=== PATIENT | female | born 1955 | race Caucasian/White ===

== ENCOUNTER → 2017-11-26 | Outpatient (CLI) | payer OTHER, BC ==
[~2017-11-26] MED LIST: AMAN100C18 PO; ASPEC325 PO; BUPR100T8 PO; CALCTAB5 PO; DILT-113 PO; FLUO20CA20 PO; FRRG PO; GLUCTAB7 PO; IBUP-1277 PO; LORA1TAB13 PO; MELO7.5T6 PO; MULT-506 PO; MYS50 PO; PROP20TA66 PO
--- NOTE | 2017-11-26 12:11 | EXERCISE STRESS ECHO ---
*NOTICE TO RECEIVING REPUBLICAN AGENCY This information is strictly Confidential and protected under [place] law. [place] law prohibits you from making any further disclosure of this information unless further disclosure is expressly permitted by the written consent of the person to whom it pertains or is authorized by law. A general authorization for the release of medical or other information is not sufficient for this purpose. Hospital accepts no responsibility if the information is made available to any other person, INCLUDING THE PATIENT. Interpretation Summary * Name: BAR AKINS Study Date: 11/26/2017 09:42 AM BP: 118/77 mmHg * Patient Location: [facility] HR: 77 * : 1955 (M/d/yyyy) Gender: Female Height: 67 in * Age: 62 yrs Ethnicity: [place] Weight: 160 lb * Ordering Physician: Garcia Bardales * Referring Physician: Garcia Bardales * Performed By: Libia Dacosta RDCS * * Reason For Study: Pre Op, Atypical Chest Pain, Dyspnea on Exertion, Abnormal EKG * BSA: 1.8 m2 * -- Conclusions -- * Nonischemic exercise stress echocardiogram. * No arrhythmias. * Normal HR and BP response to exercise. * Markedly reduced exercise tolerance for age. * At rest, normal LV chamber size with mild concentric LVH. * Normal LV systolic function, EF 55-60%. * No segmental left ventricular wall motion abnormalities are noted. * Grade I diastolic dysfunction. * Aortic valve sclerosis mild, without significant aortic valvular stenosis. Procedure Details * ECHOEX, CPT #[id number] * ECHO DOPPLER, CPT #[id number] * ECHO COLOR FLOW, CPT #[id number] Left Ventricle * The left ventricle is normal in size. * There is mild concentric left ventricular hypertrophy. * Ejection Fraction = 55-60%. * Left ventricular systolic function is normal. * No segmental left ventricular wall motion abnormalities are noted. * Resting wall motion: Normal. Stress wall motion: Appropriate increase in Left ventricular systolic function and decrease in cavity size. No stress induced segmental wall motion abnormalities. Right Ventricle * The right ventricular cavity size is normal (basal dimension <4.2 cm in right ventricular apical 4-chamber view). * The right ventricular systolic function is normal as assessed by tricuspid annular plane systolic excursion (TAPSE) (normal >1.5 cm). Atria * The left atrium is mildly dilated. * Right atrial size is normal. * No ASD detected; PFO is not assessed. Mitral Valve * There is mild mitral valve prolapse. * There is no mitral valve stenosis. * There is mild to moderate mitral regurgitation. Tricuspid Valve * The tricuspid valve is normal in structure and function. Aortic Valve * The aortic valve is trileaflet. * Aortic valve sclerosis mild, without significant aortic valvular stenosis. * There is no significant aortic regurgitation. Pulmonic Valve * The pulmonary valve is not well seen, but the Doppler examination is normal without significant regurgitation or stenosis. Great Vessels * The aortic root is normal size. Pericardium * There is no pericardial effusion. Stress Parameters * The baseline ECG displays normal sinus rhythm. * Baseline ECG displays Q waves in the anterior leads. * Stress ECG: No ST changes. No arrhythmias. * There was no new ST segment depression. * No arrhythmia were noted with stress. * The stress portion of this study was personally supervised by the undersigned interpreting physician. * Rest heart rate was '77' BPM. * Rest blood pressure was '118/77' * Maximum heart rate achieved was 141 bpm. * Maximum heart rate was 89 % of maximum age-predicted heart rate. * Maximum blood pressure was '165/70' * Total exercise time was '04:21' * Maximum exercise MET level achieved was '6.20' METS * Maximum treadmill speed was '2.50' miles per hour. * Maximum treadmill elevation was '12.00'% grade. Left Ventricular Diastolic Function * Grade I diastolic dysfunction, (abnormal relaxation pattern). MMode 2D Measurements and Calculations IVSd 1.2 cm IVSs 1.6 cm LVIDd 3.7 cm LVIDs 2.6 cm LVPWd 1.1 cm LVPWs 1.8 cm IVS/LVPW 1.2 FS 29.0 % EDV(Teich) 56.7 ml ESV(Teich) 24.6 ml EF(Teich) 56.6 % EDV(cubed) 49.1 ml ESV(cubed) 17.6 ml EF(cubed) 64.2 % % IVS thick 27.2 % % LVPW thick 71.9 % LV mass(C)d 136.8 grams LV mass(C)dI 74.4 grams/m\S\2 LV mass(C)s 166.6 grams LV mass(C)sI 90.6 grams/m\S\2 SV(Teich) 32.1 ml SI(Teich) 17.4 ml/m\S\2 SV(cubed) 31.5 ml SI(cubed) 17.1 ml/m\S\2 Ao root diam 3.3 cm Ao root area 8.7 cm\S\2 ACS 2.2 cm LA dimension 4.2 cm LA/Ao 1.3 LVAd ap4 28.3 cm\S\2 LVLd ap4 8.2 cm EDV(MOD-sp4) 84.7 ml EDV(sp4-el) 83.0 ml LVAs ap4 15.7 cm\S\2 LVLs ap4 6.3 cm ESV(MOD-sp4) 33.8 ml ESV(sp4-el) 33.4 ml EF(MOD-sp4) 60.1 % EF(sp4-el) 59.8 % LVAd ap2 26.2 cm\S\2 LVLd ap2 8.4 cm EDV(MOD-sp2) 72.7 ml EDV(sp2-el) 69.4 ml LVAs ap2 15.7 cm\S\2 LVLs ap2 7.1 cm ESV(MOD-sp2) 32.4 ml ESV(sp2-el) 29.3 ml EF(MOD-sp2) 55.5 % EF(sp2-el) 57.8 % LVLd %diff 2.2 % EDV(MOD-bp) 77.7 ml LVLs %diff 11.4 % ESV(MOD-bp) 33.6 ml EF(MOD-bp) 56.8 % SV(MOD-sp4) 50.9 ml SI(MOD-sp4) 27.7 ml/m\S\2 SV(MOD-sp2) 40.3 ml SI(MOD-sp2) 21.9 ml/m\S\2 SV(MOD-bp) 44.2 ml SI(MOD-bp) 24.0 ml/m\S\2 SV(sp4-el) 49.6 ml SI(sp4-el) 27.0 ml/m\S\2 SV(sp2-el) 40.1 ml SI(sp2-el) 21.8 ml/m\S\2 Doppler Measurements and Calculations MV E max fabricio 61.9 cm/sec MV A max fabricio 89.1 cm/sec MV E/A 0.69 MV dec time 0.26 sec Ao V2 max 112.6 cm/sec Ao max PG 5.1 mmHg Ao max PG (full) 2.6 mmHg LV V1 max PG 2.5 mmHg LV V1 max 79.3 cm/sec MR max fabricio 616.9 cm/sec MR max PG 152.6 mmHg MR mean fabricio 429.9 cm/sec MR mean PG 84.4 mmHg MR VTI 175.8 cm MR PISA 1.2 cm\S\2 MR PISA radius 0.43 cm PA V2 max 65.7 cm/sec PA max PG 1.7 mmHg TR max fabricio 211.9 cm/sec
== END | disposition home or self-care (01) ==
LOC: C.CPL 09:51
PROVIDERS: ATTEND Internal Medicine Cardiovascular Disease
DX: Z01.810 Encounter for preprocedural cardiovascular examination (principal); R07.89 Other chest pain; R06.09 Other forms of dyspnea; R94.31 Abnormal electrocardiogram [ECG] [EKG]

== ENCOUNTER 2019-06-07 09:04 | Inpatient (IN) ==
--- NOTE | 2019-04-30 22:02 | PAT Medication Instructions ---
Medication Instructions Date of Service April 30, 2019 Home Medications bupropion HCl 450 mg PO QAM calcium carbonate [Calcium 600] 600 mg PO QAM diltiazem HCl [Cardizem CD] 180 mg PO QAM fluoxetine 40 mg PO QAM ibuprofen 400 mg PO UD PRN lorazepam 1 mg PO Q6H PRN meloxicam 15 mg PO QAM multivitamin 1 tab PO QAM primidone 100 mg PO QID propranolol 20 mg PO TID ASK your surgeon for instructions ibuprofen 400 mg PO UD PRN meloxicam 15 mg PO QAM DO NOT take the morning of surgery calcium carbonate [Calcium 600] 600 mg PO QAM Take morning of surgery With a small sip of water, OTHERWISE NOTHING TO EAT OR DRINK AFTER MIDNIGHT: bupropion HCl 450 mg PO QAM diltiazem HCl [Cardizem CD] 180 mg PO QAM fluoxetine 40 mg PO QAM lorazepam 1 mg PO Q6H PRN (if needed) primidone 100 mg PO QID propranolol 20 mg PO TID Take evening before surgery lorazepam 1 mg PO Q6H PRN primidone 100 mg PO QID propranolol 20 mg PO TID Other Notes If you have any questions please call us at [phone] or [phone] or [phone] or [phone]
--- NOTE | 2019-05-21 21:05 | PAT Medication Instructions ---
Medication Instructions Date of Service May 21, 2019 Home Medications bupropion HCl 150 mg PO QAM calcium carbonate [Calcium 600] 600 mg PO QAM diltiazem HCl [Cardizem CD] 180 mg PO QAM fluoxetine 40 mg PO QAM ibuprofen 400 mg PO UD PRN lorazepam 1 mg PO Q6H PRN meloxicam 15 mg PO QAM multivitamin 1 tab PO QAM primidone 75 mg PO TID propranolol 20 mg PO TID bupropion HCl 300 mg PO QAM ASK your surgeon for instructions ibuprofen 400 mg PO UD PRN meloxicam 15 mg PO QAM DO NOT take the morning of surgery calcium carbonate [Calcium 600] 600 mg PO QAM multivitamin 1 tab PO QAM Take morning of surgery With a small sip of water, OTHERWISE NOTHING TO EAT OR DRINK AFTER MIDNIGHT: bupropion HCl 150 mg PO QAM diltiazem HCl [Cardizem CD] 180 mg PO QAM fluoxetine 40 mg PO QAM lorazepam 1 mg PO Q6H PRN (if needed) primidone 75 mg PO TID propranolol 20 mg PO TID bupropion HCl 300 mg PO QAM Other Notes If you have any questions please call us at [phone] or [phone] or [phone] or [phone]
--- NOTE | 2019-05-22 14:35 | Anesthesiology Consultation ---
Date of Service May 22, 2019 Assessment & Plan (1) Encounter for pre-operative examination: Chart Review Chart Review: Acceptable Risk for Surgery (pending pre op testing) and Patient seen in Pre Admission Testing Teaching & Discussion Instructed NPO after midnight before surgery, except medications with 15 cc of water. Medication instructions provided according to the PAT guidelines. History Surgery Operation Date: 06/07/19 13:15 Proposed Procedures p Right Total Knee Replacement - Phill Colmenares MD Height/Weight Height: 5 ft 7.5 in Weight: 77.2 kg Allergies Allergy/AdvReac Type Severity Reaction Status Date / Time Sulfa (Sulfonamide Allergy Unknown HIVES Verified 05/17/19 11:00 Antibiotics) oxycodone [From Percocet] AdvReac Unknown SEVERE Verified 05/17/19 11:00 HAEADACHE Medications Home Medications Medication Instructions Recorded Confirmed Last Taken bupropion HCl 150 mg PO QAM 10/31/18 05/17/19 11/21/18 calcium carbonate [Calcium 600] 600 mg PO QAM 10/31/18 05/17/19 11/21/18 diltiazem HCl [Cardizem CD] 180 mg PO QAM 10/31/18 05/17/19 11/21/18 fluoxetine 40 mg PO QAM 10/31/18 05/17/19 11/21/18 ibuprofen 400 mg PO UD PRN 10/31/18 05/17/19 Unknown lorazepam 1 mg PO Q6H PRN 10/31/18 05/17/19 Unknown meloxicam 15 mg PO QAM 10/31/18 05/17/19 11/21/18 multivitamin 1 tab PO QAM 10/31/18 05/17/19 11/21/18 primidone 75 mg PO TID 10/31/18 05/17/19 11/21/18 propranolol 20 mg PO TID 10/31/18 05/17/19 11/21/18 bupropion HCl 300 mg PO QAM 05/17/19 05/17/19 Unknown Past Medical History Medical History Anxiety Depression Hx of left bundle branch block Hypertension Osteoarthritis Parkinsonism HEAD AND HANDS Right knee DJD Exercise / Class Metabolic Activity II 4-5 Yardwork/Stairs/Walk up hill (Denies CP or SOB with 1 FOS, maybe SOB with 2 FOS) Past Family History Family History Father FHx: myocardial infarction, Onset Age: 73 Other No family history of adverse response to anesthesia Past Surgical History Surgical History History of cataract surgery bilateral History of cholecystectomy History of colonoscopy History of dilatation and curettage History of total knee replacement LEFT Past Anesthesia History No Hx of Anesthesia Complications and No Family Hx of Anesthesia Complications History of PONV No Hx of PONV and Hx of Motion Sickness Social History Smoking Status: Never smoker Do You Dip or Chew Tobacco: No Hx Alcohol Use: No Hx Substance Use: No substance use type: does not use Review of Systems Pt denies any recent chest pain, shortness of breath, palpitations, cough, fever or URI. Physical Exam Vital Signs BP: 111/73 P: 68bpm SPO2: 95% RA T: 98.2 F R: 16 ENMT Mouth: + dental restorations (maybe some crowns, pt unsure); no chipped teeth and no loose teeth Thyromental Distance: > or= 3.5 Finger Breadths (3.5) Mallampati Class: I Neck normal visual inspection; neck extension not limited Respiratory normal respiratory effort Auscultation: lungs clear to auscultation bilaterally Cardiovascular Rate/Rhythm: regular rate and regular rhythm Heart Sounds: no murmur Extremities: no edema
--- NOTE | 2019-05-22 15:20 | XRay Report ---
XR chest Pre-admission PA/Lat CLINICAL HISTORY: Preoperative chest COMPARISON STUDY: 09/14/2014 FINDINGS: The cardiac and mediastinal contours are normal. There is no evidence of focal pulmonary co nsolidation. There is no evidence of failure. No pleural effusions are visualized.[ IMPRESSION: No active disease in the chest. ACT 112: Negative or not required by law. Electronically signed by: Pepe Santiago M.D. 05/22/2019 3:19 PM
[2019-05-22 15:56] LABS: Basophils # (auto) 0.06 K/uL (0-0.2); Basophils % (auto) 0.6 %; Eosinophils # (auto) 0.61 K/uL (0-0.5); Eosinophils % (auto) 6.1 %; Hematocrit (blood only) 44.1 % (37-47); Hemoglobin 14.4 g/dL (12.0-16.0); Immature Granulocytes # (auto) 0.03 K/uL (0.00-0.02); Immature Granulocytes % (auto) 0.3 %; Lymphocytes % (auto) 27.1 %; Mean Corpuscular Hemoglobin 32.4 pg (25-34); Mean Corpuscular Hgb Conc 32.7 g/dL (32-36); Mean Corpuscular Volume 99.1 fL (80-100); Mean Platelet Volume 10.5 fL (7.4-10.4); Monocytes # (auto) 0.72 K/uL (0.11-0.59); Monocytes % (auto) 7.2 %; Neutrophils # (auto) 5.86 K/uL (1.4-6.5); Neutrophils % (auto) 58.7 %; Platelet Count 287 K/uL (130-400); RDW Coefficient of Variation 12.6 % (11.5-14.5); RDW Standard Deviation 45.6 fL (36.4-46.3); Red Blood Count 4.45 M/uL (4.2-5.4); White Blood Count 9.98 K/uL (4.8-10.8)
[2019-05-22 16:08] LABS: BUN Creatinine Ratio 11.7 (10-20); Blood Urea Nitrogen 11 mg/dl (7-18); C Reactive Protein < 0.29 mg/dl (0-0.29); Calcium 9.1 mg/dl (8.5-10.1); Carbon Dioxide 26 mmol/L (21-32); Chloride 109 mmol/L (98-107); Creatinine Clr Calc Pharmacy 61.9 ml/min; Est GFR (African American) 70.2; Est GFR (Non-African American) 60.5; Glucose 93 mg/dl (70-99); Potassium 4.2 mmol/L (3.5-5.1); Sodium 139 mmol/L (136-145)
[2019-05-22 16:17] LABS: Partial Thromboplastin Ratio 0.9; Prothrombin Time 10.3 Seconds (9.0-12.0)
--- NOTE | 2019-05-22 16:25 | Electrocardiogram Report ---
Test Reason : Blood Pressure : / mmHG Vent. Rate : 070 BPM Atrial Rate : 070 BPM P-R Int : 198 ms QRS Dur : 098 ms QT Int : 430 ms P-R-T Axes : 003 -13 103 degrees QTc Int : 464 ms Normal sinus rhythm Poor R wave progression, consider anterior AL vs. lead placement vs. LVH Abnormal ECG When compared with ECG of 14-SEP-2014 11:50, Confirmed by Leonardo Ward ([id number]) on 05/22/2019 4:25:38 PM Referred By: Phill Colmenares Confirmed By:Leonardo Ward
[~2019-06-07 09:04] MED LIST changes: +ACETAMINOPHEN 500 MG TAB PO SCH; -AMAN100C18 PO; -ASPEC325 PO; +ATROPINE SULFATE 0.1 MG/ML 10ML SYR IV PRN; +BUPIVACAINE 0.5 % 5 MG/1 ML PF 10ML VIAL ONE; +BUPIVACAINE LIPOSOME/PF 266 MG, BUPIVACAINE/EPINEPHRINE 50 ML, SODIUM CHLORIDE 0.9% 30 ... INFIL SCH; -BUPR100T8 PO; -CALCTAB5 PO; +CEFAZOLIN 2000MG 2,000 MG/15 ML SYR IV SCH; -DILT-113 PO; +FAMOTIDINE 20 MG TAB PO SCH; -FLUO20CA20 PO; -FRRG PO; +GABAPENTIN 300 MG CAP PO SCH; -GLUCTAB7 PO; -IBUP-1277 PO; -LORA1TAB13 PO; +LR 500ML BOLUS, THEN 15ML/HR IV SCH; +LR 60ML/HR IV SCH; -MELO7.5T6 PO; +METOCLOPRAMIDE HCL 10 MG TABLET PO SCH; -MULT-506 PO; -MYS50 PO; +ONDANSETRON INJ 2 MG/ML 2 ML VIAL IV PRN; -PROP20TA66 PO; +SCOPOLAMINE 1.5 MG TDSY TD SCH; +SODIUM CHLORIDE 0.9% 1,000 ML IV SCH; +TRANEXAMIC ACID 1,000 MG **IV Intra-op IV SCH; +ePHEDrine sulfate 50 MG/ML AMP IV PRN; +fentaNYL citrate 100 MCG/2 ML VIAL IV PRN
[2019-06-07] MEDS ORDERED: LIDOCAINE HCL 2% 2 ML VIAL/AMP(20MG/ML) INFIL ONE (10:43)
[2019-06-07] MEDS ORDERED: PROPOFOL IV EMULSION 10 MG/ML 20 ML VIAL IV ONE ×2 (10:43→13:49)
[2019-06-07] MEDS ORDERED: fentaNYL citrate 100 MCG/2 ML VIAL ONE (10:47)
[2019-06-07] MEDS ORDERED: MIDAZOLAM HCL 1 MG/ML 2ML VIAL ONE ×2 (10:48→12:35)
[2019-06-07] MEDS ORDERED: fentaNYL citrate 100 MCG/2 ML VIAL IV PRN (11:01)
[2019-06-07] MEDS ORDERED: ePHEDrine sulfate 50 MG/ML AMP IV PRN (11:01)
[2019-06-07] MEDS ORDERED: ATROPINE SULFATE 0.1 MG/ML 10ML SYR IV PRN (11:01)
[2019-06-07] MEDS ORDERED: ONDANSETRON INJ 2 MG/ML 2 ML VIAL IV PRN ×2 (11:01→16:18)
[2019-06-07] MEDS ORDERED: BUPIVACAINE/EPINEPHRINE 0.25% 1:200,000 30 ML VIAL ONE (11:07)
[2019-06-07] MEDS ORDERED: BUPIVACAINE LIPOSOME 1.3% 266 MG/20 ML VIAL ONE (11:08)
[2019-06-07] MEDS ORDERED: BACITRACIN INJ 50,000 UNIT VIAL ONE (11:08)
[2019-06-07] MEDS ORDERED: SODIUM CHLORIDE 0.9% PF 50 ML VIAL ONE (11:08)
--- NOTE | 2019-06-07 11:48 | History & Physical Bridge Note ---
Date of Service June 07, 2019 History & Physical Bridge Note I have examined the patient, reviewed the History & Physical and in the interval since the performance of the History & Physical I have noted the following changes of clinical significance: no changes noted
[2019-06-07] MEDS ORDERED: ONDANSETRON INJ 2 MG/ML 2 ML VIAL ONE (13:49)
--- NOTE | 2019-06-07 14:08 | Operative Report ---
Post Operative Report Pre & Post Diagnosis Operation Date: 06/07/19 11:30 Pre-Op Diagnosis: Right Knee Advanced Degenerative Joint Disease Post-Op Diagnosis: Right Knee Advanced Degenerative Joint Disease I identified the patient and participated in the time-out.: Yes Procedure Operation Date: 06/07/19 11:30 Actual Procedures p Right Total Knee Arthroplasty(Right) - Phill Colmenares MD Surgeon Phill Colmenares MD Staff Development Coordinator [place], PAC Estimated Blood Loss 50 Findings Consistent with Post-Op Diagnosis Operative findings revealed advanced right knee DJD with extensive grade 4 [id number] disease and eburnation of the medial femoral condyle medial tibial plateau. She had spotty grade 4 changes laterally. Pretty extensive grade 4 changes of the patellofemoral joint. She had a varus deformity to her knee with a moderate sized knee joint effusion. She had osteophytes primarily in the medial compartment as well as the patellofemoral compartment. Fluids 1700 cc Specimens Right knee sent for pathology. Drains None. Anesthesia Type Spinal MAC Complications none Disposition Accompanied Patient To Recovery: No Disposition: Recovery Room Indications Patient is a 64-year-old female whose had a long history of knee problems. She does have some underlying Parkinson disease but is managed this quite well. She has a history of left knee replacement done in the past which has done quite well. Over the past several years she developed increased pain discomfort deformity in her right knee. She failed conservative treatment. She elected proceed with operative treatment. Description of Procedure Operative implants consist of: 1. Biomet Vanguard size 62.5 right posterior by femoral component. 2. Biomet size 63 tibial tray. 3. 10 mm posterior box polyethylene insert. 4. 31 x 8 all poly-patella. Patient was taken to the operating room and identified and placed on the operating room table in the supine position protectors were properly padded. IV antibiotics arrived by anesthesia team. A spinal anesthetic and abductor canal block had been provided in the holding area. Sierra catheter was placed in sterile fashion. Right thigh tip was then placed in the right lower extremities and prepped and draped in usual sterile fashion. The right leg was elevated and exsanguinated with use of an Esmarch and turns placed at 3 mmHg. An anterior approach to the right knee was then performed through a longitudinal incision centered over the patella. Sharp dissection was gone through subcutaneous tissue down below the extensor mechanism. A medial parapatellar arthrotomy incision was made. Some subperiosteal dissection was carried out medially. The fat pad was resected from each patella tendon. The lateral patellofemoral ligament was released. The patella was subluxated laterally and the knee was flexed. The osteophytes were taken off the distal femur. The ACL and PCL were then released from distal femur the tibia subluxated anteriorly. The external tibial alignment jig was then placed in the interface the tibia and adjusted 14 mm medially. The proximal tibial cut was made to move about 2 mm of bone from the most efficient aspect medial tibial plateau. Some osteophytes were taken off medial and posterior medially. Tibia was then sized to a size 63. Attention then drawn to the femur. The distal femur was then with a sharp drill bit intramedullary canal was suction. A right 5 degree valgus cutting guide was placed but this femoral cutting block was pinned in place. Distal femoral cut was made to take an additional 3 mm of bone off distal femur. The femur was then sized to a 62.5. We did downsize this almost an entire size. The AP cutting block was pinned parallel to the epicondylar axis which was 4 degrees of external rotation. The anterior cut, anterior chamfer, posterior cut, posterior chamfer cuts were made. Box cutting guide was placed in just slight lateral box cut was made. The knee was flexed. The remnants of medial lateral menisci were excised. The osteo phytes were taken off the posterior aspect of the femur. A trial femoral component was placed. The tibial tray was pinned in maximum external rotation and drill and stem punch we used to create defect in proximal tip for the tibial tray. The knee was then trialed and the 10 mm insert fit most appropriately. Attention drawn the patella. The patella was cleaned of all soft tissues. Patella thickness measured 18 mm in thickness and was cut down to 10. Patella was sized to a size 31. Locals were drilled for 31 patella. Lateral osteophytes removed. Patella button was placed. Knee was taken through range of motion patella tracked nicely with no thumbs test. Attention then drawn toward placing the permanent components. All trial components were removed. Bone plug was placed in the disc femur limit blood loss with a double batch Palacos G cement was mixed. BiomTriada Gamesguard size 62.5 right posterior by femoral component, size 63 tibial tray, 10 mm posterior box polyethylene insert, and a 31 x 8 all poly-patella were then cemented in place. Knees brought into full extension total cement hardened. Final cement check was then performed. The pericapsular tissues were injected with total 100 cc of combination of 20 cc of Exparel, 30 cc of normal saline, 50 cc of quarter percent Marcaine with epinephrine. Patient did receive 1 g of tranexamic acid per the tourniquet was then let down for final tourniquet time of 50 minutes. Hemostasis assured use electrocautery. The wounds once again irrigated. Extensor mechanism then closed with combination 1 PDS suture #1 Vicryl suture in [id number] fashion for extensor mechanism checked found to be intact with subcutaneous tissue then closed with 2 Dexon suture in a buried knot fashion skin was closed skin gil. Leg was then cleaned dried a sterile dressing composed Xeroform, 4 x 4's, sterile cast padding, Hernandez bandage were applied. Patient then transferred to the recovery room in stable condition. Patient tolerated procedure well no complications. I attest to the content of the Intraoperative Record and any orders documented therein. Any exceptions are noted below.
--- NOTE | 2019-06-07 14:39 | XRay Report ---
XR knee RT 1 or 2V routine CLINICAL HISTORY: Surgical Post Op COMPARISON: None. DISCUSSION: Anatomic location post total right knee arthroplasty. Good contact between prosthetic and underlying bone. Surgical drains are in position. IMPRESSION: Anatomic alignment posttotal right knee arthroplasty. ACT 112: Negative or not required by law. The above report was generated using voice recognition software. It may contain grammatical, syntax or spelling errors. Electronically signed by: Celestino Perez M.D. 06/07/2019 2:38 PM
--- NOTE | 2019-06-07 15:36 | Anesthesiology Progress Note ---
Date of Service June 07, 2019 Anesthesia Post Procedure Vital Signs Vital Signs: Temp Pulse Pulse Resp BP Pulse Ox 06/07/19 15:25 54 L 12 131/69 98 06/07/19 15:15 47 L 14 140/69 97 06/07/19 15:05 51 L 12 148/67 H 98 06/07/19 14:55 51 L 15 136/60 98 06/07/19 14:45 50 L 15 142/64 H 92 06/07/19 14:35 47 L 15 132/64 96 06/07/19 14:25 50 L 19 148/69 H 96 06/07/19 14:15 53 L 14 149/69 H 100 06/07/19 14:09 97.0 F L 51 L 12 138/67 100 06/07/19 09:30 98.4 F 62 18 123/74 95 Transfer of Care Handoff Completed per policy Notes Mental Status: alert / awake / arousable and participated in evaluation Patient Amnestic to Procedure: Yes Nausea / Vomiting: adequately controlled Pain: adequately controlled Airway Patency, RR, SpO2: stable & adequate BP & HR: stable & adequate Hydration State: stable & adequate Neuraxial Anesthesia: was administered and sensory block is resolving Anesthetic Complications: no major complications apparent and Pt Satisfied with anesthetic care
[2019-06-07] MEDS ORDERED: SODIUM CHLORIDE 0.9% 1000ML 1,000 ML IV SCH (16:18)
[2019-06-07] MEDS ORDERED: HYDROmorphone INJ 0.5 MG/0.5 ML SYR IV PRN (16:18)
[2019-06-07] MEDS ORDERED: bisacodyL 10 MG SUPP PR PRN (16:18)
[2019-06-07] MEDS ORDERED: METOCLOPRAMIDE HCL INJ 5 MG/ML 2 ML VIAL IV PRN (16:18)
[2019-06-07] MEDS ORDERED: MAGNESIUM HYDROXIDE SUSP 30 ML UDC PO PRN (16:18)
[2019-06-07] MEDS ORDERED: ALUMINUM/MAGNESIUM SUSP 30 ML UDC PO PRN (16:18)
[2019-06-07] MEDS ORDERED: ACETAMINOPHEN 1,000 MG/100 ML VIAL IV PRN (16:18)
[2019-06-07] MEDS ORDERED: NALOXONE HCL 0.4 MG/1 ML VIAL/CARP IV PRN (16:18)
[2019-06-07] MEDS ORDERED: INFLUENZA ADMINISTRATION CHARGE ONE (16:47)
[2019-06-07] MEDS ORDERED: INFLUENZA VACCINE HIGH DOSE 65+ 0.5 ML SYR IM ONE (16:47)
[2019-06-07] MEDS: CHECK SCOPOLAMINE PATCH PLACEMENT SCH ×2 (17:11→22:28)
[2019-06-07] MEDS: ASCORBIC ACID 500 MG TAB PO SCH (18:04)
[2019-06-07] MEDS: KETOROLAC TROMETHAMINE 15 MG/ML VIAL IV SCH ×2 (18:04→22:02)
[2019-06-07] MEDS: FERROUS GLUCONATE 324 MG TAB PO SCH (18:05)
[2019-06-07] MEDS ORDERED: TRANEXAMIC ACID / 0.7% NACL 1,000 MG/100 ML BAG IV SCH (20:15)
[2019-06-07] MEDS: TRAMADOL HCL 50 MG TABLET PO PRN (20:52)
[2019-06-07] MEDS: PROPRANOLOL HCL 20 MG TAB PO SCH (20:54)
[2019-06-07] MEDS: SENNA 8.6 MG TAB PO SCH (20:54)
[2019-06-07] MEDS: DOCUSATE SODIUM 100 MG CAP PO SCH (20:55)
[2019-06-07] MEDS: ASPIRIN 81 MG ECTAB PO SCH (20:56)
[2019-06-07] MEDS: ACETAMINOPHEN 500 MG TAB PO SCH (20:57)
[2019-06-07] MEDS: PRIMIDONE 50 MG TAB PO SCH (20:57)
[2019-06-07] MEDS: CEFAZOLIN 1000MG 1,000 MG/7.5 ML SYR IV SCH (21:02)
[2019-06-07] MEDS: LORazepam 1 MG TAB PO PRN (23:55)
[2019-06-08] MEDS: KETOROLAC TROMETHAMINE 15 MG/ML VIAL IV SCH ×4 (04:07→22:48)
[2019-06-08] MEDS: CEFAZOLIN 1000MG 1,000 MG/7.5 ML SYR IV SCH (04:08)
[2019-06-08 05:29] LABS: Hematocrit (blood only) 35.5 % (37-47); Hemoglobin 11.6 g/dL (12.0-16.0); Mean Corpuscular Hemoglobin 32.3 pg (25-34); Mean Corpuscular Hgb Conc 32.7 g/dL (32-36); Mean Corpuscular Volume 98.9 fL (80-100); Mean Platelet Volume 10.1 fL (7.4-10.4); Platelet Count 197 K/uL (130-400); RDW Coefficient of Variation 12.6 % (11.5-14.5); RDW Standard Deviation 45.5 fL (36.4-46.3); Red Blood Count 3.59 M/uL (4.2-5.4); White Blood Count 9.41 K/uL (4.8-10.8)
[2019-06-08 06:00] LABS: Calcium 8.4 mg/dl (8.5-10.1); Creatinine Clr Calc Pharmacy 64.7 ml/min; Est GFR (African American) 73.8; Est GFR (Non-African American) 63.7; Potassium 4.1 mmol/L (3.5-5.1)
[2019-06-08] MEDS: ACETAMINOPHEN 500 MG TAB PO SCH ×3 (06:12→21:26)
[2019-06-08] MEDS: TRAMADOL HCL 50 MG TABLET PO PRN (06:13)
--- NOTE | 2019-06-08 07:55 | Anesthesiology Progress Note ---
Date of Service June 08, 2019 Anesthesia Post Procedure Vital Signs Vital Signs: Temp Pulse Pulse Pulse Pulse Resp BP 06/08/19 03:45 36.6 C 60 18 112/65 06/07/19 23:30 36.6 C 61 18 128/69 06/07/19 20:51 93 H 122/72 06/07/19 19:08 36.8 C 59 L 17 124/68 06/07/19 18:05 58 L 16 135/84 06/07/19 17:15 36.6 C 51 L 16 146/78 H 06/07/19 17:05 55 L 16 141/73 H 06/07/19 16:38 36.6 C 56 L 17 108/79 06/07/19 16:05 36.5 C 54 L 15 146/66 H 06/07/19 15:45 51 L 14 149/72 H 06/07/19 15:35 36.9 C 51 L 12 129/74 06/07/19 15:25 54 L 12 131/69 06/07/19 15:15 47 L 14 140/69 06/07/19 15:05 51 L 12 148/67 H 06/07/19 14:55 51 L 15 136/60 06/07/19 14:45 50 L 15 142/64 H 06/07/19 14:35 47 L 15 132/64 06/07/19 14:25 50 L 19 148/69 H 06/07/19 14:15 53 L 14 149/69 H 06/07/19 14:09 36.1 C L 51 L 12 138/67 06/07/19 09:30 36.9 C 62 18 123/74 Pulse Ox 06/08/19 03:45 94 06/07/19 23:30 96 06/07/19 20:51 06/07/19 19:08 98 06/07/19 18:05 98 06/07/19 17:15 100 06/07/19 17:05 98 06/07/19 16:38 99 06/07/19 16:05 100 06/07/19 15:45 92 06/07/19 15:35 100 06/07/19 15:25 98 06/07/19 15:15 97 06/07/19 15:05 98 06/07/19 14:55 98 06/07/19 14:45 92 06/07/19 14:35 96 06/07/19 14:25 96 06/07/19 14:15 100 06/07/19 14:09 100 06/07/19 09:30 95 Pain Intensity Right Leg: Pain Intensity: 8 Notes Mental Status: alert / awake / arousable and participated in evaluation Patient Amnestic to Procedure: Yes Nausea / Vomiting: adequately controlled Pain: adequately controlled Airway Patency, RR, SpO2: stable & adequate BP & HR: stable & adequate Hydration State: stable & adequate Neuraxial Anesthesia: was administered and sensory block resolved Anesthetic Complications: no major complications apparent and Pt Satisfied with anesthetic care
--- NOTE | 2019-06-08 08:05 | Progress Note ---
DATE: 06/08/2019 SUBJECTIVE: A 64-year-old female postop day 1 from right knee replacement. She is doing okay. Her block wore off and had quite a bit of pain right after that. She is doing better this morning. No chest pain or shortness of breath. Not feeling dizzy or lightheaded. She would like some stronger pain medicine. OBJECTIVE: VITAL SIGNS: Temperature 36.6. Vital signs stable. GENERAL: Shows a pleasant, middle-aged female. She is lying in bed, looks reasonably comfortable this morning. She is oriented. LUNGS: Clear to auscultation. HEART: Has regular rate and rhythm. ABDOMEN: Soft, nontender, nondistended. EXTREMITIES: Grossly neurovascularly intact except as follows: Examination of the right lower extremity reveals the dressing to be clean, dry and intact. Leg is well aligned. She can dorsiflex and plantarflex her foot appropriately. She is neurologically intact. She has got brisk refill. LABORATORY DATA: Hemoglobin 11.6. Hematocrit 35.5. Electrolytes are stable. ASSESSMENT: A 64-year-old white female with underlying Parkinson's disease, postop day 1 from right knee replacement, doing reasonably well. She had a difficult time when the block wore off, but seems to be doing better. We are going to try and change her pain medicine. PLAN: 1. DVT prophylaxis including thigh-high TEDs, SCDs, and aspirin twice a day. 2. PT/OT. Weight bear as tolerated. Right total knee protocol. 3. Pain control. We are going to change her from tramadol to Dilaudid and see how she does with that. 4. Disposition: She is hoping to be discharged to home with some home health and some family's assistance if she does okay in therapy.
[2019-06-08] MEDS ORDERED: MULTIVITAMIN TAB PO SCH (09:00)
[2019-06-08] MEDS: FLUOXETINE HCL 20 MG CAP PO SCH (09:03)
[2019-06-08] MEDS: HYDROmorphone HCL 2 MG TAB PO PRN ×2 (09:03→16:53)
[2019-06-08] MEDS: BuPROPion XL 150 MG TABCR PO SCH (09:04)
[2019-06-08] MEDS: FERROUS GLUCONATE 324 MG TAB PO SCH ×2 (09:04→17:51)
[2019-06-08] MEDS: PROPRANOLOL HCL 20 MG TAB PO SCH ×3 (09:04→21:24)
[2019-06-08] MEDS: PRIMIDONE 50 MG TAB PO SCH ×3 (09:04→21:26)
[2019-06-08] MEDS: CALCIUM CARBONATE 1250MG TAB PO SCH (09:04)
[2019-06-08] MEDS: DOCUSATE SODIUM 100 MG CAP PO SCH ×2 (09:04→21:25)
[2019-06-08] MEDS: MULTIVITAMIN TAB PO SCH (09:04)
[2019-06-08] MEDS: ASCORBIC ACID 500 MG TAB PO SCH ×2 (09:05→17:51)
[2019-06-08] MEDS: dilTIAZem HCL 180 MG CAPCR PO SCH (09:05)
[2019-06-08] MEDS: CHECK SCOPOLAMINE PATCH PLACEMENT SCH ×2 (09:06→16:43)
[2019-06-08] MEDS: ASPIRIN 81 MG ECTAB PO SCH ×2 (09:07→21:24)
[2019-06-08] MEDS: SENNA 8.6 MG TAB PO SCH (21:25)
[2019-06-08] MEDS: LORazepam 1 MG TAB PO PRN (22:47)
[2019-06-09] MEDS: HYDROmorphone HCL 2 MG TAB PO PRN ×2 (00:32→09:53)
[2019-06-09] MEDS: CHECK SCOPOLAMINE PATCH PLACEMENT SCH ×2 (00:40→08:41)
[2019-06-09] MEDS: ACETAMINOPHEN 500 MG TAB PO SCH (05:33)
[2019-06-09] MEDS: KETOROLAC TROMETHAMINE 15 MG/ML VIAL IV SCH (05:34)
[2019-06-09] MEDS: dilTIAZem HCL 180 MG CAPCR PO SCH (08:42)
[2019-06-09] MEDS: FLUOXETINE HCL 20 MG CAP PO SCH (08:42)
[2019-06-09] MEDS: BuPROPion XL 150 MG TABCR PO SCH (08:43)
[2019-06-09] MEDS: ASCORBIC ACID 500 MG TAB PO SCH (08:43)
[2019-06-09] MEDS: MULTIVITAMIN TAB PO SCH (08:43)
[2019-06-09] MEDS: FERROUS GLUCONATE 324 MG TAB PO SCH (08:43)
[2019-06-09] MEDS: ASPIRIN 81 MG ECTAB PO SCH (08:43)
[2019-06-09] MEDS: PROPRANOLOL HCL 20 MG TAB PO SCH (08:43)
[2019-06-09] MEDS: CALCIUM CARBONATE 1250MG TAB PO SCH (08:43)
[2019-06-09] MEDS: PRIMIDONE 50 MG TAB PO SCH (08:44)
[2019-06-09] MEDS: DOCUSATE SODIUM 100 MG CAP PO SCH (08:53)
--- NOTE | 2019-06-09 09:28 | Progress Note ---
DATE: 06/09/2019 SUBJECTIVE: A 64-year-old white female postop day 2 from a right knee replacement. She is doing better this morning. Pain seems to be doing better on the pain medicine. No chest pain or shortness of breath. Not feeling dizzy or lightheaded. OBJECTIVE: VITAL SIGNS: Temperature is 37.1. Vital signs stable. GENERAL: Shows a pleasant, middle-aged female. Lying in bed, looks pretty comfortable. EXTREMITIES: Examination of the right leg reveals the dressing to be clean, dry and intact. Just a trace bit of bloody drainage. She can do a straight leg raise. Calf is soft and supple. She is neurologically intact. ASSESSMENT: A 64-year-old white female postop day 2 from right knee replacement, doing pretty well. Pain is controlled. She is neurologically intact. PLAN: 1. DVT prophylaxis including thigh-high TEDs, SCDs, and aspirin twice a day. 2. PT/OT. Weight bear as tolerated. Right total knee protocol. 3. Pain control, doing pretty well with current pain regimen. 4. Disposition: Plan to discharge to home with some home health later today.
--- NOTE | 2019-06-12 19:26 | Discharge Summary ---
ADMITTING PHYSICIAN AND SURGEON: Dr. Phill Colmenares. ADMITTING DIAGNOSIS: Right knee degenerative joint disease. SURGERY PERFORMED: Right total knee arthroplasty. SECONDARY DIAGNOSES: Parkinson's disease, hypertension, history of heart attack, gastroesophageal reflux disease, TMJ. HISTORY AND PHYSICAL EXAMINATION: Well documented in the patient's chart. HOSPITAL COURSE: The patient was admitted on 06/07/2019 underwent total knee arthroplasty, tolerated the procedure well. There were no complications. She tolerated the procedure well. She was transferred to the PACU postoperatively and later to the orthopedic floor for further care. She was given Ancef for antibiotic prophylaxis, FAWAD stockings, SCDs and aspirin for DVT prophylaxis. Hemoglobin, hematocrit and vital signs were monitored during her hospital stay and remained stable. She did not require any blood transfusions. There were no complications. By postoperative day 2, she was tolerating a regular diet, pain was controlled with oral pain medicine. She was participating in physical therapy. Postop day 2, she was discharged home, set up with home health services. She was given printed discharge instruction as well as new prescriptions for extra strength Tylenol, aspirin and hydromorphone. Continue her home medications, continue physical therapy, weightbearing as tolerated, FAWAD stockings. Follow up approximately 2 weeks postop or sooner if there are any problems or concerns.
== END 2019-06-09 11:36 | disposition home health service (06) | DRG 470 ==
LOC: ASU 09:04 → 3E 14:14

== ENCOUNTER 2021-01-19 17:22 | Observation (INO) ==
--- NOTE | 2021-01-19 18:05 | XRay Report ---
XR forearm LT 2V, XR wrist LT min 3V routine CLINICAL HISTORY: Fall. Left forearm and wrist pain. COMPARISON STUDY: None. FINDINGS: The bones are osteopenic. There is soft tissue swelling within the left wrist. There is a s lightly comminuted distal left radius fracture with intra-articular extension and volar angulation/di splacement. This demonstrates up to 5 mm of volar displacement. The carpal bones are intact. The prox imal radius and ulna are intact. The distal radius fracture is also slightly impacted. No elbow effus ion. No radiopaque foreign bodies. IMPRESSION: 1. Distal left radius fracture as described above. 2. No fractures within the proximal radius or ulna. ACT 112: Negative or not required by law. Electronically signed by: Torin Orta M.D. 01/19/2021 6:03 PM
[2021-01-19] MEDS ORDERED: MoRPHine SULFATE 10 MG/ML CARP/VIAL IM STA (18:51)
[2021-01-19] MEDS ORDERED: MoRPHine SULFATE 4 MG/ML 1 ML CARP\\VIAL IV STA (18:54)
--- NOTE | 2021-01-19 19:07 | Emergency Department Note ---
ED Visit Note Patient was seen and evaluated at the bedside w/ Lizette Pina PA-C. Please see their note for history, physical, details, and disposition. Patient with wrist fracture. Closed injury and neurovascular intact. Orthopedics was consulted. Patient was to be taken to the OR for fixation. .
--- NOTE | 2021-01-19 19:11 | Emergency Department Note ---
History of Present Illness General Chief complaint: Wrist Pain Stated complaint: LEFT WRIST INJURY History of Present Illness Maximum Pain Intensity: 9 This patient is a 65-year-old female who presents the emergency department complaining of an injury to the left wrist that occurred when she accidentally tripped walking her dog prior to arrival. The pain is described as excruciating and worse with any movement. She has not taken anything for pain. She denies any other injuries. She denies any numbness or tingling into her fingers. She is right-hand dominant. Home Medications Medication Instructions Recorded Confirmed Type diltiazem HCl 180 mg 180 mg PO QAM 10/31/18 06/24/20 History capsule,extended release 24 hr (Cardizem CD) fluoxetine 40 mg capsule 40 mg PO QAM 10/31/18 06/24/20 History lorazepam 1 mg tablet 1 mg PO Q8H PRN 10/31/18 06/24/20 History primidone 50 mg tablet 75 mg PO TID 10/31/18 06/24/20 History propranolol 20 mg tablet 20 mg PO TID 10/31/18 06/24/20 History bupropion HCl 100 mg tablet,12 hr 100 mg PO QPM 06/24/20 06/24/20 History sustained-release (Wellbutrin SR) bupropion HCl 100 mg tablet,12 hr 200 mg PO QAM 06/24/20 06/24/20 History sustained-release (Wellbutrin SR) aspirin 81 mg tablet,delayed 81 mg PO QAM #30 tab 06/26/20 Rx release lisinopril 2.5 mg tablet 2.5 mg PO HS #30 tab 06/26/20 Rx amoxicillin 500 mg tablet 2,000 mg PO ONCE #4 tab 12/02/20 Rx acetaminophen 500 mg tablet 1,000 mg PO Q8 #30 tab 01/20/21 Rx (Tylenol Extra Strength) oxycodone 5 mg tablet 5 - 10 mg PO Q4H PRN #15 tab 01/20/21 Rx Allergies Allergy/AdvReac Type Severity Reaction Status Date / Time Sulfa (Sulfonamide Allergy Unknown HIVES Verified 06/24/20 20:09 Antibiotics) Past Med/Surg History Medical History Anxiety Depression Hx of left bundle branch block Hypertension Mitral valve prolapse determined by imaging 05/2018 echo, posterior leaflet Osteoarthritis Parkinsonism HEAD AND HANDS Right knee DJD Surgical History History of cataract surgery bilateral History of cholecystectomy History of colonoscopy History of dilatation and curettage History of total knee replacement LEFT Family History Father FHx: myocardial infarction, Onset Age: 73 Other No family history of adverse response to anesthesia Social History Smoking Status: Never smoker Second Hand Exposure: Yes (daughter smokes in the home); Hx Alcohol Use: No Hx Substance Use: No Preferred Language: Italian Communication Ability: Effective Buckle Gluer Required: No Beliefs That Will Affect Care: None Current Living Situation: Family Current Living Situation Comment: daughter Other Information That Helps Us Care for You: No Feels Safe at Home: Yes Safety Concerns: Feels Safe At This Time Assistive Devices: Glasses Review of Systems A total of 6 systems reviewed and were otherwise negative Physical Exam Vital Signs Vital Signs - 24 hr 01/19/21 17:36 01/19/21 19:16 01/19/21 19:54 Temperature 36.8 C Temperature Source Temporal Artery Scan Pulse Rate 96 H Pulse Rate [Finger] 83 73 Pulse Rhythm [Finger] Respiratory Rate 20 18 18 Respiratory Effort / Characteristics Respiratory Depth Normal Respiratory Pattern Blood Pressure 131/74 Blood Pressure [Right Arm] 143/84 H 160/83 H Blood Pressure Mean 93 Blood Pressure Mean [Right Arm] 103 108 Blood Pressure Position [Right Arm] Pulse Oximetry 95 96 Oxygen Delivery Method Room Air Room Air Room Air Oxygen Flow Rate Sepsis Recent Fever Within 48 Hours No Sepsis New/Unexplained Change in Mental Status N/A Sepsis Action Taken by Nursing No Action Required 01/19/21 20:25 01/19/21 23:07 Temperature 36.6 C Temperature Source Oral Pulse Rate 68 Pulse Rate [Finger] 75 Pulse Rhythm [Finger] Regular Respiratory Rate 18 16 Respiratory Effort / Characteristics Non-Labored Respiratory Depth Normal Respiratory Pattern Regular Blood Pressure 137/93 Blood Pressure [Right Arm] 158/77 H Blood Pressure Mean Blood Pressure Mean [Right Arm] 104 Blood Pressure Position [Right Arm] Lying Pulse Oximetry 97 100 Oxygen Delivery Method Room Air Oxymask Oxygen Flow Rate 10 Sepsis Recent Fever Within 48 Hours Sepsis New/Unexplained Change in Mental Status Sepsis Action Taken by Nursing see below Constitutional WD/WN, vitals as above Eyes EOM intact bilaterally Neck trachea midline Respiratory normal respiratory effort, lungs clear to auscultation Cardiovascular RRR, no murmur, no edema Musculoskeletal LUE: There is an obvious deformity of the left wrist. Significant edema and tenderness to palpation over the radial aspect of the wrist. Radial pulse +2. Capillary refill in all of the fingers less than 2 seconds. Patient is able to wiggle the fingers. Sensation in all the fingers is intact. Skin is intact. Skin no rashes, warm and dry Intact Neurologic Alert and oriented x3. No focal motor deficits. Psychiatric Acting appropriately Course Course Critical pathways were initiated. Imaging was ordered by nursing staff. Patient was seen and examined by myself Vital signs including blood pressure were reviewed medications list was verified with patient Labs were obtained, and a saline lock was established The patient was referred morphine for pain We discussed her results. She voiced understanding. I contacted orthopedics who recommended surgical intervention. An EKG was performed and reviewed The patient was also seen and examined by my supervising physician Upon reevaluation, the patient's pain was much improved. The patient was seen by orthopedics. She was taken to the operating room for definitive management. She remained stable in the emergency department. Consultations Consultation #1: Dr. Keenan Administered Medications Acetaminophen (Acetaminophen 500 Mg Tab) 1,000 mg PO Q8 [facility] Stop: 02/19/21 05:59 Last Admin: 01/20/21 05:46 Dose: 1,000 mg Documented by: [id number] Aspirin (Aspirin 81 Mg Ectab) 81 mg PO QAM [facility] Stop: 02/19/21 08:59 Last Admin: 01/20/21 09:16 Dose: Not Given Documented by: [id number] Bupropion HCl (Bupropion Sr 100 Mg Tabcr) 200 mg PO QAM [facility] Stop: 02/19/21 08:59 Last Admin: 01/20/21 09:08 Dose: 200 mg Documented by: [id number] Diltiazem HCl (Diltiazem Hcl 180 Mg Capcr) 180 mg PO QAM [facility] Stop: 02/19/21 08:59 Last Admin: 01/20/21 09:10 Dose: 180 mg Documented by: [id number] Docusate Sodium (Docusate Sodium 100 Mg Cap) 100 mg PO BID [facility] Stop: 02/19/21 08:59 Last Admin: 01/20/21 09:10 Dose: 100 mg Documented by: [id number] Fluoxetine HCl (Fluoxetine Hcl 20 Mg Cap) 40 mg PO QAM [facility] Stop: 02/19/21 08:59 Last Admin: 01/20/21 09:08 Dose: 40 mg Documented by: [id number] Hydromorphone HCl (Hydromorphone Inj 0.5 Mg/0.5 Ml Syr) 0.5 mg IV Q4H PRN PRN Reason: Pain or Pre PT Stop: 02/03/21 00:47 Last Admin: 01/20/21 03:32 Dose: 0.5 mg Documented by: [id number] Cefazolin Sodium (Ancef 1000mg) 1,000 mg in 7.5 mls @ 2.5 mls/min IV Q8H [facility]; Protocol Stop: 01/20/21 14:02 Last Admin: 01/20/21 05:45 Dose: 2.5 mls/min Documented by: [id number] Multivitamins (Multivitamin Tab) [facility] Stop: 02/19/21 08:59 Last Admin: 01/20/21 09:10 Dose: 1 tab Documented by: [id number] Oxycodone HCl (Oxycodone Hcl Ir 5 Mg Tab (Immediate Release)) 5 - 10 mg PO Q4H PRN PRN Reason: Pain or Pre PT Stop: 02/03/21 00:47 Last Admin: 01/20/21 09:07 Dose: 5 mg Documented by: [id number] Admin: 01/20/21 08:10 Dose: 5 mg Documented by: [id number] Admin: 01/20/21 01:51 Dose: 10 mg Documented by: [id number] Primidone (Primidone 50 Mg Tab) 75 mg PO TID [facility] Stop: 02/19/21 08:59 Last Admin: 01/20/21 09:09 Dose: 75 mg Documented by: [id number] Propranolol HCl (Propranolol Hcl 20 Mg Tab) 20 mg PO TID [facility] Stop: 02/19/21 08:59 Last Admin: 01/20/21 09:10 Dose: 20 mg Documented by: [id number] Discontinued Medications Bupivacaine HCl (Bupivacaine 0.5 % 5 Mg/1 Ml Mpf 30ml Vial) Confirm Administered Dose 30 ml .ROUTE .STK-MED ONE Stop: 01/19/21 21:27 Last Admin: 01/19/21 22:44 Dose: 10 ml Documented by: [id number] Cefazolin Sodium (Ancef 2000mg) 2,000 mg in 15 mls @ 3.75 mls/min IV PREOP ONE Stop: 01/19/21 22:05 Last Admin: 01/19/21 21:38 Dose: 3.75 mls/min Documented by: [id number] Sodium Chloride (Nss 1000ml) 1,000 mls @ 100 mls/hr IV .Q10H MELINDA Stop: 01/21/21 06:00 Last Infusion: 01/20/21 06:03 Dose: 0 mls/hr Documented by: [id number] Admin: 01/20/21 01:47 Dose: 100 mls/hr Documented by: [id number] Morphine Sulfate (Morphine Sulfate 4 Mg/Ml 1 Ml Carp\Vial) 4 mg IV NOW STA Stop: 01/19/21 18:55 Last Admin: 01/19/21 19:20 Dose: 4 mg Documented by: [id number] Medical Decision Making Medical Records Attestation: I reviewed the patient's medical records. Home Medications Current Medication List: was personally reviewed by me Laboratory Data Attestation: I reviewed the patient's lab results. Result diagrams: 01/19/21 19:10 01/19/21 19:10 Lab Results 01/19/21 01/19/21 01/19/21 Range/Units 19:10 19:10 19:12 WBC 11.46 H (4.8-10.8) K/uL RBC 4.32 (4.2-5.4) M/uL Hgb 14.1 (12.0-16.0) g/dL Hct 42.3 (37-47) % MCV 97.9 (80-100) fL MCH 32.6 (25-34) pg MCHC 33.3 (32-36) g/dL RDW Std Deviation 44.4 (36.4-46.3) fL RDW Coeff of Brigid 12.4 (11.5-14.5) % Plt Count 264 (130-400) K/uL MPV 10.7 H (7.4-10.4) fL Immature Gran % (Auto) 0.5 % Neut % (Auto) 72.0 % Lymph % (Auto) 17.7 % [place] % (Auto) 6.3 % Eos % (Auto) 3.0 % Baso % (Auto) 0.5 % Neut # (Auto) 8.25 H (1.4-6.5) K/uL Lymph # (Auto) 2.03 (1.2-3.4) K/uL [place] # (Auto) 0.72 H (0.11-0.59) K/uL Eos # (Auto) 0.34 (0-0.5) K/uL Baso # (Auto) 0.06 (0-0.2) K/uL Immature Gran # (Auto) 0.06 H (0.00-0.02) K/uL Sodium 139 (136-145) mmol/L Potassium 4.1 (3.5-5.1) mmol/L Chloride 108 H (98-107) mmol/L Carbon Dioxide 24 (21-32) mmol/L Anion Gap 7.0 (3-11) BUN 11 (7-18) mg/dl Creatinine 0.84 (0.6-1.2) mg/dl Est Cr Clr Drug Dosing 69.6 ml/min Est GFR ( Amer) 83.9 ml/min Est GFR (Non-Af Amer) 72.4 ml/min BUN/Creatinine Ratio 12.7 (10-20) Glucose 127 H (70-99) mg/dl Calcium 9.5 (8.5-10.1) mg/dl COVID-19 Eval Order Covid19 at [facility] SARS-CoV-2 (PCR) (Negative) 01/19/21 Range/Units 19:12 WBC (4.8-10.8) K/uL RBC (4.2-5.4) M/uL Hgb (12.0-16.0) g/dL Hct (37-47) % MCV (80-100) fL MCH (25-34) pg MCHC (32-36) g/dL RDW Std Deviation (36.4-46.3) fL RDW Coeff of Brigid (11.5-14.5) % Plt Count (130-400) K/uL MPV (7.4-10.4) fL Immature Gran % (Auto) % Neut % (Auto) % Lymph % (Auto) % [place] % (Auto) % Eos % (Auto) % Baso % (Auto) % Neut # (Auto) (1.4-6.5) K/uL Lymph # (Auto) (1.2-3.4) K/uL [place] # (Auto) (0.11-0.59) K/uL Eos # (Auto) (0-0.5) K/uL Baso # (Auto) (0-0.2) K/uL Immature Gran # (Auto) (0.00-0.02) K/uL Sodium (136-145) mmol/L Potassium (3.5-5.1) mmol/L Chloride (98-107) mmol/L Carbon Dioxide (21-32) mmol/L Anion Gap (3-11) BUN (7-18) mg/dl Creatinine (0.6-1.2) mg/dl Est Cr Clr Drug Dosing ml/min Est GFR ( Amer) ml/min Est GFR (Non-Af Amer) ml/min BUN/Creatinine Ratio (10-20) Glucose (70-99) mg/dl Calcium (8.5-10.1) mg/dl COVID-19 Eval Order SARS-CoV-2 (PCR) NEGATIVE (Negative) Imaging Data Attestation: I personally reviewed and interpreted this imaging study as follows: Radiologist's Impression: Wrist X-Ray 01/19/21 00:00 FL wrist LT 2V CLINICAL HISTORY: ORIF LEFT WRIST COMPARISON STUDY: Left wrist and left forearm radiographs January 19, 2021. FLUOROSCOPY TIME: 12 seconds. FLUOROSCOPIC IMAGES: 3 FINDINGS: Fluoroscopy was provided during internal fixation of the distal left radial fracture with plate and screws. Fracture alignment has significantly i mproved and appears anatomic. Hardware is intact. There are no unexpected radiopaque foreign bodies. IMPRESSION: Fluoroscopy provided during internal fixation of the distal left radial fracture. ACT 112: Negative or not required by law. Electronically signed by: Milton Alonzo M.D. 01/20/2021 9:44 AM ECG Data Additional Comments: normal sinus rhythm with a first-degree AV block. Multiple PVCs noted. QRS widening noted. No ST elevation or depression. QTc 473 MS When compared to prior EKG from June 2020, multiple PVCs now noted. No ot her changes noted Blood Pressure Blood Pressure Findings: Elevated blood pressure Blood Pressure Disposition: elevated BP felt to be situational MDM Narrative Differential diagnosis: Contusion, sprain, fracture, dislocation, neurovascular compromise among others This patient is a 65-year-old female who presents to the emergency department after a wrist injury. On exam, she did have a noted deformity. She was neurovascularly intact. Imaging confirms a significantly displaced distal radius fracture. Orthopedics was consulted. Surgical intervention was recommended. The patient's pain was well controlled with morphine in the emergency department. She remained stable and was transferred to the OR for definitive care. Impression & Plan Distal radial fracture Discharge Plan Visit Data Chief Complaint: Wrist Pain Stated Complaint: LEFT WRIST INJURY ED Provider: Froylan Christianson ED Midlevel Provider: Lizette Pina Discharge Problem: Distal radial fracture Patient Disposition: Admitted As Inpatient Discharge Instructions Interventions: ED Discharge Assessment Last Done: 01/19/21 20:25
--- NOTE | 2021-01-19 20:34 | Anesthesiology Consultation ---
Date of Service January 19, 2021 Assessment & Plan (1) Encounter for pre-operative examination: Chart Review Chart Review: Acceptable Risk for Surgery and Patient NOT seen in Pre Admission Testing Consults Requested none ASA [id number] Proposed Anesthesia Anesthesia Type: General Risk / Benefits Reviewed With: PT / POA / Parent / Guardian, Accepts Plan and Informed Consent Obtained Additional Notes Pt not appropriately NPO due to fracture occurring within 8 hours of eating a full meal. Surgeon declaring case an emergency and will proceed with planned RSI. History Surgery Operation Date: 01/19/21 21:15 Proposed Procedures p Open Reduction Internal Fixation distal radius fracture(Left) - Brian joyner MD Height/Weight Height: 5 ft 7 in Weight: 75 kg Allergies Allergy/AdvReac Type Severity Reaction Status Date / Time Sulfa (Sulfonamide Allergy Unknown HIVES Verified 06/24/20 20:09 Antibiotics) Medications Home Medications Medication Instructions Recorded Confirmed Last Taken diltiazem HCl 180 mg 180 mg PO QAM 10/31/18 06/24/20 06/06/19 08:00 capsule,extended release 24 hr (Cardizem CD) fluoxetine 40 mg capsule 40 mg PO QAM 10/31/18 06/24/20 06/06/19 08:00 lorazepam 1 mg tablet 1 mg PO Q8H PRN 10/31/18 06/24/20 06/06/19 22:00 primidone 50 mg tablet 75 mg PO TID 10/31/18 06/24/20 06/06/19 21:00 propranolol 20 mg tablet 20 mg PO TID 10/31/18 06/24/20 06/06/19 21:00 bupropion HCl 100 mg tablet,12 hr 100 mg PO QPM 06/24/20 06/24/20 Unknown sustained-release (Wellbutrin SR) bupropion HCl 100 mg tablet,12 hr 200 mg PO QAM 06/24/20 06/24/20 Unknown sustained-release (Wellbutrin SR) aspirin 81 mg tablet,delayed 81 mg PO QAM #30 tab 06/26/20 Unknown release lisinopril 2.5 mg tablet 2.5 mg PO HS #30 tab 06/26/20 Unknown amoxicillin 500 mg tablet 2,000 mg PO ONCE #4 tab 12/02/20 Unknown Past Medical History Medical History Anxiety Depression Hx of left bundle branch block Hypertension Mitral valve prolapse determined by imaging 05/2018 echo, posterior leaflet Osteoarthritis Parkinsonism HEAD AND HANDS Right knee DJD Past Family History Family History Father FHx: myocardial infarction, Onset Age: 73 Other No family history of adverse response to anesthesia Past Surgical History Surgical History History of cataract surgery bilateral History of cholecystectomy History of colonoscopy History of dilatation and curettage History of total knee replacement LEFT Social History Smoking Status: Never smoker Hx Alcohol Use: No Hx Substance Use: No substance use type: does not use Physical Exam Vital Signs Last Vital Signs Temp 36.8 C 01/19/21 17:36 Pulse 68 01/19/21 20:25 Resp 18 01/19/21 20:25 BP 137/93 01/19/21 20:25 Pulse Ox 97 01/19/21 20:25 Testing Laboratory Results 01/19/21 19:10 01/19/21 19:10 Electrocardiogram Date: 01/19/21 Findings: + NSR @ (77) Sinus rhythm with 1st degree A-V block with frequent Premature ventricular complexes, Left axis deviation, Left ventricular hypertrophy with QRS widening and repolarization abnormality, Possible Lateral infarct (cited on or before 24-JUN-2020), When compared with ECG of 24-JUN-2020 17:48, Premature ventricular complexes are now Present GA interval has increased Criteria for Inferior in farct are no longer Present, Questionable change in initial forces of Lateral leads
[2021-01-19 20:43] LABS: Basophils # (auto) 0.06 K/uL (0-0.2); Basophils % (auto) 0.5 %; Eosinophils # (auto) 0.34 K/uL (0-0.5); Hematocrit (blood only) 42.3 % (37-47); Hemoglobin 14.1 g/dL (12.0-16.0); Immature Granulocytes # (auto) 0.06 K/uL (0.00-0.02); Immature Granulocytes % (auto) 0.5 %; Lymphocytes # (auto) 2.03 K/uL (1.2-3.4); Lymphocytes % (auto) 17.7 %; Mean Corpuscular Hemoglobin 32.6 pg (25-34); Mean Corpuscular Hgb Conc 33.3 g/dL (32-36); Mean Corpuscular Volume 97.9 fL (80-100); Mean Platelet Volume 10.7 fL (7.4-10.4); Monocytes # (auto) 0.72 K/uL (0.11-0.59); Monocytes % (auto) 6.3 %; Neutrophils # (auto) 8.25 K/uL (1.4-6.5); Platelet Count 264 K/uL (130-400); RDW Coefficient of Variation 12.4 % (11.5-14.5); RDW Standard Deviation 44.4 fL (36.4-46.3); Red Blood Count 4.32 M/uL (4.2-5.4); White Blood Count 11.46 K/uL (4.8-10.8)
[2021-01-19] MEDS ORDERED: fentaNYL citrate 100 MCG/2 ML VIAL ONE (20:47)
[2021-01-19 20:49] LABS: BUN Creatinine Ratio 12.7 (10-20); Calcium 9.5 mg/dl (8.5-10.1); Creatinine Clr Calc Pharmacy 69.6 ml/min; Est GFR (African American) 83.9 ml/min; Est GFR (Non-African American) 72.4 ml/min; Potassium 4.1 mmol/L (3.5-5.1)
--- NOTE | 2021-01-19 20:51 | Orthopedic Consultation ---
Date of Consultation January 19, 2021 Assessment & Plan (1) Intra-articular fracture of distal end of left radius with volar angulation: Discussed the diagnosis with the patient. Surgery is the recommended treatment as this is an unstable pattern injury. Risks and benefits of surgery, alternatives to surgery, and expected outcomes were discussed. After reviewing all these patient elected to proceed with surgery. All questions were answered. Informed consent was signed. Patient had a Covid test in the emergency room which was negative. She is now more than 8 hours n.p.o. We will proceed to the operating room this evening for open reduction internal fixation left distal radius fracture. Plan on keeping her overnight in the hospital for pain control and monitoring. History of Present Illness Reason for Consultation: Left distal radius fracture History of Present Illness This patient is a 65-year-old female who accidentally tripped walking her dog earlier today. She fell backward onto her outstretched left wrist. Immediate onset of pain and deformity. She presented to the emergency room where x-rays were done. This showed a distal radius fracture with apex dorsal angulation. Patient was seen and examined in the emergency room. The pain is described as excruciating and worse with any movement. She has not taken anything for pain. She denies any other injuries. She denies any numbness or tingling into her fingers. She is right-hand dominant. Her last meal today was at noon. Allergies Allergy/AdvReac Type Severity Reaction Status Date / Time Sulfa (Sulfonamide Allergy Unknown HIVES Verified 06/24/20 20:09 Antibiotics) Home Medications Medication Instructions Recorded Confirmed Type diltiazem HCl 180 mg 180 mg PO QAM 10/31/18 06/24/20 History capsule,extended release 24 hr (Cardizem CD) fluoxetine 40 mg capsule 40 mg PO QAM 10/31/18 06/24/20 History lorazepam 1 mg tablet 1 mg PO Q8H PRN 10/31/18 06/24/20 History primidone 50 mg tablet 75 mg PO TID 10/31/18 06/24/20 History propranolol 20 mg tablet 20 mg PO TID 10/31/18 06/24/20 History bupropion HCl 100 mg tablet,12 hr 100 mg PO QPM 06/24/20 06/24/20 History sustained-release (Wellbutrin SR) bupropion HCl 100 mg tablet,12 hr 200 mg PO QAM 06/24/20 06/24/20 History sustained-release (Wellbutrin SR) aspirin 81 mg tablet,delayed 81 mg PO QAM #30 tab 06/26/20 Rx release lisinopril 2.5 mg tablet 2.5 mg PO HS #30 tab 06/26/20 Rx amoxicillin 500 mg tablet 2,000 mg PO ONCE #4 tab 12/02/20 Rx Patient History Medical History Anxiety Depression Hx of left bundle branch block Hypertension Mitral valve prolapse determined by imaging 05/2018 echo, posterior leaflet Osteoarthritis Parkinsonism HEAD AND HANDS Right knee DJD Surgical History History of cataract surgery bilateral History of cholecystectomy History of colonoscopy History of dilatation and curettage History of total knee replacement LEFT Family History Father FHx: myocardial infarction, Onset Age: 73 Other No family history of adverse response to anesthesia Social History Smoking Status: Never smoker Second Hand Exposure: Yes (daughter smokes in the home); Hx Alcohol Use: No Hx Substance Use: No Preferred Language: Tanzanian Communication Ability: Effective Resourcing Advisor Required: No Beliefs That Will Affect Care: None Current Living Situation: Family Current Living Situation Comment: daughter Feels Safe at Home: Yes Assistive Devices: None Physical Exam Physical Exam: Very pleasant female, alert and oriented x3 in no acute distress. Neurologic exam reveals a tremor in her bilateral hands. Musculoskeletal exam of the left upper extremity reveals no tenderness over the elbow or shoulder. She does have deformity of the wrist with tenderness over the distal radius swelling and no skin lesions. Intact EPL FPL and interossei function. Sensory intact to light touch median ulnar and radial nerve distributions. Fingers are warm and well-perfused. Results & Data ([facility]) Vital Signs (Past 12 Hours) Vital Signs Temp Pulse Pulse Resp BP BP Pulse Ox 01/19/21 20:25 68 18 137/93 97 01/19/21 19:54 73 18 160/83 H 96 01/19/21 19:16 83 18 143/84 H 95 01/19/21 17:36 36.8 C 96 H 20 131/74 Diagnostic Findings X-rays in the emergency room demonstrate an intra-articular fracture of the distal radius with volar displacement of the distal fragment and apex dorsal angulation. This is an unstable pattern injury.
[2021-01-19] MEDS ORDERED: BUPIVACAINE 0.5 % 5 MG/1 ML MPF 30ML VIAL ONE (21:26)
[2021-01-19] MEDS ORDERED: ceFAZolin 2000MG 2,000 MG/15 ML SYR IV ONE (22:02)
[2021-01-19] MEDS ORDERED: LIDOCAINE 2% 2 ML VIAL/AMP(20MG/ML) INFIL ONE (22:10)
[2021-01-19] MEDS ORDERED: ONDANSETRON INJ 2 MG/ML 2 ML VIAL ONE (22:10)
[2021-01-19] MEDS ORDERED: DEXAMETHASONE SOD INJ 4 MG/ML VIAL ONE (22:10)
[2021-01-19] MEDS ORDERED: PROPOFOL IV EMULSION 10 MG/ML 20 ML VIAL IV ONE (22:10)
[2021-01-19] MEDS ORDERED: SUCCINYLCHOLINE 100MG/5ML SYR IV ONE (22:10)
[2021-01-19] MEDS ORDERED: ROCURONIUM BROMIDE 10 MG/ML 5 ML VIAL IV ONE (22:11)
[2021-01-19] MEDS ORDERED: ePHEDrine sulfate 50 MG/ML AMP IV PRN (22:42)
[2021-01-19] MEDS ORDERED: ATROPINE SULFATE 0.1 MG/ML 10ML SYR IV PRN (22:42)
[2021-01-19] MEDS ORDERED: ONDANSETRON INJ 2 MG/ML 2 ML VIAL IV PRN (22:42)
[2021-01-19] MEDS ORDERED: fentaNYL citrate 100 MCG/2 ML VIAL IV PRN (22:42)
--- NOTE | 2021-01-19 22:55 | Operative Report ---
Post Operative Report Pre & Post Diagnosis Operation Date: 01/19/21 21:15 Pre-Op Diagnosis: Intra-articular fracture of distal end of left radius with volar angulation. Post-Op Diagnosis: Intra-articular fracture of distal end of left radius with volar angulation. I identified the patient and participated in the time-out.: Yes Procedure Operation Date: 01/19/21 21:15 Actual Procedures p Open Reduction Internal Fixation distal radius fracture(Left) - Brian Keenan MD Surgeon Brian Keenan MD Hoe Runner Kacie Amezcua PA-C. No resident or fellow was available to assist. Estimated Blood Loss 25 Findings Consistent with Post-Op Diagnosis Fracture was reduced and stabilized through a volar Ilir approach using a narrow, 3-hole, titanium DVR plate Fluids 800 Specimens None Anesthesia Type General Complications none Disposition Disposition: Recovery Room Indications 65-year-old female, fell onto her outstretched left hand walking her dog earlier today. Immediate onset of pain and deformity. She presented to the emergency room where x-rays demonstrated a volarly displaced, comminuted intra-articular left distal radius fracture. Patient was seen and examined the emergency room. Surgery is recommended to reduce and stabilize the fracture as this is an unstable pattern injury. After reviewing the risks and benefits of surgery, alternatives and expected outcomes she elected to proceed. All questions were answered. Informed consent was signed. Description of Procedure Patient was identified in the preoperative holding area where her surgical site was marked. She is brought back to the main operating room where she was placed in the operating table and general anesthesia was administered. All bony prominences were padded. Perioperative antibiotics were administered. She was prepped and draped in the usual sterile fashion. Prior to incision [facility]. All in the room in agreement. We began by exsanguinating the limb with an Esmarch bandage. Tourniquet inflated 250 mmHg. An 8 cm long incision was then made overlying the FCR tendon starting at the distal wrist crease and moving proximally. I dissected down the subcutaneous tissues to the level of the fascia. Fascia was incised overlying the FCR tendon. The FCR tendon was retracted ulnarly. The floor of the FCR tendon sheath was then incised. Parona space was entered and a wheat Finley was placed. Hematoma was encountered in Parona space. This was removed with a lap sponge. Pronator quadratus was then subperiosteally elevated off the distal radius in a hockey-stick type incision, exposing the underlying fracture. Fracture was split in the sagittal plane heading into the joint. There were 2 main distal fragments volarly. By pulling longitudinal traction and a dorsally directed force through the wrist the fracture was reduced. A Biomet DVR titanium 3-hole narrow plate was then placed on the volar aspect of the distal radius. This was secured with 2 K wires. Fluoroscopy was brought in. Slight modifications were made to the plate to optimize its positioning on the radius. I then secured the plate with a 3.5 millimeter screw through the oblong hole placed in bicortical fashion. A second proximal screw was placed to further compress the plate down onto the bone given that her bone quality was poor. Once this was complete 2 distal locking screws were placed. The K wires were then removed and fluoroscopy was brought in to check the screw lengths and position of the screws. I was very happy with all of her screw lengths as well as her reduction which was anatomic. I then filled the remaining screw holes with fully threaded 2.4 mm locking screws distally. For each of these I drilled bicortically measured and subtracted 4 mm to ensure that the tip of the screw would not be prominent dorsally. A third 3.5 mm cortical screw was placed proximally. All the screws were tightened down. Our final fluoroscopic images were then obtained. Once again I was very happy with the position of our screws screw lengths and the reduction. At this point the tourniquet was let down. Meticulous hemostasis was ensured. The wound is irrigated out with copious amounts normal saline. I then began to close. The deep dermal layer was closed with interrupted 3-0 Vicryl sutures. A 3-0 Monocryl was run in the subcuticular layer. 10 cc of half percent Marcaine was injected in the subcutaneous tissues for postoperative pain control. Steri- Strips were applied followed by sterile dressing and then the patient was placed into a well-padded volar plaster slab splint with the wrist held at neutral and the MCP joints left free. Patient was then awoke from anesthesia and transferred recovery room in stable condition. Postoperative course: Patient be admitted to the hospital overnight for pain control and monitoring. We will plan on discharging her tomorrow. Perioperative antibiotics will be administered while she is an inpatient. No DVT prophylaxis is indicated for the small upper extremity joint surgery in an ambulatory patient with no personal or family history of blood clots. I attest to the content of the Intraoperative Record and any orders documented therein. Any exceptions are noted below.
--- NOTE | 2021-01-19 23:08 | Operative Report ---
Post Operative Report Pre & Post Diagnosis Operation Date: 01/19/21 21:15 Pre-Op Diagnosis: Intra-articular fracture of distal end of left radius with volar angulation. Post-Op Diagnosis: Intra-articular fracture of distal end of left radius with volar angulation. I identified the patient and participated in the time-out.: Yes Procedure Operation Date: 01/19/21 21:15 Actual Procedures p Open reduction internal fixation distal radius fracture(Left) - Brian Keenan MD Surgeon Brian Keenan MD Parcel Post Clerk Kacie Amezcua PA-C; No resident or fellow was available to assist. Estimated Blood Loss 25 Findings Consistent with Post-Op Diagnosis left distal radius fracture Specimens none Anesthesia Type General Description of Procedure Patient was taken to the operating room, placed under general anesthesia. Time out performed, prepped and draped in routine sterile fashion. She was given 2gm IV Ancef for surgical prophylaxis. I was present during the entire case, please see Dr. Keenan's operative report for further detail. I assisted with positioning, tissue retraction, fracture reduction, hardware implantation and closure. Patient was awakened and taken to the recovery room in stable condition. I attest to the content of the Intraoperative Record and any orders documented therein. Any exceptions are noted below.
--- NOTE | 2021-01-20 00:23 | Anesthesiology Progress Note ---
Date of Service January 20, 2021 Anesthesia Post Procedure Vital Signs Vital Signs: Temp Pulse Pulse Resp BP BP Pulse Ox 01/20/21 00:06 36.8 C 77 16 163/87 H 96 01/19/21 23:42 69 16 163/83 H 95 01/19/21 23:32 70 16 157/72 H 96 01/19/21 23:22 72 16 155/78 H 99 01/19/21 23:17 36.8 C 75 16 152/77 H 100 01/19/21 23:07 36.6 C 75 16 158/77 H 100 01/19/21 20:25 68 18 137/93 97 01/19/21 19:54 73 18 160/83 H 96 01/19/21 19:16 83 18 143/84 H 95 01/19/21 17:36 36.8 C 96 H 20 131/74 Pain Intensity Left Wrist: Pain Intensity: 4 Transfer of Care Handoff Completed per policy Notes Mental Status: alert / awake / arousable and participated in evaluation Patient Amnestic to Procedure: Yes Nausea / Vomiting: adequately controlled Pain: improving with treatment Airway Patency, RR, SpO2: stable & adequate BP & HR: stable & adequate Hydration State: stable & adequate Anesthetic Complications: no major complications apparent and Pt Satisfied with anesthetic care
[2021-01-20] MEDS ORDERED: SODIUM CHLORIDE 0.9% 1000ML 1,000 ML IV SCH (00:48)
[2021-01-20] MEDS ORDERED: HYDROmorphone INJ 0.5 MG/0.5 ML SYR IV PRN (00:48)
[2021-01-20] MEDS ORDERED: ONDANSETRON INJ 2 MG/ML 2 ML VIAL IV PRN (00:48)
[2021-01-20] MEDS ORDERED: bisacodyL 10 MG SUPP PR PRN (00:48)
[2021-01-20] MEDS ORDERED: diphenhydrAMINE 50 MG/ML VIAL IV PRN (00:48)
[2021-01-20] MEDS ORDERED: MAGNESIUM HYDROXIDE SUSP 30 ML UDC PO PRN (00:48)
[2021-01-20] MEDS ORDERED: NALOXONE HCL 0.4 MG/1 ML VIAL/CARP IV PRN (00:48)
[2021-01-20] MEDS: oxyCODONE HCL IR 5 MG TAB (IMMEDIATE RELEASE) PO PRN ×4 (01:51→12:25)
[2021-01-20] MEDS: ceFAZolin 1000MG 1,000 MG/7.5 ML SYR IV SCH ×2 (05:45→13:15)
[2021-01-20] MEDS ORDERED: ACETAMINOPHEN 500 MG TAB PO SCH (06:00)
[2021-01-20] MEDS ORDERED: ASPIRIN 81 MG ECTAB PO SCH (09:00)
[2021-01-20] MEDS ORDERED: dilTIAZem HCL 180 MG CAPCR PO SCH (09:00)
[2021-01-20] MEDS ORDERED: DOCUSATE SODIUM 100 MG CAP PO SCH (09:00)
[2021-01-20] MEDS ORDERED: buPROPion SR 100 MG TABCR PO SCH ×2 (09:00→21:00)
[2021-01-20] MEDS ORDERED: MULTIVITAMIN TAB PO SCH (09:00)
[2021-01-20] MEDS ORDERED: FLUoxetine HCL 20 MG CAP PO SCH (09:00)
[2021-01-20] MEDS ORDERED: PRIMIDONE 50 MG TAB PO SCH (09:00)
[2021-01-20] MEDS ORDERED: PROPRANOLOL HCL 20 MG TAB PO SCH (09:00)
--- NOTE | 2021-01-20 09:35 | Orthopedic Progress Note ---
Date of Service January 20, 2021 Assessment & Plan (1) Intra-articular fracture of distal end of left radius with volar angulation: Plan: Postop day 1-status post a reduction internal fixation left distal radius fracture with Dr. Brian Keenan. Encouraged elevation of her left hand above her heart. Ice to left wrist as tolerated for pain and swelling. Keep splint and dressings on at all times. Encouraged finger range of motion frequently throughout her day. To prevent stiffness. Pain medication as ordered for control of her pain. PT and OT today. If safe we will plan to discharge home. Plan to discharge home later today. Prescription for oxycodone were sent to her pharmacy. Findings will be discussed with Dr. Keenan. She will follow up with Dr. Keenan in 10 to 14 days for dressing change and x-rays. Discharge instructions were reviewed. All questions answered. Admission and Anticipated Discharge Date Admission Date: January 19, 2021 Subjective Patient is resting in bed, comfortable. Tolerating regular diet. Denies any chest pain, shortness of breath, numbness or tingling. States that she did have some pain through the evening last night but is much better and more controlled today. She does feel that the oxycodone is helping control her pain. She has been keeping ice on her left wrist. keeping her left hand elevated. Physical Exam Musculoskeletal: Exam of left upper extremity: Left hand is in splint. No significant edema of her fingers. Normal sensation throughout her fingers. She has full extension and flexion of her fingers at the DIP, PIP and MCP joints. Full range of motion of her elbow and shoulder. Hernandez bandage removed from her splint today as she felt that things were a little snug. Dressing was loosened and reapplied. The splint was not removed. There is some light bloody drainage on the dressings noticeable. Not saturated. Results & Data ([facility]) Vital Signs (Past 12 Hours) Vital Signs Temp Pulse Resp BP Pulse Ox 01/20/21 07:40 36.6 C 77 16 132/81 94 01/20/21 03:30 36.6 C 75 20 123/78 94 01/20/21 02:42 36.6 C 58 L 18 146/79 H 96 01/20/21 01:25 36.4 C L 86 18 142/78 H 97 01/20/21 00:55 36.6 C 91 H 18 141/73 H 96 01/20/21 00:35 36.6 C 75 17 152/86 H 94 01/20/21 00:06 36.8 C 77 16 163/87 H 96 01/19/21 23:42 69 16 163/83 H 95 01/19/21 23:32 70 16 157/72 H 96 01/19/21 23:22 72 16 155/78 H 99 01/19/21 23:17 36.8 C 75 16 152/77 H 100 01/19/21 23:07 36.6 C 75 16 158/77 H 100 Laboratory Results 01/19/21 01/19/21 01/19/21 Range/Units 19:12 19:12 19:10 WBC (4.8-10.8) K/uL RBC (4.2-5.4) M/uL Hgb (12.0-16.0) g/dL Hct (37-47) % MCV (80-100) fL MCH (25-34) pg MCHC (32-36) g/dL RDW Std Deviation (36.4-46.3) fL RDW Coeff of Brigid (11.5-14.5) % Plt Count (130-400) K/uL MPV (7.4-10.4) fL Immature Gran % (Auto) % Neut % (Auto) % Lymph % (Auto) % Burt % (Auto) % Eos % (Auto) % Baso % (Auto) % Neut # (Auto) (1.4-6.5) K/uL Lymph # (Auto) (1.2-3.4) K/uL Burt # (Auto) (0.11-0.59) K/uL Eos # (Auto) (0-0.5) K/uL Baso # (Auto) (0-0.2) K/uL Immature Gran # (Auto) (0.00-0.02) K/uL Sodium 139 (136-145) mmol/L Potassium 4.1 (3.5-5.1) mmol/L Chloride 108 H (98-107) mmol/L Carbon Dioxide 24 (21-32) mmol/L Anion Gap 7.0 (3-11) BUN 11 (7-18) mg/dl Creatinine 0.84 (0.6-1.2) mg/dl Est Cr Clr Drug Dosing 69.6 ml/min Est GFR ( Amer) 83.9 ml/min Est GFR (Non-Af Amer) 72.4 ml/min BUN/Creatinine Ratio 12.7 (10-20) Glucose 127 H (70-99) mg/dl Calcium 9.5 (8.5-10.1) mg/dl COVID-19 Eval Order Covid19 at [facility] SARS-CoV-2 (PCR) NEGATIVE (Negative) 01/19/21 Range/Units 19:10 WBC 11.46 H (4.8-10.8) K/uL RBC 4.32 (4.2-5.4) M/uL Hgb 14.1 (12.0-16.0) g/dL Hct 42.3 (37-47) % MCV 97.9 (80-100) fL MCH 32.6 (25-34) pg MCHC 33.3 (32-36) g/dL RDW Std Deviation 44.4 (36.4-46.3) fL RDW Coeff of Brigid 12.4 (11.5-14.5) % Plt Count 264 (130-400) K/uL MPV 10.7 H (7.4-10.4) fL Immature Gran % (Auto) 0.5 % Neut % (Auto) 72.0 % Lymph % (Auto) 17.7 % Burt % (Auto) 6.3 % Eos % (Auto) 3.0 % Baso % (Auto) 0.5 % Neut # (Auto) 8.25 H (1.4-6.5) K/uL Lymph # (Auto) 2.03 (1.2-3.4) K/uL Burt # (Auto) 0.72 H (0.11-0.59) K/uL Eos # (Auto) 0.34 (0-0.5) K/uL Baso # (Auto) 0.06 (0-0.2) K/uL Immature Gran # (Auto) 0.06 H (0.00-0.02) K/uL Sodium (136-145) mmol/L Potassium (3.5-5.1) mmol/L Chloride (98-107) mmol/L Carbon Dioxide (21-32) mmol/L Anion Gap (3-11) BUN (7-18) mg/dl Creatinine (0.6-1.2) mg/dl Est Cr Clr Drug Dosing ml/min Est GFR ( Amer) ml/min Est GFR (Non-Af Amer) ml/min BUN/Creatinine Ratio (10-20) Glucose (70-99) mg/dl Calcium (8.5-10.1) mg/dl COVID-19 Eval Order SARS-CoV-2 (PCR) (Negative)
--- NOTE | 2021-01-20 09:38 | Discharge Summary ---
Date of Service January 20, 2021 Discharge Data Procedures Performed Operation Date: 01/19/21 21:15 Actual Procedures p Open reduction internal fixation distal radius fracture(Left) - Brian Keenan MD Hospital Course (1) Intra-articular fracture of distal end of left radius with volar angulation: Patient was placed in observation at [facility] after undergoing an open reduction internal fixation of her left distal radius fracture by Dr. Brian Keenan on January 19, 2021. She injured her left wrist yesterday and presented to the emergency room where she had x-rays completed. She was found to have an angulated displaced intra-articular radius fracture. Orthopedic consultation was obtained in the emergency room and surgical intervention was recommended. She does agree to proceed with surgery. She was made n.p.o. Her surgery was performed with general anesthesia. She tolerated the procedure well without any intraoperative complications. Postoperatively she was allowed out of bed, nonweightbearing of her left wrist. She was placed in a splint and was advised to keep it on at all times. Encouraged ice and elevation to her left wrist to help with pain and swelling. Encouraged finger range of motion. A PT and OT consult was obtained to teach her finger exercises as well as do some gait training to assess safety upon discharge to home. She tolerated regular diet during her inpatient stay. Her vital signs remained stable. Her pain was controlled with IV Dilaudid, p.o. oxycodone and oral Tylenol. She was given 2 g of IV Ancef for surgical prophylaxis which was continued for 24 hours after surgery. Treatment was not indicated for DVT prophylaxis except early mobility and movement. She did not develop any postop nausea, vomiting, chest pains or shortness of breath. Postoperative day 1 her splint and dressings were loosened slightly and reapplied. Discharge instructions were reviewed with the patient. She was seen and evaluated by PT and OT and was cleared for discharge to home. She was discharged to her home in stable condition on January 20, 2021. She will follow-up with Dr. Keenan in approximately 2 weeks as scheduled.
--- NOTE | 2021-01-20 09:46 | Fluoroscopy Report ---
FL wrist LT 2V CLINICAL HISTORY: ORIF LEFT WRIST COMPARISON STUDY: Left wrist and left forearm radiographs January 19, 2021. FLUOROSCOPY TIME: 12 seconds. FLUOROSCOPIC IMAGES: 3 FINDINGS: Fluoroscopy was provided during internal fixation of the distal left radial fracture with p late and screws. Fracture alignment has significantly improved and appears anatomic. Hardware is inta ct. There are no unexpected radiopaque foreign bodies. IMPRESSION: Fluoroscopy provided during internal fixation of the distal left radial fracture. ACT 112: Negative or not required by law. Electronically signed by: Milton Alonzo M.D. 01/20/2021 9:44 AM
--- NOTE | 2021-01-20 15:27 | Electrocardiogram Report ---
Test Reason : Blood Pressure : / mmHG Vent. Rate : 077 BPM Atrial Rate : 077 BPM P-R Int : 244 ms QRS Dur : 118 ms QT Int : 418 ms P-R-T Axes : 055 -30 123 degrees QTc Int : 473 ms Sinus rhythm with 1st degree A-V block with frequent Premature ventricular complexes Left axis deviation Left ventricular hypertrophy with QRS widening and repolarization abnormality Poor R wave progression, consider anterior ND vs. lead placement vs. LVH Abnormal ECG When compared with ECG of 24-JUN-2020 17:48, Premature ventricular complexes are now Present WV interval has increased Criteria for Inferior infarct are no longer Present Questionable change in initial forces of Lateral leads Confirmed by Roshan Macias ([id number]) on 01/20/2021 3:27:12 PM Referred By: REFERRED SELF Confirmed By:Roshan Macias
[2021-01-20] MEDS ORDERED: lisinopril 2.5 MG TAB PO SCH (21:00)
[2021-01-20] MEDS ORDERED: SENNA 8.6 MG TAB PO SCH (21:00)
== END 2021-01-20 13:57 | disposition home or self-care (01) ==
LOC: ED 17:22 → 3W 20:25 → OR 20:25
DX: S52.572A Other intraarticular fracture of lower end of left radius, initial encounter for closed fracture; I25.2 Old myocardial infarction; Y93.K9 Activity, other involving animal care; W01.0XXA Fall on same level from slipping, tripping and stumbling without subsequent striking against object, initial encounter; G20 Parkinson's disease; I10 Essential (primary) hypertension

== ENCOUNTER 2023-08-04 17:46 | Observation (INO) ==
--- NOTE | 2023-08-04 18:06 | Emergency Department Note ---
History of Present Illness General Chief complaint: Chest Pain Stated complaint: HAS BRONCHITIS, SEVERE CHEST PAIN Time Seen by Provider: 08/04/23 17:49 History of Present Illness Maximum Pain Intensity: 8 68-year-old female presents emergency department for 3-day history of cough cold congestion symptoms. Patient states that she had sternal chest pain earlier today. Patient has been exposed to multiple upper respiratory tract infections dealing with a 5-year-old. Patient was seen at primary care physician's office and was diagnosed with what she states was called complicated bronchitis. Patient was started on Augmentin she has been taking that for the past 3 days. Patient stated that she had chest pain in the sternal region today that was nonradiating not associate with jaw pain arm pain back pain mid scapular pain nausea or diaphoresis. Patient denies hemoptysis or weight loss. There are no other mitigating or alleviating factors Home Medications Medication Instructions Recorded Confirmed Type amoxicillin 500 mg-potassium 1 tab PO AMHS 08/04/23 08/04/23 History clavulanate 125 mg tablet aspirin 81 mg tablet,delayed 81 mg PO Q OTHER DAY 08/04/23 08/04/23 History release atorvastatin 20 mg tablet 20 mg PO QAM 08/04/23 08/04/23 History clonazepam 1 mg tablet See Rx Instructions .Route .COMPLEX 08/04/23 08/04/23 History cyclosporine 0.05 % eye drops in a 1 drp OPB BID 08/04/23 08/04/23 History dropperette (Restasis) dicyclomine 20 mg tablet 20 mg PO BID PRN .ABD CRAMPS 08/04/23 08/04/23 History diltiazem HCl 180 mg 180 mg PO DAILY 08/04/23 08/04/23 History capsule,extended release 24 hr fluoxetine 40 mg capsule 40 mg PO QAM 08/04/23 08/04/23 History fluticasone propionate 50 2 spray intranasal QAM PRN Nasal 08/04/23 08/04/23 History mcg/actuation nasal Congestion spray,suspension lamotrigine 25 mg tablet 50 mg PO QAM 08/04/23 08/04/23 History losartan 25 mg tablet 25 mg PO DAILY 08/04/23 08/04/23 History primidone 250 mg tablet 250 mg PO BID 08/04/23 08/04/23 History propranolol 60 mg capsule,24 60 mg PO QAM 08/04/23 08/04/23 History hr,extended release vilazodone 20 mg tablet 20 mg PO QAM 08/04/23 08/04/23 History Allergies Allergy/AdvReac Type Severity Reaction Status Date / Time Sulfa (Sulfonamide Allergy Unknown HIVES Verified 08/04/23 20:06 Antibiotics) Past Med/Surg History Medical History Mitral valve prolapse determined by imaging 05/2018 echo, posterior leaflet Right knee DJD Parkinsonism HEAD AND HANDS Hx of left bundle branch block Osteoarthritis Depression Anxiety Hypertension Surgical History History of colonoscopy History of dilatation and curettage History of cataract surgery bilateral History of cholecystectomy History of total knee replacement LEFT Family History Father FHx: myocardial infarction, Onset Age: 73 Other No family history of adverse response to anesthesia Social History Smoking Status: Never smoker Second Hand Exposure: Yes (daughter smokes in the home); Do You Dip or Chew Tobacco: No; Hx Alcohol Use: No Hx Substance Use: No Preferred Language: Yi Communication Ability: Effective Quantitative Analyst Developer Required: No Beliefs That Will Affect Care: None Current Living Situation: Family Current Living Situation Comment: daughter Feels Safe at Home: Yes Assistive Devices: Cane and Walker Review of Systems A total of 10 systems reviewed and were otherwise negative Respiratory: + cough Cardiovascular: + chest pain Physical Exam Vital Signs Vital Signs - 24 hr 08/04/23 17:49 08/04/23 18:40 08/04/23 18:45 Temperature 36.5 C Temperature Source Oral Pulse Rate 72 72 Pulse Rhythm Regular Pulse Strength Normal Respiratory Rate 18 Respiratory Effort / Characteristics Non-Labored Spontaneous Non-Labored Spontaneous Respiratory Depth Normal Normal Respiratory Pattern Regular Blood Pressure 126/74 Blood Pressure Mean 91 Blood Pressure Position Sitting Pulse Oximetry 95 Oxygen Delivery Method Room Air Oxygen Flow Rate Sepsis Recent Fever Within 48 Hours No Sepsis New/Unexplained Change in Mental Status No Sepsis Action Taken by Nursing No Action Required 08/04/23 18:45 08/04/23 18:45 Temperature Temperature Source Pulse Rate Pulse Rhythm Pulse Strength Respiratory Rate Respiratory Effort / Characteristics Respiratory Depth Respiratory Pattern Blood Pressure Blood Pressure Mean Blood Pressure Position Pulse Oximetry 94 94 Oxygen Delivery Method Room Air Room Air Oxygen Flow Rate 0 Sepsis Recent Fever Within 48 Hours Sepsis New/Unexplained Change in Mental Status Sepsis Action Taken by Nursing GENERAL: Patient is awake alert in no acute distress patient is resting comfortably and showing no signs of anxiety EYES: The conjunctivae are clear. The pupils are round and reactive. EARS, NOSE, MOUTH AND THROAT: The nose is without any evidence of any deformity. Mucous membranes are moist. Tongue is midline. NECK: The neck is nontender and supple. RESPIRATORY: Normal respiratory effort is noted there is no evidence of wheezing rhonchi or rales CARDIOVASCULAR: Regular rate and rhythm noted there no murmurs rubs or gallops normal S1 normal S2. GASTROINTESTINAL: The abdomen is soft. Abdomen is nontender. BACK: No midline tenderness or or step-off noted range of motion in flexion extension as well as rotation no signs of muscle spasm noted MUSCULOSKELETAL/EXTREMITIES: There is no evidence of gross deformity full range of motion is noted in the hips and shoulders. SKIN: There is no obvious evidence of any rash. There are no petechiae, pallor or cyanosis noted. NEUROLOGIC: Patient is awake alert and oriented x3 strength is symmetric Course Reevaluation(s) Reevaluation #1: Patient is resting in no distress with no current chest pain Time: 19:50 Consultations Consultation #1: Case was discussed with the [facility] hospitalist for admission Time: 19:50 Administered Medications Discontinued Medications Aspirin (Aspirin Chew 324 Mg) 324 mg PO NOW STA Stop: 08/04/23 19:25 Last Admin: 08/04/23 20:41 Dose: 324 mg Documented By: CLIFF Medical Decision Making Medical Records Attestation: I reviewed the patient's medical records. Home Medications Current Medication List: was personally reviewed by me Laboratory Data Attestation: I reviewed the patient's lab results. Labs interpreted by me patient has an elevated white blood cell count, patient has an elevated troponin 08/04/23 18:25 08/04/23 18:25 Lab Results 08/04/23 Range/Units 18:25 WBC 12.57 H (4.8-10.8) K/ul RBC 4.13 L (4.20-5.40) M/uL Hgb 13.5 (12.0-16.0) g/dl Hct 40.8 (37.0-47.0) % MCV 98.8 (80.0-100.0) fL MCH 32.7 (25.0-34.0) pg MCHC 33.1 (32.0-36.0) g/dL RDW Std Deviation 43.6 (36.4-46.3) fL RDW Coeff of Brigid 11.9 (11.5-14.5) % Plt Count 294 (130-400) K/uL MPV 10.2 (9.4-12.4) fL Immature Gran % (Auto) 0.6 % Neut % (Auto) 65.6 % Lymph % (Auto) 20.6 % [place] % (Auto) 5.0 % Eos % (Auto) 7.2 % Baso % (Auto) 1.0 % Neut # (Auto) 8.26 H (1.40-6.50) K/uL Lymph # (Auto) 2.59 (1.20-3.40) K/uL [place] # (Auto) 0.63 H (0.11-0.59) K/uL Eos # (Auto) 0.90 H (0.00-0.50) K/uL Baso # (Auto) 0.12 (0.00-0.20) K/uL Immature Gran # (Auto) 0.07 (0.01-0.20) K/uL PT 10.6 (9.0-12.0) Seconds INR 1.0 (0.9-1.1) APTT 21 (21-31) Seconds PTT Ratio 0.7 Sodium 137 (136-145) mmol/L Potassium 4.2 (3.5-5.1) mmol/L Chloride 105 (98-107) mmol/L Carbon Dioxide 26 (21-32) mmol/L Anion Gap 6 (3-11) BUN 10 (6-23) mg/dl Creatinine 0.81 (0.6-1.2) mg/dl Est Cr Clr Drug Dosing 61.4 ml/min Est GFR ( Amer) 85.9 ml/min Est GFR (Non-Af Amer) 74.1 ml/min BUN/Creatinine Ratio 12.3 (10-20) Glucose 106 H (70-99(Fasting)) mg/dl Calcium 9.4 (8.6-10.3) mg/dl Total Bilirubin 0.3 (0.2-1.0) mg/dl AST 25 (13-39) U/L ALT 26 (7-52) U/L Alkaline Phosphatase 125 H (34-104) U/L Troponin I High Sens 36.5 H (0-14) pg/ml Total Protein 7.0 (6.0-8.3) gm/dl Albumin 4.1 (3.4-5.0) gm/dl Globulin 2.9 (2.5-4.0) gm/dl Albumin/Globulin Ratio 1.4 (0.9-2) SARS-CoV-2 (PCR) NEGATIVE (Negative) Influenza Type A (PCR) Negative (Neg) Influenza Type B (PCR) Negative (Neg) RSV (RT-PCR) Negative (Neg) Imaging Data Attestation: I personally reviewed and interpreted this imaging study as follows: My Impression: Chest x-ray interpreted by me negative for infiltrate normal mediastinum no pneumothorax no rib fractures Radiologist's Impression: Chest X-Ray 08/04/23 17:54 XR chest 1V portable CLINICAL HISTORY: Chest pain, nonspecific TECHNIQUE: Single frontal radiograph of the chest was obtained. Comparison: Comparison is made to chest radiograph 01/26/2021 FINDINGS: No lines and tubes are seen. The cardiomediastinal silhouette is normal. The lungs are clear. No evidence of pleural effusion or pneumothorax. IMPRESSION: No acute chest disease. ACT 112: Negative or not required by law. Electronically signed by: Luis Blount M.D. 08/04/2023 8:22 PM ECG Data Attestation: I personally reviewed and interpreted this ECG as follows: Additional Comments: EKG interpreted by me normal sinus rhythm rate of 73, normal intervals, normal axis, no obvious ST segment elevation or depression MDM Narrative Medical decision making differential diagnosis includes bronchitis, upper respiratory tract infection, costochondritis, pneumonia, acute coronary syndrome, musculoskeletal chest pain Plan is to check labs, EKG, chest x-ray, respiratory swab Patient's heart score is a 4 Patient has no current chest pain, patient was given aspirin Patient will be admitted for further evaluation as she has a mildly elevated troponin however nonischemic EKG Impression & Plan Chest pain, Bronchitis Discharge Plan Visit Data Chief Complaint: Chest Pain Stated Complaint: HAS BRONCHITIS, SEVERE CHEST PAIN ED Provider: Aryan Donald Discharge Problem: Chest pain, Bronchitis Patient Disposition: Admitted As Inpatient Forms Stand Alone Forms: My [facility] Prescriptions Prescriptions: No Action fluoxetine 40 mg capsule 40 mg PO QAM clonazepam 1 mg tablet See Rx Instructions .ROUTE .COMPLEX Rx Instructions: Take 3/4 tab in AM & NOON. Take 1 tab @ hs fluticasone propionate 50 mcg/actuation spray,suspension 2 spray INTRANASAL QAM PRN (Reason: Nasal Congestion) amoxicillin-pot clavulanate 500-125 mg tablet 1 tab PO AMHS atorvastatin 20 mg tablet 20 mg PO QAM diltiazem HCl 180 mg capsule,extended release 24hr 180 mg PO DAILY propranolol 60 mg capsule,extended release 24 hr 60 mg PO QAM aspirin [Aspir-Low] 81 mg Tablet,Delayed Release (Dr/Ec) 81 mg PO Q OTHER DAY lamotrigine 25 mg tablet 50 mg PO QAM Rx Instructions: PATIENT ONLY TAKS 2 TABS IN QAM primidone 250 mg tablet 250 mg PO BID Rx Instructions: THIS DOSE IS STATED BY PATIENT dicyclomine 20 mg tablet 20 mg PO BID PRN (Reason: .ABD CRAMPS) losartan 25 mg tablet 25 mg PO DAILY cyclosporine [Restasis] 0.05 % dropperette 1 drp OPB BID vilazodone 20 mg tablet 20 mg PO QAM Referrals Referrals: PCP,NO [Physician] -
[2023-08-04 18:55] LABS: Basophils # (auto) 0.12 K/uL (0.00-0.20); Eosinophils % (auto) 7.2 %; Hematocrit (blood only) 40.8 % (37.0-47.0); Hemoglobin 13.5 g/dl (12.0-16.0); Immature Granulocytes # (auto) 0.07 K/uL (0.01-0.20); Immature Granulocytes % (auto) 0.6 %; Lymphocytes # (auto) 2.59 K/uL (1.20-3.40); Lymphocytes % (auto) 20.6 %; Mean Corpuscular Hemoglobin 32.7 pg (25.0-34.0); Mean Corpuscular Hgb Conc 33.1 g/dL (32.0-36.0); Mean Corpuscular Volume 98.8 fL (80.0-100.0); Mean Platelet Volume 10.2 fL (9.4-12.4); Monocytes # (auto) 0.63 K/uL (0.11-0.59); Neutrophils # (auto) 8.26 K/uL (1.40-6.50); Neutrophils % (auto) 65.6 %; Platelet Count 294 K/uL (130-400); RDW Coefficient of Variation 11.9 % (11.5-14.5); RDW Standard Deviation 43.6 fL (36.4-46.3); Red Blood Count 4.13 M/uL (4.20-5.40); White Blood Count 12.57 K/ul (4.8-10.8)
[2023-08-04 19:17] LABS: Albumin Globulin Ratio 1.4 (0.9-2); Albumin Level 4.1 gm/dl (3.4-5.0); BUN Creatinine Ratio 12.3 (10-20); Bilirubin,Total 0.3 mg/dl (0.2-1.0); Calcium 9.4 mg/dl (8.6-10.3); Creatinine Clr Calc Pharmacy 61.4 ml/min; Est GFR (African American) 85.9 ml/min; Est GFR (Non-African American) 74.1 ml/min; Globulin 2.9 gm/dl (2.5-4.0); Potassium 4.2 mmol/L (3.5-5.1)
[2023-08-04 19:23] LABS: Troponin I High Sensitivity 36.5 pg/ml (0-14)
[2023-08-04 19:27] LABS: Partial Thromboplastin Ratio 0.7; Partial Thromboplastin Time 21 Seconds (21-31); Prothrombin Time 10.6 Seconds (9.0-12.0)
[2023-08-04 19:29] LABS: Influenza A virus by PCR Negative (Neg); Influenza B virus by PCR Negative (Neg); RSV by PCR Negative (Neg); SARS CoV2 RNA(COVID-19) Ceph NEGATIVE (Negative)
--- NOTE | 2023-08-04 20:24 | XRay Report ---
XR chest 1V portable CLINICAL HISTORY: Chest pain, nonspecific TECHNIQUE: Single frontal radiograph of the chest was obtained. Comparison: Comparison is made to chest radiograph 01/26/2021 FINDINGS: No lines and tubes are seen. The cardiomediastinal silhouette is normal. The lungs are clear. No evid ence of pleural effusion or pneumothorax. IMPRESSION: No acute chest disease. ACT 112: Negative or not required by law. Electronically signed by: Luis Blount M.D. 08/04/2023 8:22 PM
[2023-08-04] MEDS: ASPIRIN CHEW 324 MG PO STA (20:41)
[2023-08-04] MEDS: ACETAMINOPHEN 500 MG TAB PO STA (22:17)
--- NOTE | 2023-08-04 23:33 | History & Physical Report ---
Date of Service August 04, 2023 Assessment & Plan (1) Chest pain: Plan: 68-year-old female with past medical history significant for diabetes, allergic rhinitis, hypertension, GERD, osteoporosis, migraines, tremor, major depression, history of mitral valve prolapse presents with chest pain. Patient states she was in the library with her grandkid when she suddenly had 7 /10 burning chest pain in the middle of the chest with no radiation. She thinks she might of felt dizzy and short of breath during the episode. She dropped her granddaughter and came to ER. The pain lasted for 3 hours. Currently pain is gone. Resting comfortably hemodynamic stable. She recently diagnosed with bronchitis and taking Augmentin. But last 2 days she has no cough. Denies any fevers. She has migraines and currently has a headache. Denies any blurred visions,no eara maria luisa. No runny nose. No sore throat. Appetite is okay. No nausea or nausea. No abdominal pain. Normal bowel and bladder movements. Hemodynamics are okay. Chest pain Troponin elevated 36 and repeat is 38 Currently chest pain resolved EKG no acute findings Will follow serial cardiac enzymes and echo and repeat EKG Will keep her n.p.o. Med/telemetry Consult cardiology in a.m. for further recommendation. Diabetes Not on meds Sliding scale Will follow HbA1c levels Hypertension On losartan, diltiazem and propranolol Will monitor Tremors On primidone and propranolol Depression On fluoxetine, Lamictal and vilazodone Migraines On propranolol Hyperlipidemia On statin History of mitral valve prolapse Will follow echo DVT prophylaxis SCDs Disposition Med/telemetry Full code History of Present Illness Chief Complaint: Chest pain Primary Care Provider: Vlad Grant MD 68-year-old female with past medical history significant for diabetes, allergic rhinitis, hypertension, GERD, osteoporosis, migraines, tremor, major depression, history of mitral valve prolapse presents with chest pain. Patient states she was in the library with her grandkid when she suddenly had 7 /10 burning chest pain in the middle of the chest with no radiation. She thinks she might of felt dizzy and short of breath during the episode. She dropped her granddaughter and came to ER. The pain lasted for 3 hours. Currently pain is gone. Resting comfortably hemodynamic stable. She recently diagnosed with bronchitis and taking Augmentin. But last 2 days she has no cough. Denies any fevers. She has migraines and currently has a headache. Denies any blurred visions,no earache. No runny nose. No sore throat. Appetite is okay. No nausea or nausea. No abdominal pain. Normal bowel and bladder movements. Hemodynamics are okay. Past medical history. As mentioned above Past surgical history. Exploration of abdomen. Laparoscopic cholecystectomy. Tonsillectomy and adenoidectomy. Social history. No smoking. No alcohol use. No drug use. Family history. Mother had allergies. Father had diabetes. [place]. Parkinsonism. Sister has hypertension. Paternal grandfather had tremor. Maternal grandfather had pacemaker. Maternal grandmother had arthritis. Allergies Allergy/AdvReac Type Severity Reaction Status Date / Time Sulfa (Sulfonamide Allergy Unknown HIVES Verified 08/04/23 20:06 Antibiotics) Home Medications Medication Instructions Recorded Confirmed Type amoxicillin 500 mg-potassium 1 tab PO AMHS 08/04/23 08/04/23 History clavulanate 125 mg tablet aspirin 81 mg tablet,delayed 81 mg PO Q OTHER DAY 08/04/23 08/04/23 History release atorvastatin 20 mg tablet 20 mg PO QAM 08/04/23 08/04/23 History clonazepam 1 mg tablet See Rx Instructions .Route .COMPLEX 08/04/23 08/04/23 History cyclosporine 0.05 % eye drops in a 1 drp OPB BID 08/04/23 08/04/23 History dropperette (Restasis) dicyclomine 20 mg tablet 20 mg PO BID PRN .ABD CRAMPS 08/04/23 08/04/23 History diltiazem HCl 180 mg 180 mg PO DAILY 08/04/23 08/04/23 History capsule,extended release 24 hr fluoxetine 40 mg capsule 40 mg PO QAM 08/04/23 08/04/23 History fluticasone propionate 50 2 spray intranasal QAM PRN Nasal 08/04/23 08/04/23 History mcg/actuation nasal Congestion spray,suspension lamotrigine 25 mg tablet 50 mg PO QAM 08/04/23 08/04/23 History losartan 25 mg tablet 25 mg PO DAILY 08/04/23 08/04/23 History primidone 250 mg tablet 250 mg PO BID 08/04/23 08/04/23 History propranolol 60 mg capsule,24 60 mg PO QAM 08/04/23 08/04/23 History hr,extended release vilazodone 20 mg tablet 20 mg PO QAM 08/04/23 08/04/23 History Past Med/Surg History Medical History Mitral valve prolapse determined by imaging 05/2018 echo, posterior leaflet Right knee DJD Parkinsonism HEAD AND HANDS Hx of left bundle branch block Osteoarthritis Depression Anxiety Hypertension Surgical History History of colonoscopy History of dilatation and curettage History of cataract surgery bilateral History of cholecystectomy History of total knee replacement LEFT Family History Father FHx: myocardial infarction, Onset Age: 73 Other No family history of adverse response to anesthesia Social History Smoking Status: Never smoker Second Hand Exposure: Yes (daughter smokes in the home); Do You Dip or Chew Tobacco: No; Hx Alcohol Use: No Hx Substance Use: No Preferred Language: Kazakh Communication Ability: Effective Harness And Bag Inspector Required: No Beliefs That Will Affect Care: None Current Living Situation: Family Current Living Situation Comment: daughter Feels Safe at Home: Yes Safety Concerns: Feels Safe At This Time Assistive Devices: Cane and Walker Review of Systems Review of Systems: All systems reviewed & are unremarkable except as noted in HPI & below Physical Exam Physical Exam: General- Not in distress Head- atraumatic Eyes- PERRL. ENT- oropharynx clear Neck- supple, no JVD. Lungs- clear to auscultation, no wheezing or crackles. Heart- regular rhythm; no murmur, no gallop. Abdomen- normal bowel sounds, soft, nontender, no distension. Extremities- no pretibial edema, no erythema seen. Neuro- alert, oriented PERRL,no facial palsy; no dysarthria; moves extremities. Results & Data Results & Data Vital Signs (Past 12 Hours) Vital Signs Temp Pulse Resp BP Pulse Ox O2 Del Method O2 Flow Rate 08/04/23 22:11 60 08/04/23 22:01 126/68 08/04/23 22:01 62 18 97 Room Air 08/04/23 22:00 96 08/04/23 21:30 97 08/04/23 21:00 97 08/04/23 20:30 60 18 97 08/04/23 20:30 125/68 08/04/23 20:00 123/61 08/04/23 20:00 60 22 97 08/04/23 19:30 119/65 08/04/23 19:30 59 L 14 95 08/04/23 19:00 120/68 08/04/23 19:00 66 23 98 08/04/23 18:45 94 Room Air 08/04/23 18:45 94 Room Air 0 08/04/23 18:40 72 08/04/23 18:30 132/74 08/04/23 18:30 76 15 96 08/04/23 18:27 72 12 97 08/04/23 18:26 122/71 08/04/23 17:49 36.5 C 72 18 126/74 95 Room Air Diagnostic Findings Laboratory Results WBC 12.57 K/ul (4.8-10.8) H 08/04/23 18:25 RBC 4.13 M/uL (4.20-5.40) L 08/04/23 18:25 Hgb 13.5 g/dl (12.0-16.0) 08/04/23 18: Hct 40.8 % (37.0-47.0) 08/04/23 18: MCV 98.8 fL (80.0-100.0) 08/04/23 18:25 MCH 32.7 pg (25.0-34.0) 08/04/23 18: MCHC 33.1 g/dL (32.0-36.0) 08/04/23 18:25 RDW Std Deviation 43.6 fL (36.4-46.3) 08/04/23 18: RDW Coeff of Brigid 11.9 % (11.5-14.5) 08/04/23 18: Plt Count 294 K/uL (130-400) 08/04/23 18:25 MPV 10.2 fL (9.4-12.4) 08/04/23 18:25 Immature Gran % (Auto) 0.6 % 08/04/23 18:25 Neut % (Auto) 65.6 % 08/04/23 18:25 Lymph % (Auto) 20.6 % 08/04/23 18:25 [place] % (Auto) 5.0 % 08/04/23 18:25 Eos % (Auto) 7.2 % 08/04/23 18:25 Baso % (Auto) 1.0 % 08/04/23 18:25 Neut # (Auto) 8.26 K/uL (1.40-6.50) H 08/04/23 18:25 Lymph # (Auto) 2.59 K/uL (1.20-3.40) 08/04/23 18:25 [place] # (Auto) 0.63 K/uL (0.11-0.59) H 08/04/23 18:25 Eos # (Auto) 0.90 K/uL (0.00-0.50) H 08/04/23 18:25 Baso # (Auto) 0.12 K/uL (0.00-0.20) 08/04/23 18:25 Immature Gran # (Auto) 0.07 K/uL (0.01-0.20) 08/04/23 18:25 PT 10.6 Seconds (9.0-12.0) 08/04/23 18:25 INR 1.0 (0.9-1.1) 08/04/23 18:25 APTT 21 Seconds (21-31) 08/04/23 18:25 PTT Ratio 0.7 08/04/23 18:25 Sodium 137 mmol/L (136-145) 08/04/23 18:25 Potassium 4.2 mmol/L (3.5-5.1) 08/04/23 18:25 Chloride 105 mmol/L (98-107) 08/04/23 18:25 Carbon Dioxide 26 mmol/L (21-32) 08/04/23 18:25 Anion Gap 6 (3-11) 08/04/23 18:25 BUN 10 mg/dl (6-23) 08/04/23 18:25 Creatinine 0.81 mg/dl (0.6-1.2) 08/04/23 18:25 Est Cr Clr Drug Dosing 61.4 ml/min 08/04/23 18:25 Est GFR ( Amer) 85.9 ml/min 08/04/23 18:25 Est GFR (Non-Af Amer) 74.1 ml/min 08/04/23 18:25 BUN/Creatinine Ratio 12.3 (10-20) 08/04/23 18:25 Glucose 106 mg/dl (70-99(Fasting)) H 08/04/23 18:25 Calcium 9.4 mg/dl (8.6-10.3) 08/04/23 18:25 Total Bilirubin 0.3 mg/dl (0.2-1.0) 08/04/23 18:25 AST 25 U/L (13-39) 08/04/23 18:25 ALT 26 U/L (7-52) 08/04/23 18:25 Alkaline Phosphatase 125 U/L (34-104) H 08/04/23 18:25 Troponin I High Sens 38.1 pg/ml (0-14) H 08/04/23 21:23 Total Protein 7.0 gm/dl (6.0-8.3) 08/04/23 18:25 Albumin 4.1 gm/dl (3.4-5.0) 08/04/23 18:25 Globulin 2.9 gm/dl (2.5-4.0) 08/04/23 18:25 Albumin/Globulin Ratio 1.4 (0.9-2) 08/04/23 18:25 SARS-CoV-2 (PCR) NEGATIVE (Negative) 08/04/23 18:25 Influenza Type A (PCR) Negative (Neg) 08/04/23 18:25 Influenza Type B (PCR) Negative (Neg) 08/04/23 18:25 RSV (RT-PCR) Negative (Neg) 08/04/23 18:25 Impressions Chest X-Ray 08/04/23 17:54 XR chest 1V portable CLINICAL HISTORY: Chest pain, nonspecific TECHNIQUE: Single frontal radiograph of the chest was obtained. Comparison: Comparison is made to chest radiograph 01/26/2021 FINDINGS: No lines and tubes are seen. The cardiomediastinal silhouette is normal. The lungs are clear. No evidence of pleural effusion or pneumothorax. IMPRESSION: No acute chest disease. ACT 112: Negative or not required by law. Electronically signed by: Luis Blount M.D. 08/04/2023 8:22 PM ECG Additional Comments: ECG. Normal sinus rhythm at rate of 73. Nonspecific ST changes Code Status & VTE Plan VTE Prophylaxis Plan VTE Prophylaxis will be ordered: Yes
[2023-08-05] MEDS ORDERED: FLUTICASONE PROPIONATE NA SPR 16 GM BTL PRN (00:26)
[2023-08-05] MEDS ORDERED: GLUCAGON FOR INJ 1 MG VIAL SQ PRN (00:26)
[2023-08-05] MEDS ORDERED: CARBOHYDRATES FOR HYPOGLYCEMIA PO PRN (00:26)
[2023-08-05] MEDS ORDERED: GLUCOSE 40% GEL 15 GM TUBE PO PRN (00:26)
[2023-08-05] MEDS ORDERED: GLUCOSE 10 TAB/TUBE PO PRN (00:26)
[2023-08-05] MEDS ORDERED: NITROGLYCERIN SL 0.4 MG/TAB TAB SL PRN (00:26)
[2023-08-05] MEDS ORDERED: DEXTROSE 50% 50 ML SYRINGE IV PRN (00:26)
[2023-08-05] MEDS ORDERED: POLYETHYLENE (MIRALAX) 17 GM PACK PO PRN (00:26)
[2023-08-05] MEDS ORDERED: ARTIFICIAL TEARS OP PRN (00:39)
[2023-08-05] MEDS: INSULIN ASPART PER UNIT CHARGE SC SCH ×2 (01:51→21:12)
[2023-08-05] MEDS: clonazePAM 1 MG TAB PO STA (02:12)
[2023-08-05 06:37] LABS: Basophils # (auto) 0.08 K/uL (0.00-0.20); Basophils % (auto) 0.9 %; Eosinophils # (auto) 0.73 K/uL (0.00-0.50); Eosinophils % (auto) 8.5 %; Hematocrit (blood only) 35.8 % (37.0-47.0); Hemoglobin 12.3 g/dl (12.0-16.0); Immature Granulocytes # (auto) 0.04 K/uL (0.01-0.20); Immature Granulocytes % (auto) 0.5 %; Lymphocytes # (auto) 2.77 K/uL (1.20-3.40); Lymphocytes % (auto) 32.3 %; Mean Corpuscular Hgb Conc 34.4 g/dL (32.0-36.0); Monocytes # (auto) 0.57 K/uL (0.11-0.59); Monocytes % (auto) 6.7 %; Neutrophils # (auto) 4.38 K/uL (1.40-6.50); Neutrophils % (auto) 51.1 %; Platelet Count 239 K/uL (130-400); RDW Standard Deviation 42.2 fL (36.4-46.3); Red Blood Count 3.73 M/uL (4.20-5.40); White Blood Count 8.57 K/ul (4.8-10.8)
[2023-08-05 06:56] LABS: BUN Creatinine Ratio 14.5 (10-20); Calcium 8.7 mg/dl (8.6-10.3); Creatinine Clr Calc Pharmacy 65.4 ml/min; Est GFR (African American) 92.8 ml/min; Magnesium 1.9 mg/dl (1.7-2.4); Potassium 3.8 mmol/L (3.5-5.1)
[2023-08-05 07:02] LABS: Troponin I High Sensitivity 35.6 pg/ml (0-14)
[2023-08-05 07:17] LABS: Estimated Average Glucose 128 mg/dl; Hemoglobin A1C 6.1 % (4.5-5.6)
--- NOTE | 2023-08-05 08:02 | Cardiology Consultation ---
Date of Consultation August 05, 2023 Assessment & Plan (1) Chest pain: (2) Troponin level elevated: (3) Bronchitis: (4) Mitral valve prolapse determined by imaging: (5) Left bundle branch block: Plan Assessment: 68 year old female with recent bronchitis on oral antibiotics pr esents with sudden onset chest pain with no other associated symptoms. Mild elevation in troponin with flat trend, but prior history of abnormal baseline EKG. Plan: 1. Chest pain 2. Troponin level elevated 3. Bronchitis -Chest pain as noted with no other associated symptoms, no aggravating or alleviating factors. Abnormal EKG with known conduction concerns in the past including by not limited to Left BBB. not cited on most current EKG. Mild elevation in troponin with question of active ischemia vs demand secondary to recent acute URI/bronchitis. -Obtain echocardiogram to assess overall structure and function, known hx of MVP -NPO for dobutamine stress echo for further evaluation of patient's symptoms, EKG and abnormal labs. 4. Mitral valve prolapse -Known history, follows closely with OP cardiology. -Will obtain echo to reassess overall structure and function, wall motion abnormality. Continue current medication therapies at this time including propranolol and Losartan. Further recommendations as appropriate pending echo and stress test. Case has been discussed with Dr. Hazel. Further recommendations regarding plan of care as per his assessment. I spent a total of 40 minutes on the date of service in preparation, delivery, documentation of the care provided to the patient excluding any time spent in the performance of separately billed services. SANTO Granados [facility] Supervising Physician Co-Signing Physician Notes Patient was seen and personally examined. Assessment and plan as outlined by advanced provider as above discussed personally. Care discussed with hospitalist 68-year-old female with mild mitral valve prolapse, conduction system disease with intermittent left bundle branch block who presented with symptoms atypical for angina. Patient asymptomatic currently. Troponin with mild elevation though without evolution and waned to suggest acute ischemia or injury. EKG without acute injury or ischemic pattern Dobutamine stress echocardiography notable for rate related left bundle branch block as in past. There is no overt ischemia by EKG or echocardiographic criteria and patient asymptomatic. LV systolic function is normal and mitral valve prolapse remains mild Impression: Atypical chest pain without overt ischemia by stress testing Recommendations: Continue usual medications Follow-up with cardiology 4 weeks Discussed symptoms and findings in detail with patient. If symptoms would recur will would proceed directly to coronary angiography for clarity given conduction abnormality History of Present Illness Reason for Consultation: Chest pain Requesting Physician: Rogelio carpenter Attending Physician: Hamzah Ayala MD History of Present Illness HPI: Patient is a 68 year old female with PMHx significant for HTN, MVP, diabetes, GERD, migraines, depression, tremor and osteoporosis that presented to the ED with complaints of chest pain. Patient states that she was feeling her usual state of health yesterday when she took her granddaughter to the local [place]. She states while there she developed a series of 3 sharp burning episodes of chest discomfort, non-radiating with no other associated symptoms. Each episode lasted less than 5 minutes, but had a total of 3 over a 20 minute period. She denies no aggravating or alleviating factors. Patient does endorse a hx of GERD, but states this pain/discomfort was very different. She endorses a recent history of bronchitis that she was placed on Augmentin for one week ago and denies any symptoms. Denies any cough for a few days prior to having her episode. She does states she is under a lot of stress with regards to her daughter and her significant other, but didn't feel it was an attributing issue as she was outside of the home at the time of the event. EKG on admission demonstrates NSR with non-specific changes in the ST segment of the anterior leads. Rate 73bpm. Troponin 36.5/38.1/35.6 Primary Documentation Nurse: Dr. Bardales/SANTO Torres Last office visit 06/10/2023 Cardiac history: 1. Posterior mitral valve prolapse with moderate MR (2-3+), stable per echo 03/2021, 05/2022, & 05/2023 2. Hypertension 3. Abnormal baseline EKG with incomplete left bundle branch block versus left ventricular hypertrophy with with QRS widening and repolarization abnormality a. Preserved LV systolic function with abnormal septal motion consistent with IVCD per most recent echo 4. Mild atherosclerotic carotid plaque 5. Dyslipidemia 6. Tremors-- follows with a motion specialist- on propranolol Allergies Allergy/AdvReac Type Severity Reaction Status Date / Time Sulfa (Sulfonamide Allergy Unknown HIVES Verified 08/04/23 20:06 Antibiotics) Home Medications Medication Instructions Recorded Confirmed Type amoxicillin 500 mg-potassium 1 tab PO AMHS 08/04/23 08/04/23 History clavulanate 125 mg tablet aspirin 81 mg tablet,delayed 81 mg PO Q OTHER DAY 08/04/23 08/04/23 History release atorvastatin 20 mg tablet 20 mg PO QAM 08/04/23 08/04/23 History clonazepam 1 mg tablet See Rx Instructions .Route .COMPLEX 08/04/23 08/04/23 History cyclosporine 0.05 % eye drops in a 1 drp OPB BID 08/04/23 08/04/23 History dropperette (Restasis) dicyclomine 20 mg tablet 20 mg PO BID PRN .ABD CRAMPS 08/04/23 08/04/23 History diltiazem HCl 180 mg 180 mg PO DAILY 08/04/23 08/04/23 History capsule,extended release 24 hr fluoxetine 40 mg capsule 40 mg PO QAM 08/04/23 08/04/23 History fluticasone propionate 50 2 spray intranasal QAM PRN Nasal 08/04/23 08/04/23 History mcg/actuation nasal Congestion spray,suspension lamotrigine 25 mg tablet 50 mg PO QAM 08/04/23 08/04/23 History losartan 25 mg tablet 25 mg PO DAILY 08/04/23 08/04/23 History primidone 250 mg tablet 250 mg PO BID 08/04/23 08/04/23 History propranolol 60 mg capsule,24 60 mg PO QAM 08/04/23 08/04/23 History hr,extended release vilazodone 20 mg tablet 20 mg PO QAM 08/04/23 08/04/23 History Patient History Medical History Mitral valve prolapse determined by imaging 05/2018 echo, posterior leaflet Right knee DJD Parkinsonism HEAD AND HANDS Hx of left bundle branch block Osteoarthritis Depression Anxiety Hypertension Surgical History History of colonoscopy History of dilatation and curettage History of cataract surgery bilateral History of cholecystectomy History of total knee replacement LEFT Family History Father FHx: myocardial infarction, Onset Age: 73 Other No family history of adverse response to anesthesia Social History Smoking Status: Never smoker Second Hand Exposure: Yes (daughter smokes in the home); Do You Dip or Chew Tobacco: No; Hx Alcohol Use: No Hx Substance Use: No Preferred Language: Occitan Communication Ability: Effective Tugger Operator Required: No Beliefs That Will Affect Care: None Current Living Situation: Family Current Living Situation Comment: daughter Feels Safe at Home: Yes Assistive Devices: Cane and Walker Review of Systems Review of Systems: All systems reviewed & are unremarkable except as noted in HPI & below Physical Exam Constitutional: WD/WN, vitals as above well developed and well nourished; no acute distress and not ill appearing Neck: normal visual inspection and trachea midline Respiratory: normal respiratory effort; no respiratory distress and no labored breathing Auscultation: + diminished lung sounds (diminished in her bilateral bases ); no crackles and no rales Cardiovascular: Rate/Rhythm: regular rate and regular rhythm Heart Sounds: normal S1, normal S2 and + murmur (2/6 systolic ) Vessels: dorsalis pedis pulses present; no JVD Skin: no rashes, warm and dry Psychiatric: A+Ox3, euthymic affect Results & Data Vital Signs (Past 12 Hours) Vital Signs Pulse Resp BP Pulse Ox Pulse Ox O2 Del Method O2 Flow Rate 08/05/23 05:30 63 18 95 08/05/23 05:30 111/67 08/05/23 05:00 119/70 08/05/23 05:00 60 17 96 08/05/23 04:30 114/64 08/05/23 04:30 60 15 95 08/05/23 04:00 57 L 15 97 08/05/23 04:00 121/90 08/05/23 03:30 87 22 90 08/05/23 03:30 118/79 08/05/23 03:00 124/68 08/05/23 03:00 63 16 93 08/05/23 02:30 56 L 14 93 08/05/23 02:30 125/72 08/05/23 02:00 128/72 08/05/23 02:00 61 17 91 08/05/23 01:34 60 12 98 Nasal Cannula 2 08/05/23 01:34 134/71 08/05/23 01:33 58 L 12 98 08/05/23 01:01 57 L 16 90 08/05/23 01:01 114/61 08/05/23 01:00 56 L 18 91 08/05/23 01:00 98 08/05/23 00:58 20 Room Air 08/05/23 00:35 61 17 95 08/05/23 00:35 73 08/05/23 00:00 105/61 08/05/23 00:00 63 12 08/04/23 23:30 108/64 08/04/23 23:30 63 19 08/04/23 23:00 127/65 08/04/23 23:00 57 L 16 08/04/23 22:31 61 16 08/04/23 22:31 122/63 08/04/23 22:30 62 15 08/04/23 22:11 60 08/04/23 22:01 126/68 08/04/23 22:01 62 18 97 Room Air 08/04/23 22:00 96 08/04/23 21:30 97 08/04/23 21:00 97 08/04/23 20:30 60 18 97 08/04/23 20:30 125/68 08/04/23 20:00 123/61 08/04/23 20:00 60 22 97 Laboratory Results Cardiac Enzymes 08/04/23 08/04/23 08/05/23 Range/Units 18:25 21:23 06:10 AST 25 (13-39) U/L Troponin I High Sens 36.5 H 38.1 H 35.6 H (0-14) pg/ml Coagulation 08/04/23 Range/Units 18:25 PT 10.6 (9.0-12.0) Seconds APTT 21 (21-31) Seconds CBC 08/04/23 08/05/23 Range/Units 18:25 06:10 WBC 12.57 H 8.57 (4.8-10.8) K/ul RBC 4.13 L 3.73 L (4.20-5.40) M/uL Hgb 13.5 12.3 (12.0-16.0) g/dl Hct 40.8 35.8 L (37.0-47.0) % Plt Count 294 239 (130-400) K/uL Neut # (Auto) 8.26 H 4.38 (1.40-6.50) K/uL Lymph # (Auto) 2.59 2.77 (1.20-3.40) K/uL [place] # (Auto) 0.63 H 0.57 (0.11-0.59) K/uL Eos # (Auto) 0.90 H 0.73 H (0.00-0.50) K/uL Baso # (Auto) 0.12 0.08 (0.00-0.20) K/uL Comprehensive Metabolic Panel 08/04/23 08/05/23 Range/Units 18:25 06:10 Sodium 137 140 (136-145) mmol/L Potassium 4.2 3.8 (3.5-5.1) mmol/L Chloride 105 110 H (98-107) mmol/L Carbon Dioxide 26 25 (21-32) mmol/L BUN 10 11 (6-23) mg/dl Creatinine 0.81 0.76 (0.6-1.2) mg/dl Glucose 106 H 103 H (70-99(Fasting)) mg/dl Calcium 9.4 8.7 (8.6-10.3) mg/dl AST 25 (13-39) U/L ALT 26 (7-52) U/L Alkaline Phosphatase 125 H (34-104) U/L Total Protein 7.0 (6.0-8.3) gm/dl Albumin 4.1 (3.4-5.0) gm/dl Intake and Output 08/04/23 08/05/23 08/05/23 22:59 06:59 14:59 Intake Total 0 / 0 Balance 0 / 0 Intake: Oral 0 / 0 Other: Weight 69.7 kg 69.7 kg Weight Measurement Method Built in [facility] Diagnostic Findings Echo 06/09/2023 (obtained from [facility]) The examination is adequate to evaluate the referral indication. The left ventricular cavity size is normal. The LV wall thickness is mildly increased (concentric). The septal motion is abnormal consistent with intrventricular conduction delay. The regional left ventricular wall motion is otherwise normal. The qualitative LV ejection fraction is 55-59% (normal). The left atrium is mildly enlarged (35-41 ml/m^2). The mitral valve leaflets thickness is moderately increased. There is mild posterior mitral leaflet prolapse. Moderate 2-3+ mitral regurgitation is present. Moderate tricuspid regurgitation is present. In comparison to prior study of June 04, 2022 degree of mitral insufficiency has increased slightly Dobutamine stress echo 05/30/2019 Interpretation Summary The examination is adequate to evaluate the referral indication. The stress echo is negative for inducible ischemia. There is mild posterior mitral leaflet prolapse. At least moderate mitral valve regurgitation is present. Based on several parameters such as the vena contracta diameter of 0.75 centimeters, more severe mitral regurgitation may be present. Consider transesophageal echocardiogram for further assessment. There is no evidence of pulmonary hypertension.
[2023-08-05] MEDS: lamoTRIgine 25 MG TAB PO SCH (08:29)
[2023-08-05] MEDS: ASPIRIN 81 MG ECTAB PO SCH (08:29)
[2023-08-05] MEDS: ATORVASTATIN 20 MG TAB PO SCH (08:29)
[2023-08-05] MEDS: FLUoxetine HCL 20 MG CAP PO SCH (08:29)
[2023-08-05] MEDS: PROPRANOLOL HCL 60 MG LA CAP PO SCH (08:29)
[2023-08-05] MEDS: dilTIAZem HCL 180 MG CAPCR PO SCH (08:29)
[2023-08-05] MEDS: PRIMIDONE 250 MG TAB PO SCH (08:29)
[2023-08-05] MEDS: DICYCLOMINE HCL 20 MG TAB PO PRN (08:30)
[2023-08-05] MEDS: LOSARTAN POTASSIUM 25 MG TAB PO SCH (08:30)
[2023-08-05] MEDS: AMOXICILLIN/CLAVULANATE 500 MG TAB PO SCH (08:30)
[2023-08-05] MEDS: clonazePAM 0.5 MG TAB PO SCH (08:33)
--- NOTE | 2023-08-05 08:34 | Hospitalist Progress Note ---
Date of Service August 05, 2023 Assessment & Plan (1) Chest pain: Plan: 68 yo F with past medical history significant for diabetes, allergic rhinitis, hypertension, GERD, osteoporosis, migraines, tremor, major depression, history of mitral valve prolapse presents with chest pain. Patient states she [place] when she suddenly had 7 /10 burning chest pain in the middle of the chest with no radiation. She thinks she might of felt dizzy and short of breath during the episode. She dropped her granddaughter and came to ER. The pain lasted for 3 hours. Currently pain is gone. Resting comfortably hemodynamic stable. She recently diagnosed with bronchitis and taking Augmentin. But last 2 days she has no cough. Denies any fevers. She has migraines and currently has a headache. Denies any blurred visions,no earache. No runny nose. No sore throat. Appetite is okay. No nausea or nausea. No abdominal pain. Normal bowel and bladder movements. Hemodynamics are okay. Chest pain Troponin elevated 36 and repeat 38 Currently chest pain resolved EKG no acute findings serial cardiac enzymes and echo and repeat EKG Trop peaked at 113 Echo - LV is normal in size. Normal LV wall thickness. Septal motion is consistent with conduction abnormality. No regional wall motion abnormalities noted. EF 50 to 55%. Grade 1 diastolic dysfunction. Aortic valve sclerosis mild, without significant aortic valvular stenosis. Mitral valve leaflets are mildly thickened with mild prolapse of the posterior mitral valve leaflet. There is mild to moderate mitral regurg. There is mild tricuspid regurg. Med/telemetry Cardiology consulted for further recommendation - pt underwent stress test - dobutamine stress echo negative for ischemia with limitations of underlying conduction abnormalities. No cardiac symptoms induced. Blood pressure and heart rate response were normal and achieved 85% age-predicted maximal heart rate. Rate related left bundle branch block observed. Follow-up with cardiology 4 weeks Discussed symptoms and findings in detail with patient. If symptoms would recur will would proceed directly to coronary angiography for clarity given conduction abnormality Diabetes Not on meds Sliding scale Current HbA1c 6.1% Hypertension On losartan, diltiazem and propranolol Will monitor Tremors On primidone and propranolol Depression On fluoxetine, Lamictal and vilazodone Migraines On propranolol Hyperlipidemia On statin History of mitral valve prolapse obtained echo, as above. Seen by cardiology DVT prophylaxis: SCDs Disposition- Med/telemetry Full code Admission and Anticipated Discharge Date Admission Date: August 04, 2023 Subjective Pt seen in follow up of chest pain Currently CP free, underwent stress test earlier today w/ cardiology Currently no shortness of breath, no dizziness, no nausea. no abd. pain. no fever, chills Review of Systems Review of Systems: All systems reviewed & are unremarkable except as noted in Subjective Physical Exam Physical Exam: General- WD/WN F in NAD Head- atraumatic Eyes- PERRL. Neck- supple, no JVD. Lungs- clear to auscultation, no wheezing or crackles. Heart- regular rhythm; no murmur Abdomen- normal bowel sounds, soft, nontender Extremities- no pretibial edema, no erythema seen. 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 Results & Data Results & Data Vital Signs (Past 12 Hours) Vital Signs Pulse Resp BP Pulse Ox Pulse Ox O2 Del Method O2 Flow Rate 08/05/23 08:05 61 08/05/23 05:30 63 18 95 08/05/23 05:30 111/67 08/05/23 05:00 119/70 08/05/23 05:00 60 17 96 08/05/23 04:30 114/64 08/05/23 04:30 60 15 95 08/05/23 04:00 57 L 15 97 08/05/23 04:00 121/90 08/05/23 03:30 87 22 90 08/05/23 03:30 118/79 08/05/23 03:00 124/68 08/05/23 03:00 63 16 93 08/05/23 02:30 56 L 14 93 08/05/23 02:30 125/72 08/05/23 02:00 128/72 08/05/23 02:00 61 17 91 08/05/23 01:34 60 12 98 Nasal Cannula 2 08/05/23 01:34 134/71 08/05/23 01:33 58 L 12 98 08/05/23 01:01 57 L 16 90 08/05/23 01:01 114/61 08/05/23 01:00 56 L 18 91 08/05/23 01:00 98 08/05/23 00:58 20 Room Air 08/05/23 00:35 61 17 95 08/05/23 00:35 73 08/05/23 00:00 105/61 08/05/23 00:00 63 12 08/04/23 23:30 108/64 08/04/23 23:30 63 19 08/04/23 23:00 127/65 08/04/23 23:00 57 L 16 08/04/23 22:31 61 16 08/04/23 22:31 122/63 08/04/23 22:30 62 15 08/04/23 22:11 60 08/04/23 22:01 126/68 08/04/23 22:01 62 18 97 Room Air 08/04/23 22:00 96 08/04/23 21:30 97 08/04/23 21:00 97 Laboratory Results 08/05/23 08/05/23 08/05/23 Range/Units 06:10 05:42 01:49 WBC 8.57 (4.8-10.8) K/ul RBC 3.73 L (4.20-5.40) M/uL Hgb 12.3 (12.0-16.0) g/dl Hct 35.8 L (37.0-47.0) % MCV 96.0 (80.0-100.0) fL MCH 33.0 (25.0-34.0) pg MCHC 34.4 (32.0-36.0) g/dL RDW Std Deviation 42.2 (36.4-46.3) fL RDW Coeff of Brigid 12.0 (11.5-14.5) % Plt Count 239 (130-400) K/uL MPV 10.0 (9.4-12.4) fL Immature Gran % (Auto) 0.5 % Neut % (Auto) 51.1 % Lymph % (Auto) 32.3 % [place] % (Auto) 6.7 % Eos % (Auto) 8.5 % Baso % (Auto) 0.9 % Neut # (Auto) 4.38 (1.40-6.50) K/uL Lymph # (Auto) 2.77 (1.20-3.40) K/uL [place] # (Auto) 0.57 (0.11-0.59) K/uL Eos # (Auto) 0.73 H (0.00-0.50) K/uL Baso # (Auto) 0.08 (0.00-0.20) K/uL Immature Gran # (Auto) 0.04 (0.01-0.20) K/uL PT (9.0-12.0) Seconds INR (0.9-1.1) APTT (21-31) Seconds PTT Ratio Sodium 140 (136-145) mmol/L Potassium 3.8 (3.5-5.1) mmol/L Chloride 110 H (98-107) mmol/L Carbon Dioxide 25 (21-32) mmol/L Anion Gap 5 (3-11) BUN 11 (6-23) mg/dl Creatinine 0.76 (0.6-1.2) mg/dl Est Cr Clr Drug Dosing 65.4 ml/min Est GFR ( Amer) 92.8 ml/min Est GFR (Non-Af Amer) 80.0 ml/min BUN/Creatinine Ratio 14.5 (10-20) Glucose 103 H (70-99(Fasting)) mg/dl POC Glucose 105 H 141 H (70-99) mg/dl Estimat Average Glucose 128 mg/dl Hemoglobin A1c 6.1 H (4.5-5.6) % Calcium 8.7 (8.6-10.3) mg/dl Magnesium 1.9 (1.7-2.4) mg/dl Total Bilirubin (0.2-1.0) mg/dl AST (13-39) U/L ALT (7-52) U/L Alkaline Phosphatase (34-104) U/L Troponin I High Sens 35.6 H (0-14) pg/ml Total Protein (6.0-8.3) gm/dl Albumin (3.4-5.0) gm/dl Globulin (2.5-4.0) gm/dl Albumin/Globulin Ratio (0.9-2) SARS-CoV-2 (PCR) (Negative) Influenza Type A (PCR) (Neg) Influenza Type B (PCR) (Neg) RSV (RT-PCR) (Neg) 08/04/23 08/04/23 Range/Units 21:23 18:25 WBC 12.57 H (4.8-10.8) K/ul RBC 4.13 L (4.20-5.40) M/uL Hgb 13.5 (12.0-16.0) g/dl Hct 40.8 (37.0-47.0) % MCV 98.8 (80.0-100.0) fL MCH 32.7 (25.0-34.0) pg MCHC 33.1 (32.0-36.0) g/dL RDW Std Deviation 43.6 (36.4-46.3) fL RDW Coeff of Brigid 11.9 (11.5-14.5) % Plt Count 294 (130-400) K/uL MPV 10.2 (9.4-12.4) fL Immature Gran % (Auto) 0.6 % Neut % (Auto) 65.6 % Lymph % (Auto) 20.6 % [place] % (Auto) 5.0 % Eos % (Auto) 7.2 % Baso % (Auto) 1.0 % Neut # (Auto) 8.26 H (1.40-6.50) K/uL Lymph # (Auto) 2.59 (1.20-3.40) K/uL [place] # (Auto) 0.63 H (0.11-0.59) K/uL Eos # (Auto) 0.90 H (0.00-0.50) K/uL Baso # (Auto) 0.12 (0.00-0.20) K/uL Immature Gran # (Auto) 0.07 (0.01-0.20) K/uL PT 10.6 (9.0-12.0) Seconds INR 1.0 (0.9-1.1) APTT 21 (21-31) Seconds PTT Ratio 0.7 Sodium 137 (136-145) mmol/L Potassium 4.2 (3.5-5.1) mmol/L Chloride 105 (98-107) mmol/L Carbon Dioxide 26 (21-32) mmol/L Anion Gap 6 (3-11) BUN 10 (6-23) mg/dl Creatinine 0.81 (0.6-1.2) mg/dl Est Cr Clr Drug Dosing 61.4 ml/min Est GFR ( Amer) 85.9 ml/min Est GFR (Non-Af Amer) 74.1 ml/min BUN/Creatinine Ratio 12.3 (10-20) Glucose 106 H (70-99(Fasting)) mg/dl POC Glucose (70-99) mg/dl Estimat Average Glucose mg/dl Hemoglobin A1c (4.5-5.6) % Calcium 9.4 (8.6-10.3) mg/dl Magnesium (1.7-2.4) mg/dl Total Bilirubin 0.3 (0.2-1.0) mg/dl AST 25 (13-39) U/L ALT 26 (7-52) U/L Alkaline Phosphatase 125 H (34-104) U/L Troponin I High Sens 38.1 H 36.5 H (0-14) pg/ml Total Protein 7.0 (6.0-8.3) gm/dl Albumin 4.1 (3.4-5.0) gm/dl Globulin 2.9 (2.5-4.0) gm/dl Albumin/Globulin Ratio 1.4 (0.9-2) SARS-CoV-2 (PCR) NEGATIVE (Negative) Influenza Type A (PCR) Negative (Neg) Influenza Type B (PCR) Negative (Neg) RSV (RT-PCR) Negative (Neg) Medications Administered Current Inpatient Medications Acetaminophen (Acetaminophen 325 Mg Tab) 650 mg PO Q4H PRN PRN Reason: Pain or Fever Stop: 09/04/23 00:25 Amoxicillin/Clavulanate Potassium (Amoxicillin/Clavulanate 500 Mg Tab) 1 tab PO BID MELINDA; Protocol Stop: 08/12/23 08:59 Artificial Tears (Artificial Tears) 1 drops OP QID PRN PRN Reason: Dryness Stop: 09/04/23 00:38 Aspirin (Aspirin 81 Mg Ectab) 81 mg PO QAM [facility] Stop: 09/04/23 08:59 Atorvastatin Calcium (Atorvastatin 20 Mg Tab) 20 mg PO QAM [facility] Stop: 09/04/23 08:59 Clonazepam (Clonazepam 1 Mg Tab) 1 mg PO HS [facility] Stop: 09/04/23 20:59 Clonazepam (Clonazepam 0.5 Mg Tab) 0.75 mg PO BID@0900,1400 [facility] Stop: 09/04/23 08:59 Dextrose (Dextrose 50% 50 Ml Syringe) 25 - 50 ml IV UD PRN; Protocol PRN Reason: Hypoglycemia Protocol Stop: 09/04/23 00:25 Dicyclomine HCl (Dicyclomine Hcl 20 Mg Tab) 20 mg PO BID PRN PRN Reason: ABDOMINAL CRAMPS Stop: 09/04/23 00:25 Diltiazem HCl (Diltiazem Hcl 180 Mg Capcr) 180 mg PO DAILY [facility] Stop: 09/04/23 08:59 Fluoxetine HCl (Fluoxetine Hcl 20 Mg Cap) 40 mg PO QAM [facility] Stop: 09/04/23 08:59 Fluticasone Propionate (Fluticasone Propionate Na Spr 16 Gm Btl) 2 sprays NA QAM PRN PRN Reason: Nasal Congestion Stop: 09/04/23 00:25 Glucagon (Glucagon For Inj 1 Mg Vial) 1 mg SQ UD PRN; Protocol PRN Reason: Hypoglycemia Protocol Stop: 09/04/23 00:25 Glucose (Glucose 10 Tab/Tube) 4 - 8 tab PO UD PRN; Protocol PRN Reason: Hypoglycemia Treatment Stop: 09/04/23 00:25 Glucose (Glucose 40% Gel 15 Gm Tube) 15 - 30 gm PO UD PRN; Protocol PRN Reason: Hypoglycemia Protocol Stop: 09/04/23 00:25 Insulin Aspart (Insulin Aspart Per Unit Charge) 0 units SC Q6 [facility] Stop: 09/04/23 00:59 Last Admin: 08/05/23 05:51 Dose: Not Given Lamotrigine (Lamotrigine 25 Mg Tab) [facility]; Protocol Stop: 09/04/23 08:59 Losartan Potassium (Losartan Potassium 25 Mg Tab) 25 mg PO DAILY [facility] Stop: 09/04/23 08:59 Miscellaneous (Vilazodone 20 Mg - Order Awaiting Action) 1 each N/A QS [facility] Stop: 09/04/23 07:59 Miscellaneous (Carbohydrates For Hypoglycemia ) 15 - 30 gm PO UD PRN PRN Reason: Hypoglycemia Protocol Stop: 09/04/23 00:25 Nitroglycerin (Nitroglycerin Sl 0.4 Mg/Tab Tab) 0.4 mg SL Q5M PRN PRN Reason: Chest Pain Stop: 09/04/23 00:25 Polyethylene Glycol (Polyethylene (Miralax) 17 Gm Pack) 17 gm PO DAILY PRN PRN Reason: Constipation Stop: 09/04/23 00:25 Primidone (Primidone 250 Mg Tab) 250 mg PO BID [facility] Stop: 09/04/23 08:59 Propranolol HCl (Propranolol Hcl 60 Mg [place]) 60 mg PO QAM [facility] Stop: 09/04/23 08:59
--- OUTSIDE RECORDS SUMMARY | 2023-08-05 11:59 | External Medical Summary | Summary of Care ---
Author Name Unknown Organization [facility] Address [address] [place] [address] Phone [phone] Care Team Providers Care Etiquette Coach Name Role Phone Vlad Grant MD Primary Care Provider [phone]- [phone] Reason for Visit * Reason Onset Date Comments Scan To Read 07/29/2023 Encounter Details Date Type Department Care Team (Late st Contact Info) Description 07/29/2023 Telephone [facility] [address] [place] [address] Vlad Grant MD [address] [place] [address] Scan To Read Allergies Active Allergy Reactions Criticality Noted Date Comments Sulfa Antibiotics 07/24/2002 documented as of this encounter (statuses as of 07/29/2023) Medications Medication Sig Dispensed Refills Start Date End Date Status Aspirin EC 81 MG Oral Tablet Delayed Release Take 1 Tablet by mouth in the morning. 0 Active lamoTRIgine 25 MG Oral Tablet (LaMICtal) Take 1 Tablet by mouth in the morning and 1 Tablet before bedtime. 0 04/17/2020 Active Dicyclomine HCl 20 MG Oral Tablet (Bentyl) Take 1 Tablet by mouth. 0 08/05/2021 Active FLUoxetine HCl 40 MG Oral Capsule Take 1 Capsule by mouth in the morning and 1 Capsule before bedtime. 34 Capsule 5 06/15/2022 Active FreeStyle [place] Lite w/Device Kit USE ONCE A DAY TO CHECK BLOOD SUGAR 0 07/01/2022 Active FreeStyle Lite Test In Vitro Strip USE ONE TEST STRIP TO TEST BLOOD SUGAR DAILY 0 06/25/2022 Active FreeStyle Lancets USE ONE LANCET TO TEST BLOOD SUGAR DAILY 0 05/01/2022 Active Vilazodone HCl 20 MG Oral Tablet (Viibryd) 0 07/24/2022 Active clonazePAM 1 MG Oral Tablet (KlonoPIN)Indicati ons:Excessive physiologic tremor Take half a tablet in the morning, half a tablet at noon, 1 tablet at bedtime. 60 Tablet 2 10/20/2022 Active Restasis 0.05 % Ophthalmic Emulsion instill 1 drop into both eyes twice a day 0 10/27/2022 Active Propranolol HCl ER 60 MG Oral Capsule Extended Release 24 Hour (Inderal LA)Indications:Ess ential tremor Take 1 Capsule by mouth in the morning. 90 Capsule 3 05/25/2023 Active Primidone 250 MG Oral Tablet (Mysoline)Indicati ons:Essential tremor Take 1 Tablet by mouth in the morning and 1 Tablet before bedtime. 180 Tablet 3 05/25/2023 Active dilTIAZem HCl ER Coated Beads 180 MG Oral Capsule Extended Release 24 Hour (Cardizem CD) Take 1 Capsule by mouth in the morning. 90 Capsule 1 06/01/2023 Active Atorvastatin Calcium 20 MG Oral Tablet (Lipitor)Indicatio ns:HTN, goal below 140/90,Dyslipidemi a, goal LDL below 70,Nonrheumatic mitral valve regurgitation,Asym ptomatic bilateral carotid artery stenosis Take 1 Tablet by mouth in the morning. 90 Tablet 3 06/10/2023 Active Losartan Potassium 25 MG Oral Tablet (Cozaar) Take 1 Tablet by mouth in the morning. 0 06/30/2023 Active Fluticasone Propionate 50 MCG/ACT Nasal Suspension (Flonase) Administer 2 Sprays into each nostril in the morning. 16 g 1 07/29/2023 Active Amoxicillin-Pot Clavulanate 500-125 MG Oral Tablet (Augmentin) Take 1 Tablet by mouth in the morning and 1 Tablet before bedtime. Do all this for 10 days. 20 Tablet 0 07/29/2023 08/08/2023 Active documented as of this encounter (statuses as of 07/29/2023) Active Problems Problem Noted Date Diagnosed Date Major depressive disorder wi th single episode, in partial remission 09/21/2022 Diabetes mellitus without complication 3 Osteoporosis without current pathological fractu re 11/16/2018 Gastroesophageal reflux disease 11/16/2018 HTN, goal below 140/90 07/01/2018 Tremor 02/09/2011 Allergic rhinitis 01/12/2003 COMMON MIGRAINE WITHOUT MENTION OF INTRACTABLE M IGRAINE Esotropia documented as of this encounter (statuses as of 07/29/2023) Resolved Problems Problem Noted Date Diagnosed Date Resolved Date Chronic kidney disease, stage 3a 09/17/2020 09/21/2022 Overview: Per CKD protocol Polyneuropathy in other dise ases classified elsewhere 07/01/2020 09/21/2022 Major depressive disorder wi th single episode, in full remission 07/01/2020 09/21/2022 Nonspecific abnormal electro cardiogram (ECG) (EKG) 09/28/2019 09/21/2022 PAIN IN LIMB, LEFT MORRISON 11/22/200712/2017 ADVANCE DIRECTIVE INFORMATION 10/08/2004 10/15/2017 Overview: given to pt Mitral valve disorder 2018 Major depressive disorder Overview: ICD-10 update of inactive term DIABETES IN PREG-UNSPEC 07/08 PRESCRIP-ORAL CONTRACEPT 12/2017 documented as of this encounter (statuses as of 07/29/2023) Immunizations Name Administration Dates Next Due COVID-19 mRNA, LNP-s, No Pre serve, 2-Dose Series (Pfizer) 07/30/2020 Seasonal Influenza, Quadriva lent, No Preserve, IM 02/11/2016 Seasonal Influenza, Split, I IV3, With Preserve, Inj 06/26/2020,03/09/2010,03/01/2008 TDAP (age 11 and older)(Adacel) 09/12/2008 Varicella Zoster Vaccine (Adult) 02/11/2016 documented as of this encounter Social History Tobacco Use Types Packs/Day Years Used Date Smoking Tobacco: Never Passive Smoke Exposure: Current Smokeless Tobacco: Never Alcohol Use Standard Drinks/Week Comments No 0 (1 standard drink = 0.6 oz pur e alcohol) PHQ-2 Answer Date Recorded PHQ-2 Score 4 04/02/2019 Sex and Gender Information Value Date Recorded Sex Assigned at Female 07/21/2019 1:24 PM EDT Gender Identity Female 07/21/2019 1:24 PM EDT Sexual Orientation Straight 07/21/2019 1: 24 PM EDT Job Start Date Occupation Industry Not on file Not on file Not on file documented as of this encounter Functional Status Functional Status Response Date of Assess ment Are you deaf or do you have serious difficulty h earing? No 12/28/2013 Are you blind or do you have serious difficulty seeing, even when wearing glasses? No 12/28/2013 Do you have serious difficul ty walking or climbing stairs? (5 years old or older) Yes 12/28/2013 Do you have difficulty dress ing or bathing? (5 years old or older) No 12/28/2013 Because of a physical, menta l, or emotional condition, do you have difficulty doing errands alone such as visiting a doctor s office or shopping? (15 years old or older) No 12/29/19 14 Cognitive Status Response Date of Assessm ent Because of a physical, menta l, or emotional condition, do you have serious difficulty concentrating, remembering, or making decisions? (5 years old or older) Yes 12/28/2013 documented as of this encounter Miscellaneous Notes * Telephone Encounter - Brian Maxwell MD - 07/29/2023 1:04 PM EDT Retinal Scan Imaging [facility] [id number] Retinal Scan Interpretation: There is no retinopathy in both eyes Diabetes Retinal Imaging Care Plan: The retinal scan results are normal - I will forward this encounter to the Ophthalmology DM Letter Pool [[id number]], they will send a normal retinal scan letter to the patient, and the patient will be seen back for a yearly scan. Brian Maxwell MD 07/29/2023 1:04 PM * Telephone Encounter - Aretha Sanches LPN - 07/29/2023 11:06 AM EDT A Diabetic Telemed Eye image was taken and requires your interpretation for Dr Golden. Please check your inbasket for image. Patient prefers to be seen at [facility] if a follow-up appointment is needed. documented in this encounter Plan of Treatment Upcoming Encounters Date Type Department Care Team (Late st Contact Info) Description 09/30/2023 3:40 PM EDT Office Visit [facility] [address] [place] [phone] Vlad Grant MD [address] [place] [address] 01/25/2024 11:20 AM EDT Office Visit Neurology [facility] [address] [place] [address] Reji Smith MD [address] [place] [address] 06/12/2024 3:00 PM EST Cardiac Studies Cardiac Studies, [facility] [address] [place] [address] Health Maintenance Due Date Last Done Comments Hepatitis C Screening 1973 COLONOSCOPY-EVERY 5 YRS AGES 18-100 09/23/2009 09/23/2004, 07/12/2000 Zoster Vaccines (2 of 3) 04/07/2016 02/11/2016 Depression Screening 03/28/2020 03/28/2019 *BISPHONATE OR OTHER ACCEPTABLE MEDICATION NEEDED FOR OSTEOPOROSIS (REFER TO SMARTSET #1146) 12/07/2021 COVID-19 Vaccine ( season) 2023 02/16/2022, 03/12/2021, 08/27/2020, Additional history exists HbA1c 03/27/2023 09/24/2022, 12/08, 07/02/2005 DXA Scan 09/09/2023 09/08/2021, 09/07, 12/09/2015 GFR 09/25/2023 09/24/2022, 01/09, 09/02/2020, Additional history exists Albumin/Creatinine Ratio 10/13/2023 10/12/2022, 01/09 Mammogram 05/20/2024 05/20/2023, 11/08, 01/15/2016, Additional history exists Diabetic Foot Exam 05/31/2024 05/31/2023 Diabetic Eye Exam 07/28/2024 07/29/2023 Lipid Panel 09/25/2027 09/24/2022, 12/08, 01/29/2021, Additional history exists DTaP,Tdap,and Td Vaccines Discontinued 09/12/2008, 12/1996 VITAMIN D LEVEL ONCE IN A LIFETIME-USE SMARTSET# [id number] Completed 04/23/2016, 12/28/2013, 08/08/2008 Pneumococcal Vaccine: 65+ Years Completed 04/20/2022, 03/12/2021 Influenza Vaccine (FLU shot) Completed 02/16/2023, 06/26/2020, 02/11/2016, Additional history exists GARDASIL-HPV IMMUNIZATION SERIES Aged Out No longer eligible based on patient's age to complete this topic Hepatitis B Aged Out No longer eligi ble based on patient's age to complete this topic MENINGOCOCCAL (MENACTRA/MENVEO) Aged Out No longer eligible based on patient's age to complete this topic documented as of this encounter Medical Devices Not on filedocumented as of this encounter Care Teams Etiquette Coach Relationship Specialty Start Date End Date Vlad Grant MD [address] [place] [address] PCP - General 02/26/00 documented as of this encounter
--- OUTSIDE RECORDS SUMMARY | 2023-08-05 11:59 | External Medical Summary ---
Author Name Unknown Address Unknown Organization [id number][place] [place] [address] [facility] [place] [address] Laboratory Report Ordering Provider Test Date Status CHARMAINE VELARDE 07/29/2023 11:16:11 Final Observation Date Value Abnormality Reference (Units ) Status BUN 07/29/2023 11:16:11 17 6-20 (mg/dL) Final Creatinine 07/29/2023 11:16:11 0.9 0.5-1.0 (mg/dL) Final Glomerular filtration rate/1.73 sq M.predicted [Volume Rate/Area] in Serum, Plasma or Blood by Creatinine-based formula (CKD-EPI) 07/29/2023 11:16:11 70 >=60 (mL/min) Final eGFR is calculated based on the CKD-EPI 2020 equation Sodium 07/29/2023 11:16:11 140 135-146 (m mol/L) Final Potassium 07/29/2023 11:16:11 4.4 3.5-5.1 (m mol/L) Final Cl 07/29/2023 11:16:11 103 98-107 (mm ol/L) Final CO2 07/29/2023 11:16:11 27 22-32 (mmo l/L) Final Anion gap 07/29/2023 11:16:11 10 7-15 (mmol /L) Final Glucose 07/29/2023 11:16:11 146 Above high normal 70 -120 (mg/dL) Final Albumin 07/29/2023 11:16:11 4.5 3.8-5.0 (g /dL) Final AST (Aspartate aminotransferase) 07/29/2023 11:16:11 24 10-35 (U/L) Fin al Alk Phos 07/29/2023 11:16:11 149 Above high normal 35 -130 (U/L) Final Bilirubin, Total 07/29/2023 11:16:11 0.3 <=1 .2 (mg/dL) Final Calcium 07/29/2023 11:16:11 9.6 8.4-10.2 ( mg/dL) Final Protein 07/29/2023 11:16:11 6.8 6.0-8.3 (g /dL) Final ALT (Alanine aminotransferase) 07/29/2023 11:16:11 38 Above high normal 10-35 (U/L) Final Performing Location [facility] [place] [address] [facility] [id number]
--- OUTSIDE RECORDS SUMMARY | 2023-08-05 11:59 | External Medical Summary | Summary of Care ---
Author Name Unknown Organization [facility] Address [address] [place] [address] Phone [phone] Care Team Providers Care Customer Service Consultant Name Role Phone Vlad Grant MD Primary Care Provider [phone]- [phone] Reason for Visit * Reason Comments Outpatient Testing Encounter Details Date Type Department Care Team (Late st Contact Info) Description 07/29/2023 11:20 AM EDT Laboratory Laboratory, [place] [address] [place] [phone] [facility] [address], [place] [phone] Type 2 diabetes mellitus with hemoglobin A1c goal of less than 7.0% ([facility]); Tremor; HTN, goal below 140/90; Dyslipidemia, goal LDL below 70; Nonrheumatic mitral valve regurgitation; Asymptomatic bilateral carotid artery stenosis; Diabetes mellitus without complication ([facility]) Allergies Active Allergy Reactions Criticality Noted Date [...] bedtime. 34 Capsule 5 06/15/2022 Active FreeStyle [place] Lite w/Device Kit USE ONCE A DAY [...] partial remission 09/21/2022 Diabetes mellitus without complication Osteoporosis without current pathological fractu re 11/16/2018 [...] mRNA, LNP-s, No Pre serve, 2-Dose Series ([employer]) 07/30/2020 Seasonal Influenza, Quadriva lent, No Preserve, [...] Yes 12/28/2013 documented as of this encounter Plan of Treatment Upcoming Encounters Date Type Department Care Team (Late st Contact Info) Description 09/30/2023 3:40 PM EDT Office Visit [facility] [address] [place] [address] Vlad Grant MD [address], [place] [phone] 01/25/2024 11:20 AM EDT Office Visit Neurology [facility] [place] [address] [facility] [place] [address] [facility] [address] [facility] [address] 06/12/2024 3:00 PM EST Cardiac Studies Cardiac Studies, [facility] [address] [facility] [place] [address] Pending Results Name Type Priority Associated Diagnoses Date /Time HEMOGLOBIN A1C Lab Routine Type 2 diabetes mellitus with hemoglobin A1c goal of less than 7.0% (HCC) 07/29/2023 11:16 AM EDT COMPREHENSIVE METABOLIC PANEL Lab Routine Type 2 diabetes mellitus with hemoglobin A1c goal of less than 7.0% (HCC) 07/29/2023 11:16 AM EDT TSH WITH FREE T4 IF INDICATED Lab Routine Type 2 diabetes mellitus with hemoglobin A1c goal of less than 7.0% (HCC) Tremor 07/29/2023 11:16 AM EDT CBC Lab Routine HTN, goal below 140/90 Dyslipidemia, goal LDL below 70 Nonrheumatic mitral valve regurgitation Asymptomatic bilateral carotid artery stenosis 07/29/2023 11:16 AM EDT ALBUMIN / CREATININE RATIO, URINE Lab Routine Diabetes mellitus without complication (HCC) 07/29/2023 11:16 AM EDT Health Maintenance Due Date Last Done Comments [...] Ratio 10/13/2023 10/12/2022, 01/09 Mammogram 05/20/2024 05/20/2023, 0706/2021, 01/15/2016, Additional history exists Diabetic Foot Exam 05/31/2024 05/31/2023 Diabetic Eye Exam 07/28/2024 07/29/2023 Lipid Panel 09/25/2027 09/24/2022, 12/08, 01/29/2021, Additional history exists DTaP,Tdap,and Td Vaccines Discontinued 09/12/2008, 12/1996 VITAMIN D LEVEL ONCE IN A LIFETIME-USE SMARTSET# [id number] Completed 04/23/2016, 12/28/2013, 08/08/2008 Pneumococcal Vaccine: 65+ [...] Not on filedocumented as of this encounter Visit Diagnoses Diagnosis Type 2 diabetes mellitus with hemoglobin A1c goal of less than 7.0% (HCC) Tremor Abnormal involuntary movements HTN, goal below 140/90 Unspecified essential hypertension Dyslipidemia, goal LDL below 70 Other and unspecified hyperlipidemia Nonrheumatic mitral valve regurgitation Asymptomatic bilateral carotid artery stenosis Occlusion and stenosis of multiple and bilateral precerebral arteries without mention of cerebral infarction Diabetes mellitus without complication (HCC) Type II or unspecified type diabetes mellitus without mention of complication, not stated as uncontrolled documented in this encounter Care Teams Customer Service Consultant Relationship Specialty Start Date End Date Vlad Grant MD [address] [place] [address] PCP - General 02/26/00 documented as of this encounter
--- OUTSIDE RECORDS SUMMARY | 2023-08-05 11:59 | External Medical Summary ---
Author Name Unknown Address Unknown Organization K01:[facility] [place] [address] [place] [address] Laboratory Report Ordering Provider Test Date Status CHARMAINE VELARDE 07/29/2023 11:16:11 Final Observation Date Value Abnormality Reference (Units ) Status TSH 07/29/2023 11:16:11 0.88 0.27-4.20 (uIU/mL) Final Performing Location [facility] [place] [address] [place] [address]
--- OUTSIDE RECORDS SUMMARY | 2023-08-05 11:59 | External Medical Summary | Summary of Care ---
Author Name Unknown Organization [facility] Address [address] [place] [address] Phone [phone] Care Team Providers Care Book Mender Name Role Phone Vlad Grnat MD Primary Care Provider [phone] Reason for Visit * Reason Comments Acute Pt here today for si nus infection possibly and also fell on right against her bed and her side is sore not sure if it's just bruise or what. Encounter Details Date Type Department Care Team (Late st Contact Info) Description 07/29/2023 10:20 AM EDT Office Visit [facility] [address] [place] [address] Radha Golden MD [address] [place] [address] Bronchitis, complicated*; Allergic rhinitis, unspecified seasonality, unspecified trigger; Acute frontal sinusitis, recurrence not specified; Diabetes mellitus without complication (HCC); HTN, goal below 140/90; Fall, initial encounter; Rib pain on right side; Screen for colon cancer Allergies Active Allergy Reactions Criticality Noted Date [...] bedtime. 34 Capsule 5 06/15/2022 Active FreeStyle Berkeley Lite w/Device Kit USE ONCE A DAY [...] 09/28/2019 09/21/2022 PAIN IN LIMB, LEFT MORRISON 11/22/2007 06/0 12/2017 ADVANCE DIRECTIVE INFORMATION 10/08/2004 10/15/2017 Overview: given to pt Mitral valve disorder 2018 Major depressive disorder Overview: ICD-10 update of inactive term DIABETES IN PREG-UNSPEC 07/08 PRESCRIP-ORAL CONTRACEPT 12/2017 documented as of this encounter (statuses as of 07/29/2023) Immunizations Name Administration Dates Next Due COVID-19 mRNA, LNP-s, No Pre serve, 2-Dose Series (Brightbox Charge) 07/30/2020 Seasonal Influenza, Quadriva lent, No Preserve, IM 02/11/2016 Seasonal Influenza, Split, I IV3, With Preserve, Inj 06/26/2020,03/09/2010,03/01/2008 TDAP (age 11 and older)(Adacel) 09/12/2008 Varicella Zoster Vaccine (Adult) 02/11/2016 documented as of this encounter Social History Tobacco Use Types Packs/Day Years Used Date Smoking Tobacco: Never Passive Smoke Exposure: Current Smokeless Tobacco: Never Tobacco Cessation:Counseling Given: Not Answered Alcohol Use Standard Drinks/Week Comments No 0 [...] on file documented as of this encounter Last Filed Vital Signs Vital Sign Reading Time Taken Comments Blood Pressure 102/58 07/29/2023 10:39 AM EDT Pulse 107 07/29/2023 10:39 AM EDT Temperature 35.9 C (96.7 F) 07/29/2023 1 0:39 AM EDT Respiratory Rate 18 07/29/2023 10:3 9 AM EDT Oxygen Saturation 98% 07/29/2023 10: 39 AM EDT Inhaled Oxygen Concentration - - Weight 67.4 kg (148 lb 11.2 oz) 024 10:39 AM EDT Height - - Body Mass Index 23.15 05/31/2023 11:52 AM EST documented in this encounter Functional Status Functional Status Response [...] Yes 12/28/2013 documented as of this encounter Progress Notes * Radha Golden MD - 07/29/2023 12:16 PM EDT Subjective Margaret Chapman is a 68 year old female. Chief Complaint Patient presents with Acute Pt here today for sinus infection possibly and also fell on right against her bed and her side is sore not sure if it's just bruise or what. HPI: Here for sinus infection, bronchitis sx Has had drainage, cough more than a week Denies fever, wheezing, SOB , CP Known allergic rhinitis and also her grandson has been sick too Advised to take zyrtec or OTC and adding flonase And also will order ABx Also had a fall on rt side, pain but not severe, will observe Type 2 DM, diet control, not on med Eye exam today Hypertension, tremor Taking medication as prescribed, see med list. No medication side effects noted. Advised patient tokeep healthy life style, regular exercise with good diet, alejandrina. low sodium diet. And also check BP at home too. Denies associated chest discomfort, chest heaviness, chest pressure, chest tightness, edema, palpitations and shortness of breath. PMH: Patient Active Problem List Diagnosis Code Allergic rhinitis J30.9 COMMON MIGRAINE WITHOUT MENTION OF INTRACTABLE MIGRAINE G43.009 Esotropia H50.00 Tremor R25.1 HTN, goal below 140/90 I10 Osteoporosis without current pathological fracture M81.0 Gastroesophageal reflux disease K21.9 Major depressive disorder with single episode, in partial remission (HCC) F32.4 Diabetes mellitus without complication (HCC) E11.9 Current Outpatient Medications Medication Sig Dispense Refill Aspirin EC 81 MG Oral Tablet Delayed Release Take 1 Tablet by mouth in the morning. lamoTRIgine 25 MG Oral Tablet (LaMICtal) Take 1 Tablet by mouth in the morning and 1 Tablet before bedtime. Dicyclomine HCl 20 MG Oral Tablet (Bentyl) Take 1 Tablet by mouth. FLUoxetine HCl 40 MG Oral Capsule Take 1 Capsule by mouth in the morning and 1 Capsule before bedtime. 34 Capsule 5 FreeStyle Berkeley Lite w/Device Kit USE ONCE A DAY TO CHECK BLOOD SUGAR FreeStyle Lite Test In Vitro Strip USE ONE TEST STRIP TO TEST BLOOD SUGAR DAILY FreeStyle Lancets USE ONE LANCET TO TEST BLOOD SUGAR DAILY Vilazodone HCl 20 MG Oral Tablet (Viibryd) clonazePAM 1 MG Oral Tablet (KlonoPIN) Take half a tablet in the morning, half a tablet at noon, 1 tablet at bedtime. 60 Tablet 2 Restasis 0.05 % Ophthalmic Emulsion instill 1 drop into both eyes twice a day Propranolol HCl ER 60 MG Oral Capsule Extended Release 24 Hour (Inderal LA) Take 1 Capsule by mouthin the morning. 90 Capsule 3 Primidone 250 MG Oral Tablet (Mysoline) Take 1 Tablet by mouth in the morning and 1 Tablet before bedtime. 180 Tablet 3 dilTIAZem HCl ER Coated Beads 180 MG Oral Capsule Extended Release 24 Hour (Cardizem CD) Take 1 Capsule by mouth in the morning. 90 Capsule 1 Atorvastatin Calcium 20 MG Oral Tablet (Lipitor) Take 1 Tablet by mouth in the morning. 90 Tablet 3 Losartan Potassium 25 MG Oral Tablet (Cozaar) Take 1 Tablet by mouth in the morning. Fluticasone Propionate 50 MCG/ACT Nasal Suspension (Flonase) Administer 2 Sprays into each nostril in the morning. 16 g 1 Amoxicillin-Pot Clavulanate 500-125 MG Oral Tablet (Augmentin) Take 1 Tablet by mouth in the morning and 1 Tablet before bedtime. Do all this for 10 days. 20 Tablet 0 No current facility-administered medications for this visit. Past Medical History: Diagnosis Date Allergic rhinitis Depressive disorder, not elsewhere classified Diabetes mellitus of mother, complicating , childbirth, or the puerperium, unspecified as to episode of care(648.00) gestational DM with all pregnancies Esotropia General counseling for prescription of oral contraceptives Hypertension Migraine without aura Mitral valve disorder no regurge by echo 87 and 88 Tremor Past Surgical History: Procedure Laterality Date EXPLORATION OF ABDOMEN 1986 [place] LAPAROSCOPY; CHOLECYSTECTOMY N/A 12/14/2017 LAPAROSCOPIC CHOLECYSTECTOMY performed by Christian Vanessa MD at OR [facility] REMOVE TONSILS & ADENOIDS, UNDER 12 Tonsillectomy/Adenoids,<12 Y/O STRESS TREADMILL 1996 treadmill normal Review of patient's allergies indicates: Allergen Reactions Sulfa Antibiotics Family History Problem Relation Age of Onset Allergies Mother Heart Disorder Father [place] age 68, [place] age 75 Diabetes Father Parkinsonism Father Hypertension Sister Allergies Sister Arthritis Grandmother (Maternal) Heart Disorder Grandfather (Maternal) pacemaker Tremor Grandfather (Paternal) Other (Tremor) Other Several members Breast Cancer No significant family history Family Status Relation Status Mo Alive Fa Sis Alive MGMA MGFA PGMA PGFA Raciel Alive Raciel Alive Raciel Alive Other (Not Specified) No history (Not Specified) Social History Socioeconomic History Marital status: Spouse name: Not on file Number of children: 3 Years of education: Not on file Highest education level: Not on file Occupational History Occupation: presently not working Tobacco Use Smoking status: Never Passive exposure: Current Smokeless tobacco: Never Substance and Sexual Activity Alcohol use: No Drug use: No Sexual activity: Never Comment: Other Topics Concern Not on file Social History Narrative with [facility] in 1994 at the age of 42. Has three children (30,28,24) in good health. Not currently working. Social Determinants of Health Financial Resource Strain: Not on file Food Insecurity: Not on file Transportation Needs: Not on file Physical Activity: Not on file Stress: Not on file Social Connections: Not on file Intimate Partner Violence: Not on file Housing Stability: Not on file Review of Systems Constitutional: Positive for fatigue. Negative for activity change, appetite change, chills, diaphoresis, fever and unexpected weight change. HENT: Positive for congestion, postnasal drip, rhinorrhea, sinus pressure, sinus pain, sore throat and tinnitus. Negative for ear discharge, ear pain and hearing loss. Eyes: Negative for visual disturbance. Respiratory: Positive for cough and chest tightness. Negative for shortness of breath and wheezing. Cardiovascular: Negative for chest pain, palpitations and leg swelling. Musculoskeletal: Positive for arthralgias (rt sided rib pain body pain). Allergic/Immunologic: Positive for environmental allergies. Neurological: Positive for tremors and headaches. Negative for dizziness and light-headedness. Psychiatric/Behavioral: Positive for sleep disturbance. Negative for agitation and behavioral problems. The patient is nervous/anxious. Objective BP 102/58 | Pulse 107 | Temp 35.9 C (96.7 F) (Infrared ) | Resp 18 | Wt 67.4 kg (148 lb 11.2 oz) | LMP 08/30/2008 | SpO2 98% | BMI 23.15 kg/m | BSA 1.79 m Physical Exam Constitutional: General: She is not in acute distress. Appearance: Normal appearance. She is ill-appearing. She is not toxic-appearing or diaphoretic. HENT: Head: Normocephalic and atraumatic. Nose: Congestion and rhinorrhea present. Eyes: Extraocular Movements: Extraocular movements intact. Cardiovascular: Rate and Rhythm: Regular rhythm. Tachycardia present. Pulses: Normal pulses. Heart sounds: No murmur heard. Pulmonary: Effort: Pulmonary effort is normal. No respiratory distress. Breath sounds: No stridor. Rhonchi (mild with cough) present. No wheezing or rales. Chest: Chest wall: No tenderness. Musculoskeletal: General: Tenderness present. Right lower leg: No edema. Left lower leg: No edema. Neurological: Mental Status: She is alert and oriented to person, place, and time. Psychiatric: Behavior: Behavior normal. Comments: Anxiety ASSESSMENT/PLAN: Bronchitis, complicated (Primary) Allergic rhinitis, unspecified seasonality, unspecified trigger Acute frontal sinusitis, recurrence not specified Diabetes mellitus without complication (HCC) - TELEMEDICINE DIABETIC EYE - ALBUMIN / CREATININE RATIO, URINE; Future; Expected date: 07/29/2023 HTN, goal below 140/90 Fall, initial encounter Rib pain on right side Screen for colon cancer - COLOGUARD Other orders - Fluticasone Propionate 50 MCG/ACT Nasal Suspension (Flonase); Administer 2 Sprays into each nostril in the morning. - Amoxicillin-Pot Clavulanate 500-125 MG Oral Tablet (Augmentin); Take 1 Tablet by mouth in the morning and 1 Tablet before bedtime. Do all this for 10 days. Augmentin Allergy meds Cont other meds Radha Golden MD * Aretha Sanches LPN - 07/29/2023 10:42 AM EDT Images from the original note were not included. The importance of having a yearly diabetic eye exam has been discussed with patient. Order and/or Referral placed along with patient instructions. Provider made aware. Aretha Sanches LPN Diabetic Retinopathy: Evaluating Your Eyes Diabetic retinopathy is a condition that happens when diabetes damages blood vessels in the rear ofthe eye. It can lead to vision loss. To help catch it early, have a complete dilated eye exam at least once a year. During the exam, the eye healthcare provider will review your medical history, examine your eyes, and check your vision. Women who are and have pre-existing type 1 or type 2 diabetes have an increased risk of retinopathy. Women with diabetes should have an eye exam before or in the first trimester. They should continue to be monitored every trimester and for 1 year after delivery, depending on the severity of the retinopathy. The retina is the light-sensitive part of the eye that allows you to see. High blood sugar can damage blood vessels of the retina and cause them to leak or bleed. This damage can lead to abnormal blood vessel growth. This condition is called diabetic retinopathy. You may not have symptoms early in the disease. Later, there may be floaters, blurred vision, or poor night vision. There may also be partial or complete vision loss. Early cases of diabetic retinopathy can be treated by carefully controlling blood sugar, blood pressure, and cholesterol. Surgery or laser treatments may help restore lost vision. Laser surgery can shrink abnormal blood vessels or close ones that are leaking. Medicines injected in the eye can help decrease swelling of the retina. Home care Take all medicines, including insulin or oral diabetic medicine, exactly as prescribed. Follow the diet advised by your healthcare provider. If you have high cholesterol, follow a low-fat, low-cholesterol diet. Monitor blood sugars as advised. Try to achieve your ideal weight. If you smoke, quit smoking. Tobacco use worsens the effect of diabetes on your blood vessels. If you have high blood pressure, consider buying an automatic blood pressure machine. These are available at most pharmacies. Use this to monitor your blood pressure. Report your blood pressure readings to your healthcare provider. Exercise regularly. Follow-up care Follow up with your healthcare provider, or as advised. You must have a complete eye exam at least once a year, more often if needed. Untreated diabetic retinopathy can lead to complete loss of vision. Occupational therapists can help you adapt to any vision loss you have, including learning techniques to safely administer insulin. When to seek medical advice Call your healthcare provider right away if any of these occur. Increasing blurriness or any sudden changes in your vision Sudden flashes of light inside your eye New floaters (small dots or strings that seem to be moving across your field of vision) Eye pain, redness, or discharge from your eyelid New dark spots appearing in your field of vision Halos around lights Dimness of vision Partial or complete loss of vision Women with diabetes should have a complete eye exam before becoming , or as soon as possible when they find out they are . Retinopathy sometimes worsens during . Your eye exam Your eye healthcare provider uses an eye chart and other tools to check your vision. Then he or sheexamines your eyes for signs of disease. You are given eye drops to widen (dilate) your pupils. Youmay have one or more of the following tests: Tonometry to measure fluid pressure inside the eye. Slit lamp exam to allow the healthcare provider to view the structures of your eye. Ultrasound to create an image of the eye using sound waves. Ultrasound may be used if blood is found in the clear gel that fills the eye (vitreous). Ocular coherence tomography (OCT) to create an image of the retina using light waves. This shows ifthere is fluid leaking into certain parts of the eye. It can also measure the thickness of the retina. Fluorescein angiography This test may be done to check the health of the inside lining of the eye (retina). It also checks the tiny blood vessels (capillaries) that carry blood to the retina. During the test: Photographs are taken of the retina. A dye is then injected into the bloodstream through the arm or hand. The dye travels to the capillaries in the eye. More photographs are taken of the retina. The dye causes the capillaries to stand out on the photographs. You may feel brief nausea during the procedure. For a few hours after the test, your skin, eyes, and urine may appear yellow. Talk with your healthcare provider for more information about this test. Date Last Reviewed: 10/09/201519990336-8451 [employer]. [address] [place] [address], [place] [address]. All rights reserved. This information is not intended as a substitute for professional medical care. Always follow your healthcare professional's instructions. Urine albumin/creatinine ratio ordered today. Provider aware. documented in this encounter Nursing Notes * Aretha Sanches LPN - 07/29/2023 10:34 AM EDT Chief Complaint Patient presents with Acute Pt here today for sinus infection possibly and also fell on right against her bed and her side is sore not sure if it's just bruise or what. documented in this encounter Plan of Treatment Upcoming Encounters Date Type Department Care Team (Late st Contact Info) Description 09/30/2023 3:40 PM EDT Office Visit [facility], [place] [address] [place] [phone] Vlad Grant MD [address] [place] [address] 01/25/2024 11:20 AM EDT Office Visit Neu[facility] [address], [place] [id number] Reji Smith MD [address] [place] [address] 06/12/2024 3:00 PM EST Cardiac Studies Cardiac Studies, [facility] [address] [place] [address] Pending Results Name Type Priority Associated Diagnoses Date /Time ALBUMIN / CREATININE RATIO, URINE Lab Routine Diabetes mellitus without complication (HCC) 07/29/2023 11:16 AM EDT Scheduled Orders Name Type Priority Associated Diagnoses Orde r Schedule ALBUMIN / CREATININE RATIO, URINE Lab Routine Diabetes mellitus without complication (HCC) Expected: 07/29/2023, Expires: 07/28/2024 COLOGUARD Lab Unrestricted Lab Screen for colon cancer Ordered: 07/29/2023 Health Maintenance Due Date Last Done Comments [...] D LEVEL ONCE IN A LIFETIME-USE SMARTSET# [id number] Completed 04/23/2016, 12/28/2013, 08/08/2008 Pneumococcal Vaccine: 65+ [...] Not on filedocumented as of this encounter Procedures Procedure Name Priority Date/Time Associated Diagnosis Comments TELEMEDICINE DIABETIC EYE Routine 07/29/2023 Diabetes mellitus without complication (HCC) documented in this encounter Results * TELEMEDICINE DIABETIC EYE (07/29/2023) 07/29/2023 Radha Golden MD DIGITAL PHOTOGRAPHY documented in this encounter Visit Diagnoses Diagnosis Bronchitis, complicated- Primary Bronchitis, not specified as acute or chronic Allergic rhinitis, unspecified seasonality, unspecified trigger Acute frontal sinusitis, recurrence not specified Diabetes mellitus without complication (HCC) Type II or unspecified type diabetes mellitus without mention of complication, not stated as uncontrolled HTN, goal below 140/90 Unspecified essential hypertension Fall, initial encounter Rib pain on right side Chest pain, unspecified Screen for colon cancer Special screening for malignant neoplasms, colon documented in this encounter Care Teams Book Mender Relationship Specialty Start Date End Date Vlad Grant MD [address] [place] [address] PCP - General 02/26/00 documented as of this encounter"
--- OUTSIDE RECORDS SUMMARY | 2023-08-05 11:59 | External Medical Summary ---
Author Name Unknown Address Unknown Organization [id number]:LABORATORY [facility] - [facility] [address] [facility] [address] Laboratory Report Ordering Provider Test Date Status TONG NOVA 07/29/2023 11:16:11 Final Observation Date Value Abnormality Reference (Units ) Status WBC, Total 07/29/2023 11:16:11 18.71 Above high normal 4.00-10.80 (K/uL) Final RBC 07/29/2023 11:16:11 4.14 3.85-5.15 (M/uL) Final Hemoglobin 07/29/2023 11:16:11 13.9 12.0-15.3 (g/dL) Final HCT 07/29/2023 11:16:11 42.7 36.0-45.2 (%) Final MCV 07/29/2023 11:16:11 103.1 81.5-97.5 (fL) Final MCH 07/29/2023 11:16:11 33.6 27.0-34.0 (pg) Final MCHC 07/29/2023 11:16:11 32.6 32.0-36.0 (g/dL) Final RDW 07/29/2023 11:16:11 12.4 11.5-15.5 (%) Final Platelets 07/29/2023 11:16:11 283 140-400 (K/uL) Final MPV 07/29/2023 11:16:11 11.0 6.6-11.1 (fL) Final Nucleated erythrocytes/100 leukocytes [Ratio] in Blood by Automated count 07/29/2023 11:16:11 0 <=0 (/100 WBCs) Final Performing Location LABORATORY [facility] - [address] [facility] [address]
--- OUTSIDE RECORDS SUMMARY | 2023-08-05 11:59 | External Medical Summary ---
Author Name Unknown Address Unknown Organization [id number]:LABORATORY [facility] - [address] [facility] [address] Laboratory Report Ordering Provider Test Date Status CHARMAINE VELARDE 07/29/2023 11:16:11 Final Observation Date Value Abnormality Reference (Units ) Status HbA1C 07/29/2023 11:16:11 6.0 Above high normal 4. 0-5.6 (%) Final The use of HbA1c to monitor glycemic status is based on normal hemoglobin and HbA composition. This test should not be used in patients with abnormal hemoglobin that affects the half life of the red blood cell or the in vivo glycation rates. Glucose, estimated average 07/29/2023 11:16:11 126 Above high normal <126 (mg/dL) Derick gonzalez Performing Location LABORATORY [facility] - [address] [facility] [facility] [address]
--- OUTSIDE RECORDS SUMMARY | 2023-08-05 12:00 | External Medical Summary | Summary of Care ---
Author Name Unknown Organization [facility] Address [address] [place] [address] Phone [phone] Care Team Providers Care Nuclear Reactor Engineer Name Role Phone Vlad Grant MD Primary Care Provider [phone] Encounter Details Date Type Department Care Team (Late st Contact Info) Description 04/06/2023 Orders Only Outcomes Research Department [address] [place] [address] Emma Rhodes CHRA MyCode Research Other*[id number] Allergies Active Allergy Reactions Criticality Noted Date Comments Sulfa Antibiotics 07/24/2002 documented as of this encounter (statuses as of 04/06/2023) Medications Medication Sig Dispensed Refills Start Date End Date Status Aspirin EC 81 MG Oral Tablet Delayed Release Take 1 Tablet by mouth in the morning. 0 Active lamoTRIgine 25 MG Oral Tablet (LaMICtal) Take 1 Tablet by mouth in the morning and 1 Tablet before bedtime. 0 04/17/2020 Active Atorvastatin Calcium 20 MG Oral Tablet (Lipitor) take 1 tablet by mouth once daily 90 Tablet 3 05/06/2022 Active Dicyclomine HCl 20 MG Oral Tablet (Bentyl) Take 1 Tablet by mouth. 0 08/05/2021 Active FLUoxetine HCl 40 MG Oral Capsule Take 1 Capsule by mouth in the morning and 1 Capsule before bedtime. 34 Capsule 5 06/15/2022 Active Amoxicillin 500 MG Oral Tablet 0 06/04/2022 Active FreeStyle [place] Lite w/Device Kit USE ONCE A DAY TO CHECK BLOOD SUGAR 0 07/01/2022 Active FreeStyle Lite Test In Vitro Strip USE ONE TEST STRIP TO TEST BLOOD SUGAR DAILY 0 06/25/2022 Active FreeStyle Lancets USE ONE LANCET TO TEST BLOOD SUGAR DAILY 0 05/01/2022 Active Losartan Potassium 25 MG Oral Tablet (Cozaar) Take 1 Tablet by mouth in the morning. 30 Tablet 11 04/20/2022 04/20/2023 Active Vilazodone HCl 20 MG Oral Tablet (Viibryd) 0 07/24/2022 Active Zonisamide 50 MG Oral Capsule (Zonegran)Indication s:Essential tremor Take 1 capsule per mouth in the evening 30 Capsule 5 07/28/2022 Active Propranolol HCl ER 80 MG Oral Capsule Extended Release 24 Hour (Inderal LA)Indications:Essen tial tremor Take 1 Capsule by mouth in the morning. 30 Capsule 5 07/28/2022 Active dilTIAZem HCl ER Coated Beads 180 MG Oral Capsule Extended Release 24 Hour (Cardizem CD) take 1 capsule by mouth once daily 90 Capsule 1 10/01/2022 Active clonazePAM 1 MG Oral Tablet (KlonoPIN)Indication s:Excessive physiologic tremor Take half a tablet in the morning, half a tablet at noon, 1 tablet at bedtime. 60 Tablet 2 10/20/2022 Active Restasis 0.05 % Ophthalmic Emulsion instill 1 drop into both eyes twice a day 0 10/27/2022 Active Primidone 50 MG Oral Tablet (Mysoline)Indication s:Essential tremor 4 tablets in the morning and 4 tablets in the evening 720 Tablet 4 12/01/2022 Active documented as of this encounter (statuses as of 04/06/2023) Active Problems Problem Noted Date Diagnosed Date Major depressive disorder wi th single episode, in partial remission 09/21/2022 Diabetes mellitus without complication Osteoporosis without current pathological fractu re 11/16/2018 Gastroesophageal reflux disease 11/16/2018 HTN, goal below 140/90 07/01/2018 Tremor 02/09/2011 Allergic rhinitis 01/12/2003 COMMON MIGRAINE WITHOUT MENTION OF INTRACTABLE M IGRAINE Esotropia documented as of this encounter (statuses as of 04/06/2023) Resolved Problems Problem Noted Date Diagnosed Date [...] as of this encounter (statuses as of 04/06/2023) Immunizations Name Administration Dates Next Due COVID-19 mRNA, LNP-s, No Pre serve, 2-Dose Series (Pfizer) 07/30/2020 Seasonal Influenza, Quadriva lent, No Preserve, IM 02/11/2016 Seasonal Influenza, Split, I IV3, With Preserve, Inj 06/26/2020,03/09/2010,03/01/2008 TDAP (age 11 and older)(Adacel) 09/12/2008 Varicella Zoster Vaccine (Adult) 02/11/2016 documented as of this encounter Social History Tobacco Use Types Packs/Day Years Used Date Smoking Tobacco: Never Smokeless Tobacco: Never Alcohol Use Standard Drinks/Week [...] Care Team (Late st Contact Info) Description 05/25/2023 3:00 PM EST Office Visit Neurology [facility] [address] [place] [address] Reji Smith MD [address] [place] [address] 05/31/2023 11:40 AM EST Office Visit [facility] [address] [place] [phone] Vlad Grant MD [address] [place] [address] 06/09/2023 1:00 PM EST Cardiac Studies Cardiac Studies, [facility] [address] [facility] [place] [address] 06/10/2023 2:30 PM EST Office Visit Cardiology, [facility] [address] [facility] [place] [address] Garcia Bardales DO [address] [facility] [place] [address] Scheduled Orders Name Type Priority Associated Diagnoses Orde r Schedule MYCODE SUBSEQUENT ADULT Lab Routine MyCode Research Other*[id number] Every 6 Months for 2 Occurrences starting 04/06/2023 until 04/25/2024 Health Maintenance Due Date Last Done Comments Diabetic Eye Exam 1972 Diabetic Foot Exam 1972 Hepatitis C Screening 1972 COLONOSCOPY-EVERY 5 YRS AGES 18-100 09/23/2009 09/23/2004, 07/12/2000 Hepatitis B (1 of 3 - Risk 3-dose series) 2014 Zoster Vaccines (2 of 3) 04/07/2016 02/11/2016 DTaP,Tdap,and Td Vaccines (2 - Td or Tdap) 09/12/2018 09/12/2008, 02/14/1997 Depression Screening 03/28/2020 03/28/2019 *BISPHONATE OR OTHER ACCEPTABLE MEDICATION NEEDED FOR OSTEOPOROSIS (REFER TO SMARTSET #1146) 12/07/2021 Mammogram 11/28/2022 11/28/2021, 11/2015, 11/05/2011, Additional history exists COVID-19 Vaccine ( season) 2023 02/16/2022, 03/12/2021, 08/27/2020, Additional history exists Influenza Vaccine (FLU shot) (#1) 2023 06/26/2020, 02/11/2016, 03/09/2010, Additional history exists HbA1c 03/27/2023 09/24/2022, 12/08, 07/02/2005 DXA Scan 09/09/2023 09/08/2021, 09/07, 12/09/2015 GFR 09/25/2023 09/24/2022, 01/09, 09/02/2020, Additional history exists Albumin/Creatinine Ratio 10/13/2023 10/12/2022, 01/09 Lipid Panel 09/25/2027 09/24/2022, 12/08, 01/29/2021, Additional history exists VITAMIN D LEVEL ONCE IN A LIFETIME-USE SMARTSET# 83524 Completed 04/23/2016, 12/28/2013, 08/08/2008 Pneumococcal Vaccine: 65+ Years Completed 04/20/2022, 03/12/2021 GARDASIL-HPV IMMUNIZATION SERIES Aged Out No longer eligible based on patient's age to complete this topic MENINGOCOCCAL (MENACTRA/MENVEO) Aged Out No longer eligible based on patient's age to complete this topic documented as of this encounter Medical Devices Not on filedocumented as of this encounter Visit Diagnoses Diagnosis MyCode Research Other*[id number] documented in this encounter Care Teams Nuclear Reactor Engineer Relationship Specialty Start Date End Date Vlad Grant MD [address] [place] [address] PCP - General 02/26/00 documented as of this encounter
--- OUTSIDE RECORDS SUMMARY | 2023-08-05 12:00 | External Medical Summary | Summary of Care ---
Author Name Unknown Organization [facility] Address [address] [place] [address] Phone [phone] Care Team Providers Care Sheep Clipper Name Role Phone Vlad Grant MD Primary Care Provider [phone]- [phone] Reason for Visit * Reason Onset Date Comments Advice 03/24/2023 Encounter Details Date Type Department Care Team (Late st Contact Info) Description 03/24/2023 Telephone Neurology, [place] [address] [place] [address] Specified, Z No Resource [address] [place] [address] Advice Allergies Active Allergy Reactions Criticality Noted Date Comments Sulfa Antibiotics 07/24/2002 documented as of this encounter (statuses as of 03/26/2023) Medications Medication Sig Dispensed Refills Start Date [...] MG Oral Tablet 0 06/04/2022 Active FreeStyle [place] Lite w/Device Kit USE ONCE A DAY [...] as of this encounter (statuses as of 03/26/2023) Active Problems Problem Noted Date Diagnosed Date Major depressive disorder wi th single episode, in partial remission 09/21/2022 Diabetes mellitus without complication 3 Osteoporosis without current pathological fractu re 11/16/2018 Gastroesophageal reflux disease 11/16/2018 HTN, goal below 140/90 07/01/2018 Tremor 02/09/2011 Allergic rhinitis 01/12/2003 COMMON MIGRAINE WITHOUT MENTION OF INTRACTABLE M IGRAINE Esotropia documented as of this encounter (statuses as of 03/26/2023) Resolved Problems Problem Noted Date Diagnosed Date [...] as of this encounter (statuses as of 03/26/2023) Immunizations Name Administration Dates Next Due COVID-19 mRNA, LNP-s, No Pre serve, 2-Dose Series ([place]) 07/30/2020 Seasonal Influenza, Quadriva lent, No Preserve, [...] encounter Miscellaneous Notes * Telephone Encounter - Mercedes Kwok LPN - 03/26/2023 11:14 AM EST Message left for patient to return call * Telephone Encounter - Mercedes Kwok LPN - 03/25/2023 8:53 AM EST Message left for patient to return call * Telephone Encounter - Mercedes Kwok LPN - 03/24/2023 1:58 PM EST Spoke with patient She is reporting that she is out of the propanolol ER 80 mg and needs it reordered She does not feel that this helps much with her tremor and gives her a headache and before reordering wonders if you want to order something else Headache is always at dinner time Also takes primidone 50 mg 4 tablets in the morning and 4 tablets in the evening documented in this encounter Plan of Treatment Upcoming Encounters Date Type Department Care Team (Late st Contact Info) Description 05/25/2023 3:00 PM EST Office Visit [facility] [address] [place] [address] Reji Smith MD [address] [place] [address] 05/31/2023 11:40 AM EST Office Visit [facility] [address] [place] [phone] Vlad rGant MD [address] [place] [address] 06/09/2023 1:00 PM EST Cardiac Studies Cardiac Studies, [facility] [address] [facility] [place] [id number] 06/10/2023 2:30 PM EST Office Visit Cardiology, [facility] [address] [place] [id number] Garcia Bardales, [address] [facility] [address] Health Maintenance Due Date Last Done Comments [...] TO SMARTSET #1146) 12/07/2021 Mammogram 11/28/2022 11/28/2021, 09/0 11/2015, 11/05/2011, Additional history exists COVID-19 Vaccine [...] D LEVEL ONCE IN A LIFETIME-USE SMARTSET# [id number] Completed 04/23/2016, 12/28/2013, 08/08/2008 Pneumococcal Vaccine: 65+ Years Completed 04/20/2022, 03/12/2021 GARDASIL-HPV IMMUNIZATION SERIES Aged Out No longer eligible based on patient's age to complete this topic MENINGOCOCCAL (MENACTRA/MENVEO) Aged Out No longer eligible based on patient's age to complete this topic documented as of this encounter Medical Devices Not on filedocumented as of this encounter Care Teams Sheep Clipper Relationship Specialty Start Date End Date Vlad Grant MD [address] [place] [address] PCP - General 02/26/00 documented as of this encounter
--- OUTSIDE RECORDS SUMMARY | 2023-08-05 12:00 | External Medical Summary | Summary of Care ---
Author Name Unknown Organization [facility] Address [address] [place] [address] Phone [phone] Care Team Providers Care Group Cio Name Role Phone Vlad Grant MD Primary Care Provider [phone] Reason for Visit * Reason Comments Status Check Return in 4 months Encounter Details Date Type Department Care Team (Late st Contact Info) Description 05/31/2023 11:40 AM EST Office Visit [facility] [address] [place] [address] Vlad Grant MD [address] [place] [address] Risk and functional assessment*; Type 2 diabetes mellitus with hemoglobin A1c goal of less than 7.0% ([facility]); Tremor; HTN, goal below 140/90; Diabetes mellitus without complication ([facility]); Gastroesophageal reflux disease, unspecified whether esophagitis present Allergies Active Allergy Reactions Criticality Noted Date Comments Sulfa Antibiotics 07/24/2002 documented as of this encounter (statuses as of 06/14/2023) Medications Medication Sig Dispensed Refills Start Date [...] bedtime. 34 Capsule 5 06/15/2022 Active FreeStyle Clifford Lite w/Device Kit USE ONCE A DAY [...] mouth once daily 90 Tablet 3 05/06/2022 06/10/2023 Discontinued (Refill) dilTIAZem HCl ER Coated Beads 180 MG Oral Capsule Extended Release 24 Hour (Cardizem CD) take 1 capsule by mouth once daily 90 Capsule 1 10/01/2022 05/31/2023 Discontinued (Refill) documented as of this encounter (statuses as of 06/14/2023) Active Problems Problem Noted Date Diagnosed Date Major depressive disorder wi th single episode, in partial remission 09/21/2022 Diabetes mellitus without complication 3 Osteoporosis without current pathological fractu re 11/16/2018 Gastroesophageal reflux disease 11/16/2018 HTN, goal below 140/90 07/01/2018 Tremor 02/09/2011 Allergic rhinitis 01/12/2003 COMMON MIGRAINE WITHOUT MENTION OF INTRACTABLE M IGRAINE Esotropia documented as of this encounter (statuses as of 06/14/2023) Resolved Problems Problem Noted Date Diagnosed Date [...] as of this encounter (statuses as of 06/14/2023) Immunizations Name Administration Dates Next Due COVID-19 [...] Date Smoking Tobacco: Never Smokeless Tobacco: Never Tobacco Cessation:Counseling Given: Not [...] Sign Reading Time Taken Comments Blood Pressure 128/64 05/31/2023 11:52 AM EST Pulse 81 05/31/2023 11:52 AM EST Temperature 36.7 C (98 F) 05/31/2023 11:52 AM EST Respiratory Rate 18 05/31/2023 11:52 AM EST Oxygen Saturation 96% 05/31/2023 11:52 AM EST Inhaled Oxygen Concentration - - Weight 68.2 kg (150 lb 6.4 oz) 05/31/2023 11:52 AM EST Height 170.7 cm (5' 7.2") 05/31/2023 11:52 AM ES T Body Mass Index 23.42 05/31/2023 11:52 AM EST documented in this [...] Yes 12/28/2013 documented as of this encounter Patient Instructions * Patient Instructions* Spring Soriano LPN - 05/31/2023 11:51 AM EST Patient Instructions - Fall Prevention (This education is for all patients over 65 regardless of symptoms) Remember to take your current medications as prescribed. In order to prevent falls, you are encouraged to: Exercise Utilize assistive/adaptive devices Avoid multifocal lenses when walking Avoid hazards in home Maintain a regular toileting schedule Any questions please contact our office. Preventing Falls in the Home (This education is for all patients over 65 regardless of symptoms) As you get older, falls are more likely. Thats because your reaction time slows. Your muscles and joints may also get stiffer, making them less flexible. Illness, medications, and vision changes can also affect your balance. A fall could leave you unable to live on your own. To make your home safer, follow these tips: Floors Put nonskid pads under area rugs Remove throw rugs Replace worn floor coverings Tack carpets firmly to each step on carpeted stairs. Put nonskid strips on the edges of uncarpeted stairs Keep floors and stairs free of clutter and cords Arrange furniture so there are clear pathways Clean up any spills right away Bathrooms Install grab bars in the tub or shower Apply nonskid strips or put a nonskid rubber mat in the tub or shower Sit on a bath chair to bathe Use bathmats with nonskid backing Lighting Keep a flashlight in each room Put a nightlight along the pathway between the bedroom and the bathroom [employer] Patient Education Copyright 2008 - 2010 [employer] except where otherwise noted Preventing Falls: Exercises to Improve Balance, Flexibility, Strength, and Staying Power (This education is for all patients over 65 regardless of symptoms) Certain types of exercises may help make you less likely to fall. Try the ones below. Or do other exercises that your healthcare provider suggests. Depending on your health, you may need to start slowly. Dont let that stop you. Even small amounts of exercise can help you. Be sure to talk to yourhealthcare provider before starting any exercise program. Improve Balance Many types of exercise can help improve balance. Mehul chi and yoga are good examples. Heres another one to try. You can do it anytime and almost anywhere. Stand next to a counter or solid support. Push yourself up onto your tiptoes. Hold for 5 seconds. If you start to lose your balance, hold on to the counter. Rest and repeat 5 times. Work up to holding for 20 to 30 seconds, if you can. Increase Flexibility Being more flexible makes it easier for you to move around safely. Try exercises like the seated hamstring stretch. Sit in a chair and put one foot on a stool. Straighten your leg and reach with both hands down either side of your leg. Reach as far down your leg as you can. Hold for about 20 seconds. Go back to the starting position. Then repeat 5 times. Switch legs. Build Strength Resistance exercises help build strength. You can do them without equipment. Or you can use weights, elastic bands, or special machines. One such exercise is called the biceps curl. You can hold a 1 pound weight or even a can of soup. Do this exercise at least 3 times a week. Strive for everyday. Sit up straight in a chair. Keep your elbow close to your body and your wrist straight. Bend your arm, moving your hand up to your shoulder. Then slowly lower your arm. Repeat 5 times. Switch to the other arm. Build Your Staying Power Aerobic exercises make your heart and lungs stronger so you can keep moving longer. Walking and swimming are two of the best types of exercises you can do. Using a stationary bike is great, too. Find an aerobic exercise that you enjoy. Start slowly and build up. Even 5 minutes is helpful. Aimfor a goal of 30 minutes, at least 3 times a week. You dont have to do 30 minutes in one session. Break it up and walk a little throughout the day. More Helpful Tips Start easy. Slowly work up to doing more. Talk with your healthcare provider about the best exercises for you. Call senior centers or health clubs about exercise programs. If needed, have a family member watch you walk every so often to check your stability. Exercise with a friend. Choose an activity you both enjoy. Try exercises that you can do anytime, anywhere. Here are two examples. Have someone with you when you first try these: Practice walking by placing one foot right in front of the other. Stand up and sit down 10 times. Repeat this throughout the day. [employer]ine Patient Education Copyright 2009 - 2010 [employer] except where otherwise noted. Preventing Falls: Moving Safely Using a Cane or Walker (This education is for all patients over 65 regardless of symptoms) Keep the cane away from your feet so you dont trip. A walking aid, such as a cane or walker, can help you stay more independent and avoid falls. Remember to keep your walking aid within easy reach when youre in a chair or in bed. And learn how to use it safely so you dont injure yourself. Using a Cane If you have a stronger side, hold the cane on that side. Get your balance. Move the cane and your weaker leg forward. Support your weight on both the cane and your weaker side. Step with your stronger leg. Start again from step 1. If youre using a folding walker, be sure you know how to lock it open. Check that its locked open before each use. Using a Walker Roll the walker (or lift it, if youre using one without wheels) forward about 12 inches. Step forward with your weaker leg first. Use the walker to help keep your balance. Bring your other foot forward to the center of the walker. Start again from step 1. Helpful Tips Check with your healthcare provider about the right walking aid to use. Ask about a walker with a seat attached. Check the tips of your cane or walker to make sure they have nonskid covers. Move slowly from room to room. Dont flores. Sit down to get dressed. Use a trevor pack or backpack to keep your hands free. Get help for jobs that mean climbing, even on a stepstool. Karine Patient Education Copyright 2008 - 2010 Kar[employer] except where otherwise noted. Urinary Incontinence Plan of Care Documentation: (This education is for all patients over 65 regardless of symptoms) Current medications reconciled. Patient encouraged to: Practice kegal exercises Provide education materials Use the restroom every 2 hours throughout the day Limit caffeine, alcohol, spicy foods and acidic foods Keep a bladder diary Limit fluid intake 3-4 hours before bed Lose weight Prevent constipation Take fluid pills at a time when you can get to the bathroom quickly Control sugar better if diabetic Limit fluid intake to 60 oz. per day Wear support stockings (TEDs)if you have edema Spring Soriano LPN 05/31/2023 Kegel Exercises Kegel exercises dont require special clothing or equipment. Theyre easy to learn and simple to do. And if you do them right, no one can tell youre doing them, so they can be done almost anywhere. Your doctor, nurse, or physical therapist can answer any questions you have and help you get started. A Weak Pelvic Floor The pelvic floor muscles may weaken due to aging, and vaginal childbirth, injury, surgery, chronic cough, or lack of exercise. If the pelvic floor is weak, your bladder and other pelvic organs may sag out of place. The urethra may also open too easily and allow urine to leak out. Kegel exercises can help you strengthen your pelvic floor muscles so they can better support the pelvic organs and control urine flow. How Kegel Exercises Are Done Try each of the Kegel exercises described below. When youre doing them, try not to move your leg, buttock, or stomach muscles. While youre urinating, try to stop the flow of urine. Start and stop it as often as you can. Contract as if you were stopping your urine stream, but do it when youre not urinating. Tighten your rectum as if trying not to pass gas. Contract your anus, but dont move your buttocks. Helpful Hints Do your Kegels as often as you can. The more you do them, the faster youll feel the results. Pick an activity you do often as a reminder. For instance, do your Kegels every time you sit down. Tighten your pelvic floor before you sneeze, get up from a chair, cough, laugh, or lift. This protects your pelvic floor from injury and can help prevent urine leakage. Try to hold each Kegel for a slow count to five. You probably wont be able to hold them for thatlong at first, but keep practicing. It will get easier as your pelvic floor gets stronger. Eventually, special weights that you place in your vagina may be recommended to help make your Kegels even more effective. Karine Patient Education Copyright 2009 - 2010 Karine except where otherwise noted. Here are some helpful tips for your urinary incontinence: (This education is for all patients over 65 regardless of symptoms) Practice Kegel exercises Use the restroom every 2 hours throughout the day Limit caffeine, alcohol, spicy foods, and acidic foods Keep a bladder diary Limit fluid intake 3-4 hours before bed Lose weight Prevent constipation Take fluid pills at a time when can get to the bathroom quickly Control sugar better if diabetic Limit fluid intake to 60 oz. per day Any questions, please feel free to contact our office. Diabetes: Keeping Feet Healthy Inspect your feet every day for signs of a problem. Diabetes can damage nerves in your feet and cause neuropathy. This condition makes it hard for you to feel injuries or sore spots. Diabetes can also change blood flow, making it harder for small problems, like a blister, to heal properly. In fact, minor injuries can quickly become serious infections that send you to the hospital. Practice self-care to protect your feet and keep them healthy. Take Special Care Inspect your feet daily for problems such as redness, blisters, cracks, dry skin, or numbness. Use a mirror to see the bottoms of your feet. Or, ask for help. Manage your diabetes. Monitor and control your blood sugar. Take all your medications as prescribed. Avoid walking barefoot, even indoors. Wash your feet with warm water and mild soap. Dry well, especially between toes. Dont treat corns or calluses yourself. Talk to your doctor or community aide (a doctor who specializes in foot care) if you need assistance trimming your toenails. Use moisturizing cream or lotion if you have dry skin, but dont use it between toes. Dont use heating pads on your feet. If you have neuropathy, you could get a burn and not feel it. Stop smoking. Smoking restricts blood flow and can make it harder for wounds to heal. Have Regular Checkups Foot problems can develop quickly. So be sure to follow your healthcare teams schedule for regular checkups. During office visits, take off your shoes and socks as soon as you get in the exam room. Ask your healthcare provider to examine your feet for problems. This will make it easier to find and treat small skin irritations before they get worse. Regular checkups can also help keep track of the blood flow and feeling in your feet. If you have neuropathy, you may need to have checkups more often. Wear Proper Footwear Wearing proper footwear is very important. If areas of your feet have been damaged by too much pressure, your healthcare provider may recommend changing your footwear. In some cases, avoiding high heels or tight work boots may be all thats needed. Or, your healthcare provider may recommend special shoes or custom inserts. These help protect your feet and keep existing irritations from getting worse. If you need special footwear, ask your healthcare provider if you qualify for [employer] diabetic shoe program. Make Sure Shoes and Socks Fit Any pair of shoes--new or old--should feel comfortable as soon as you put them on. There shouldnt be any rubbing when you walk. Wear the right shoe for any activity. For instance, a running shoe is designed to keep your feet injury-free while jogging. Buy shoes at the end of the day, when your feet are larger. Make sure they provide support without feeling too loose. Make sure your socks fit, t oo. Wear soft, seamless, well-padded socks for activity. Cotton or microfiber socks are best to help to absorb sweat. To protect your feet, avoid shoes that are open-toed or open-heeled. If you have questions about what kinds of shoes and socks are best, talk to your healthcare team. Get Regular Exercise Regular exercise improves blood flow in your feet. It also increases foot strength and flexibility.Gentle exercises, like walking or riding a stationary bicycle, are best. You can also do special foot exercises. Just be sure to talk with your healthcare provider before starting any exercise program. Also mention if any exercise causes pain, redness, or other signs of foot problems. Note: If you have any kind of break in the skin of your foot or ankle, keep the area clean. Then call your doctor--especially if the area doesnt appear to be healing. 8425-8107 [employer], [address] [place] [address]. All rights reserved. This information is not intended as a substitute for professional medical care. Always follow your healthcare professional's instructions. documented in this encounter Progress Notes * Vlad Grant MD - 05/31/2023 12:15 PM EST Subjective: Margaret Chapman is a 68 year old female here today for Chief Complaint Patient presents with Status Check Return in 4 months Here for routine recheck. Significant family-related stressors continue. Financial issues as well. Continues with issues with tremor. Diabetes Glaucoma ([place]) - ? From paxlovid -several procedures [place] Past Medical History: Diagnosis Date Allergic rhinitis [...] Procedure Laterality Date EXPLORATION OF ABDOMEN 1986 [place] LAPAROSCOPY; CHOLECYSTECTOMY N/A 12/14/2017 LAPAROSCOPIC CHOLECYSTECTOMY performed by Christian Vanessa MD at OR [facility] REMOVE TONSILS & ADENOIDS, UNDER 12 Tonsillectomy/Adenoids,<12 Y/O STRESS TREADMILL 1996 treadmill normal Review of patient's allergies indicates: Allergen Reactions Sulfa Antibiotics Current Outpatient Medications Medication Sig Dispense Refill [...] Capsule before bedtime. 34 Capsule 5 FreeStyle Clifford Lite w/Device Kit USE ONCE A DAY [...] mouth in the morning. 90 Tablet 3 No current facility-administered medications for this visit. Objective: BP 128/64 | Pulse 81 | Temp 36.7 C (98 F) (Temporal Artery) | Resp 18 | Ht 1.707 m (5' 7.2") | Wt 68.2 kg (150 lb 6.4 oz) | LMP 08/30/2008 | SpO2 96% | BMI 23.42 kg/m | BSA 1.8 m GEN: NAD HEENT: Benign NECK: Supple with no LAD, TM, JVD CHEST: CTA B CV: RRR ABD: Soft, NT/ND, No HSM, NABS EXT: No c,c,e Assessment and Plan: Risk and functional assessment (Primary) - DIABETES FOOT EXAM Type 2 diabetes mellitus with hemoglobin A1c goal of less than 7.0% (HCC) - HEMOGLOBIN A1C; Future; Expected date: 06/01/2023 - COMPREHENSIVE METABOLIC PANEL; Future; Expected date: 06/01/2023 - TSH WITH FREE T4 IF INDICATED; Future; Expected date: 06/01/2023 Tremor - TSH WITH FREE T4 IF INDICATED; Future; Expected date: 06/01/2023 HTN, goal below 140/90 Diabetes mellitus without complication (HCC) Gastroesophageal reflux disease, unspecified whether esophagitis present Other orders - dilTIAZem HCl ER Coated Beads 180 MG Oral Capsule Extended Release 24 Hour (Cardizem CD); Take 1 Capsule by mouth in the morning. Follow Up: Return in about 4 months (around 09/29/2023) for recheck - 4 months or soonest after.. | For: recheck - 4 months or soonest after. 45 min with pt and chart review. Vlad Grant MD * Spring Soriano LPN - 05/31/2023 11:51 AM EST DM Foot Exam completed today. Provider aware. Spring Soriano LPN Socks and Shoes Removed for Annual Diabetic Foot Screening RIGHT FOOT: No Reddened, Cracking, Or Open Areas Noted. RIGHT Dorsalis Pedis Pulse: Palpable RIGHT Posterior Tibial Pulse: Palpable RIGHT Monofilament:Patient reports feeling monofilament pressure on plantar surface of foot LEFT FOOT: No Reddened, Cracking or Open Areas Noted. LEFT Dorsalis Pedis Pulse: Palpable LEFT Posterior Tibial Pulse: Palpable LEFT Monofilament:Patient reports feeling monofilament pressure on plantar surface of foot Do you need diabetic shoes: No documented in this encounter Nursing Notes * Spring Soriano LPN - 05/31/2023 11:52 AM EST The patient has been properly identified by confirmation of name and date of . Chief Complaint Patient presents with Status Check Return in 4 months documented in this encounter Plan of Treatment Upcoming Encounters Date Type Department Care Team (Late st Contact Info) Description 09/30/2023 3:40 PM EDT Office Visit [facility] [address] [place] [address] Vlad Grant MD [address] [place] [address] 01/25/2024 11:20 AM EDT Office Visit Neurology [facility] [address] [place] [address] Reji Smith MD [address], [place] [id number] 06/12/2024 3:00 PM EST Cardiac Studies Cardiac Studies, [facility] [address] [facility] [place] [address] Scheduled Orders Name Type Priority Associated Diagnoses Orde r Schedule HEMOGLOBIN A1C Lab Routine Type 2 diabetes mellitus with hemoglobin A1c goal of less than 7.0% ([facility]) Expected: 06/01/2023, Expires: 05/30/2024 COMPREHENSIVE METABOLIC PANEL Lab Routine Type 2 diabetes mellitus with hemoglobin A1c goal of less than 7.0% (HCC) Expected: 06/01/2023, Expires: 05/30/2024 TSH WITH FREE T4 IF INDICATED Lab Routine Type 2 diabetes mellitus with hemoglobin A1c goal of less than 7.0% (HCC) Tremor Expected: 06/01/2023, Expires: 05/30/2024 Health Maintenance Due Date Last Done Comments Diabetic Eye Exam 1973 Hepatitis C Screening 1973 COLONOSCOPY-EVERY 5 YRS AGES 18-100 09/23/2009 09/23/2004, 07/12/2000 Hepatitis B (1 of 3 - Risk 3-dose series) 2014 Zoster Vaccines (2 of 3) 04/07/2016 02/11/2016 DTaP,Tdap,and Td Vaccines (2 - Td or Tdap) 09/12/2018 09/12/2008, 02/14/1997 Depression Screening 03/28/2020 03/28/2019 *BISPHONATE OR OTHER ACCEPTABLE MEDICATION NEEDED FOR OSTEOPOROSIS (REFER TO SMARTSET #1146) 12/07/2021 COVID-19 Vaccine (2022- season) 2023 02/16/2022, 03/12/2021, 08/27/2020, Additional history exists HbA1c 03/27/2023 09/24/2022, 12/08, 07/02/2005 DXA Scan 09/09/2023 09/08/2021, 09/07, 12/09/2015 GFR 09/25/2023 09/24/2022, 01/09, 09/02/2020, Additional history exists Albumin/Creatinine Ratio 10/13/2023 10/12/2022, 01/09 Mammogram 05/20/2024 05/20/2023, 11/08, 01/15/2016, Additional history exists Diabetic Foot Exam 05/31/2024 05/31/2023 Lipid Panel 09/25/2027 09/24/2022, 12/08, 01/29/2021, Additional history exists VITAMIN D LEVEL ONCE IN A LIFETIME-USE SMARTSET# [id number] Completed 04/23/2016, 12/28/2013, 08/08/2008 Pneumococcal Vaccine: 65+ Years Completed 04/20/2022, 03/12/2021 Influenza Vaccine (FLU shot) Completed 02/2023, 06/26/2020, 02/11/2016, Additional history exists GARDASIL-HPV IMMUNIZATION SERIES Aged Out No longer eligible based on patient's age to complete this topic MENINGOCOCCAL (MENACTRA/MENVEO) Aged Out No longer eligible based on patient's age to complete this topic documented as of this encounter Medical Devices Not on filedocumented as of this encounter Visit Diagnoses Diagnosis Risk and functional assessment- Primary Screening for unspecified condition Type 2 diabetes mellitus with hemoglobin A1c goal of less than 7.0% (HCC) Tremor Abnormal involuntary movements HTN, goal below 140/90 Unspecified essential hypertension Diabetes mellitus without complication (HCC) Type II or unspecified type diabetes mellitus without mention of complication, not stated as uncontrolled Gastroesophageal reflux disease, unspecified whether esophagitis present documented in this encounter Care Teams Group Cio Relationship Specialty Start Date End Date Vlad Grant MD [address] [place] [address] PCP - General 02/26/00 documented as of this encounter
--- OUTSIDE RECORDS SUMMARY | 2023-08-05 12:00 | External Medical Summary | Summary of Care ---
Author Name Unknown Organization [facility] Address [address] [place] [address] Phone [phone] Care Team Providers Care Script Manager Name Role Phone Vlad Grant MD Primary Care Provider [phone]- [phone] Encounter Details Date Type Department Care Team (Late st Contact Info) Description 06/07/2023 Orders Only PATIENT PORTAL DO NOT DELETE THIS DEPT USED BY [place] MARSH [address] Allergies Active Allergy Reactions Criticality Noted Date Comments Sulfa Antibiotics 07/24/2002 documented as of this encounter (statuses as of 06/07/2023) Medications Medication Sig Dispensed Refills Start Date [...] bedtime. 34 Capsule 5 06/15/2022 Active FreeStyle [place] Lite w/Device Kit USE ONCE A DAY TO CHECK BLOOD SUGAR 0 07/01/2022 Active FreeStyle Lite Test In Vitro Strip USE ONE TEST STRIP TO TEST BLOOD SUGAR DAILY 0 06/25/2022 Active FreeStyle Lancets USE ONE LANCET TO TEST BLOOD SUGAR DAILY 0 05/01/2022 Active Vilazodone HCl 20 MG Oral Tablet (Viibryd) 0 07/24/2022 Act vijaya clonazePAM 1 MG Oral Tablet (KlonoPIN)Indications :Excessive physiologic tremor Take half a tablet in the morning, half a tablet at noon, 1 tablet at bedtime. 60 Tablet 2 10/20/2022 Active Restasis 0.05 % Ophthalmic Emulsion instill 1 drop into both eyes twice a day 0 10/27/2022 Active Propranolol HCl ER 60 MG Oral Capsule Extended Release 24 Hour (Inderal LA)Indications:Essent ial tremor Take 1 Capsule by mouth in the morning. 90 Capsule 3 05/25/2023 Active Primidone 250 MG Oral Tablet (Mysoline)Indications :Essential tremor Take 1 Tablet by mouth in the morning and 1 Tablet before bedtime. 180 Tablet 3 05/25/2023 Active dilTIAZem HCl ER Coated Beads 180 MG Oral Capsule Extended Release 24 Hour (Cardizem CD) Take 1 Capsule by mouth in the morning. 90 Capsule 1 06/01/2023 Active documented as of this encounter (statuses as of 06/07/2023) Active Problems Problem Noted Date Diagnosed Date Major depressive disorder wi th single episode, in partial remission 09/21/2022 Diabetes mellitus without complication Osteoporosis without current pathological fractu re 11/16/2018 Gastroesophageal reflux disease 11/16/2018 HTN, goal below 140/90 07/01/2018 Tremor 02/09/2011 Allergic rhinitis 01/12/2003 COMMON MIGRAINE WITHOUT MENTION OF INTRACTABLE M IGRAINE Esotropia documented as of this encounter (statuses as of 06/07/2023) Resolved Problems Problem Noted Date Diagnosed Date [...] as of this encounter (statuses as of 06/07/2023) Immunizations Name Administration Dates Next Due COVID-19 [...] Care Team (Late st Contact Info) Description 06/09/2023 1:00 PM EST Cardiac Studies [facility] [address] 08/13/2023 10:00 AM EDT Office [facility]iology[facility] [address] Celestino Dan PA-C [address] [facility] [address] 09/30/2023 3:40 PM EDT Office Visit [facility] [address] [place] [address] Vlad Grant MD [address] [place] [address] 01/25/2024 11:20 AM EDT Office Visit Neurology [facility] [address] [place] [address] Reji Smith MD [address] [place] [address] Health Maintenance Due Date Last Done Comments [...] D LEVEL ONCE IN A LIFETIME-USE SMARTSET# [id number] Completed 04/23/2016, 12/28/2013, 08/08/2008 Pneumococcal Vaccine: 65+ [...] filedocumented as of this encounter Care Teams Script Manager Relationship Specialty Start Date End Date Vlad Grant MD [address] [place] [address] PCP - General 02/26/00 documented as of this encounter
--- OUTSIDE RECORDS SUMMARY | 2023-08-05 12:00 | External Medical Summary | Summary of Care ---
Author Name Unknown Organization [facility] Address [address] [place] [address] Phone [phone] Care Team Providers Care Elephant Keeper Name Role Phone Vlad Grant MD Primary Care Provider [phone]- [phone] Reason for Referral * Precert (Within 10 days (routine)) - Authorized Specialty Diagnoses / Procedures Referred By Contac t Referred To Contact Cardiac Studies Diagnoses HTN, goal below 140/90 Dyslipidemia, goal LDL below 70 Nonrheumatic mitral valve regurgitation Asymptomatic bilateral carotid artery stenosis Procedures ECHO, COMPLETE (2D), TRANS-THORACIC Alise Schrader CRNP [address] [place] [address] Referral ID Status Reason Start Date Expiration Date V isits Requested Visits Authorized [id number] Authorized Precert 06/12/2024 999 999 Reason for Visit * Reason Comments Follow Up Encounter Details Date Type Department Care Team (Late st Contact Info) Description 06/10/2023 1:30 PM EST Office Visit Cardiology, [facility] [address] [place] [address] Alise Schrader CRNP [address] [place] [address] Nonrheumatic mitral valve regurgitation*; HTN, goal below 140/90; Dyslipidemia, goal LDL below 70; Asymptomatic bilateral carotid artery stenosis Allergies Active Allergy Reactions Criticality Noted Date Comments Sulfa Antibiotics 07/24/2002 documented as of this encounter (statuses as of 06/10/2023) Medications Medication Sig Dispensed Refills Start Date [...] bedtime. 34 Capsule 5 06/15/2022 Active FreeStyle [place] Lite w/Device Kit USE ONCE A DAY [...] the morning. 90 Tablet 3 06/10/2023 Active Atorvastatin Calcium 20 MG Oral Tablet (Lipitor) take 1 tablet by mouth once daily 90 Tablet 3 05/06/2022 06/10/2023 Discontinued (Refill) documented as of this encounter (statuses as of 06/10/2023) Active Problems Problem Noted Date Diagnosed Date Major depressive disorder wi th single episode, in partial remission 09/21/2022 Diabetes mellitus without complication Osteoporosis without current pathological fractu re 11/16/2018 Gastroesophageal reflux disease 11/16/2018 HTN, goal below 140/90 07/01/2018 Tremor 02/09/2011 Allergic rhinitis 01/12/2003 COMMON MIGRAINE WITHOUT MENTION OF INTRACTABLE M IGRAINE Esotropia documented as of this encounter (statuses as of 06/10/2023) Resolved Problems Problem Noted Date Diagnosed Date Resolved Date Chronic kidney disease, stage 3a 09/17/2020 09/21/2022 Overview: Per CKD protocol Polyneuropathy in other dise ases classified elsewhere 07/01/2020 09/21/2022 Major depressive disorder wi th single episode, in full remission 07/01/2020 09/21/2022 Nonspecific abnormal electro cardiogram (ECG) (EKG) 09/28/2019 09/21/2022 PAIN IN LIMB, LEFT MORRISON 11/22/2007 06/12/2017 ADVANCE DIRECTIVE INFORMATION 10/08/2004 10/15/2017 Overview: given to pt Mitral valve disorder 2018 Major depressive disorder Overview: ICD-10 update of inactive term DIABETES IN PREG-UNSPEC 07/08 PRESCRIP-ORAL CONTRACEPT 12/2017 documented as of this encounter (statuses as of 06/10/2023) Immunizations Name Administration Dates Next Due COVID-19 mRNA, LNP-s, No Pre serve, 2-Dose Series ([employer]) 07/30/2020 Seasonal Influenza, Quadriva lent, No Preserve, [...] Sign Reading Time Taken Comments Blood Pressure 100/60 06/10/2023 1:36 PM EST Pulse 60 06/10/2023 1:36 PM EST Temperature - - Respiratory Rate - - Oxygen Saturation 97% 06/10/2023 1:36 PM EST Inhaled Oxygen Concentration - - Weight 69.4 kg (153 lb) 06/10/2023 1:36 PM EST Height - - Body Mass Index 23.82 05/31/2023 11:52 AM EST documented in this [...] as of this encounter Progress Notes * Macrina, Alise SANTO Steele - 06/10/2023 1:30 PM EST Cardiology Outpatient Visit 06/10/2023 Primary Short Goods Drier: Dr. Bardales Past medical history: Posterior mitral valve prolapse with moderate MR (2-3+), stable per echo 03/2021, 05/2022, & 05/2023 Hypertension Abnormal baseline EKG with incomplete left bundle branch block versus left ventricular hypertrophy with with QRS widening and repolarization abnormality Preserved LV systolic function with abnormal septal motion consistent with IVCD per most recent echo Mild atherosclerotic carotid plaque Dyslipidemia Tremors-- follows with a motion specialist- on propranolol HPI 68-year-old female presenting to the cardiology office today in routine follow- up. Was last evaluated by Peyton Barr PA-C approximately 1 year ago. Patient carries a history of posterior mitral valve prolapse with moderate MR. Most recent echocardiogram dated 06/09/2023 revealed stable findings. Mitral insufficiency slightly increased but still deemed moderate. Otherwise, LVEF preserved at 55-59%. Wall motion consistent with a left bundle branch block. Today the patient presents feeling generally well however she noted an episode of sharp stabbing chest discomfort under her left breast while she was salting her driveway last month. Pain has not returned. Will occasionally have some mild dyspnea however attributes this to deconditioning as she is not very active throughout the day. Denies palpitations. No orthopnea or PND. Does have some mild lower extremity edema at the end of the day however this is not appreciated on exam. Patient is compliant with all medications. Current Outpatient Medications Medication Sig Dispense Refill [...] Capsule before bedtime. 34 Capsule 5 FreeStyle [place] Lite w/Device Kit USE ONCE A DAY [...] Procedure Laterality Date EXPLORATION OF ABDOMEN 1986 [place] LAPAROSCOPY; CHOLECYSTECTOMY N/A 12/14/2017 LAPAROSCOPIC CHOLECYSTECTOMY performed by Christian Vanessa MD at [facility] REMOVE TONSILS & ADENOIDS, UNDER 12 Tonsillectomy/Adenoids,<12 Y/O STRESS TREADMILL 1996 treadmill normal Social History Tobacco Use Smoking status: Never Smokeless tobacco: Never Substance Use Topics Alcohol use: No Drug use: No Review of patient's allergies indicates: Allergen Reactions Sulfa Antibiotics Review of Systems: See HPI for pertinent positives. All others negative, other than those noted in HPI. Physical Exam BP 100/60 | Pulse 60 | Wt 69.4 kg (153 lb) | LMP 08/30/2008 | SpO2 97% | BMI 23.82 kg/m | BSA 1.81 m General: No acute distress. A+Ox3. HEENT: Normocephalic. Atraumatic. Conjunctiva and sclera clear. NECK: No carotid bruits. No JVD. Carotid upstrokes are brisk. Heart: RRR. S1 and S2 noted. +2/6 systolic murmur. Lungs: Clear to auscultation. No wheezes, rhonchi, rales. Abdomen: Normal bowel sounds. Soft. Nontender. No masses or organomegaly. No abdominal bruits. Extremities: No edema. No clubbing or cyanosis. Pulses: radial=2/4, posterior tibial=2/4, dorsalis pedis = 2/4. NEURO: No focal deficits. PSYCH: Normal. Lab data/imaging study review: Echo 06/09/2023 The examination is adequate to evaluate the referral indication. The left ventricular cavity size is normal. The LV wall thickness is mildly increased (concentric). The septal motion is abnormal consistent with intrventricular conduction delay. The regional left ventricular wall motion is otherwise normal. The qualitative LV ejection fraction is 55-59% (normal). The left atrium is mildly enlarged (35-41 ml/m^2). The mitral valve leaflets thickness is moderately increased. There is mild posterior mitral leaflet prolapse. Moderate 2-3+ mitral regurgitation is present. Moderate tricuspid regurgitation is present. In comparison to prior study of June 04, 2022 degree of mitral insufficiency has increased slightly Impression/Plan: This is a 68 year old female who is being evaluated in the cardiology office for ongoing care/risk management for MVP with moderate MR, HTN and HLD. 1. Nonrheumatic mitral valve regurgitation -Posterior mitral valve prolapse with moderate MR (2-3+), stable per echo 03/2021 and 05/2022, 05/2023 -Euvolemic on exam. 1. Repeat resting echo in 1 year prior to follow up. 2. Patient to alert the office with symptoms of shortness of breath/ fluid retention. 2. HTN, goal below 140/90 -Controlled. 1. Continue Losartan, diltiazem, and propanolol as ordered. 3. Dyslipidemia, goal LDL below 70 -Controlled. LDL 54. 1. Continue Lipitor 20 mg daily -- Refill provided 4. Carotid stenosis -Mild atherosclerosis of the BL carotid arteries Repeat carotid duplex to reassess. Planning on having repeat blood work with PCP in the spring. The patient agrees to the above plan and will call with additional questions or concerns. ER with all emergencies advised. Follow-up: Return in about 1 year (around 06/10/2024). | Check-out note: Schedule carotid duplex. Echo prior to follow up. TK I spent a total of 40 minutes on the date of service in preparation, delivery, and documentation ofthe care provided to Margaret Chapman excluding any time spent in the performance of separately billed services. SANTO Washburn, Department of Cardiology This chart was completed in part utilizing [employer] Speech Voice Recognition Software. Grammatical errors, random word insertions, prounoun errors, and incomplete sentences are an occasional consequence of this system due to software limitations, ambient noise, and hardware issues. Any formal questions or concerns about the content, text, or information contained within the body of this dictation should be directly addressed to the provider for clarification. documented in this encounter Nursing Notes * Elidia Childs CMA - 06/10/2023 1:33 PM EST Examination Room: 7 Name: Margaret Chapman Date of : (1955) Reason for Visit: 1yr Interim Hospitalization(s): none Problems/Concerns: denied Chest Pain/SOB: denied My [facility] is a way you can talk to your provider online through e-mail. Would you like to sign up? I can activate it for you? ALREADY ACTIVE Patient was instructed to not get up on the exam table until directed and assisted by their provider; patient is to remain seated in the chair/ wheelchair/ exam table for fall prevention and safety reasons. Patient is aware to have assistance to step down off exam table with personnel. Patient voiced full comprehension of instructions. documented in this encounter Plan of Treatment Upcoming Encounters Date Type Department Care Team (Late st Contact Info) Description 06/14/2023 3:30 PM EST Imaging Vascular Lab, [facility] 2[facility], [address] [place] [address] 09/30/2023 3:40 PM EDT Office Visit [place] [address] [address] [facility] [address] Vlad Grant MD [address] [place] [address] 01/25/2024 11:20 AM EDT Office Visit Neurology [facility] [address] [place] [address] Reji Smith MD [address] [place] [address] 06/12/2024 3:00 PM EST Cardiac Studies [facility] [address] [facility] [address] Scheduled Orders Name Type Priority Associated Diagnoses Orde r Schedule EKG EKG Routine HTN, goal below 140/90 Dyslipidemia, goal LDL below 70 Nonrheumatic mitral valve regurgitation Asymptomatic bilateral carotid artery stenosis Ordered: 06/10/2023 ECHO, COMPLETE (2D), TRANS-THORACIC Echocardiology Routine HTN, goal below 140/90 Dyslipidemia, goal LDL below 70 Nonrheumatic mitral valve regurgitation Asymptomatic bilateral carotid artery stenosis Expected: 06/12/2024, Expires: 07/08/2025 VASC DUPLEX CAROTID BILAT Medical Imaging Routine HTN, goal below 140/90 Dyslipidemia, goal LDL below 70 Nonrheumatic mitral valve regurgitation Asymptomatic bilateral carotid artery stenosis Expected: 06/10/2023, Expires: 07/08/2024 CBC Lab Routine HTN, goal below 140/90 Dyslipidemia, goal LDL below 70 Nonrheumatic mitral valve regurgitation Asymptomatic bilateral carotid artery stenosis Expected: 06/10/2023, Expires: 06/10/2024 Health Maintenance Due Date Last Done Comments [...] D LEVEL ONCE IN A LIFETIME-USE SMARTSET# [id number] Completed 04/23/2016, 12/28/2013, 08/08/2008 Pneumococcal Vaccine: 65+ [...] as of this encounter Visit Diagnoses Diagnosis Nonrheumatic mitral valve regurgitation- Primary HTN, goal below 140/90 Unspecified essential hypertension Dyslipidemia, goal LDL below 70 Other and unspecified hyperlipidemia Asymptomatic bilateral carotid artery stenosis Occlusion and stenosis of multiple and bilateral precerebral arteries without mention of cerebral infarction documented in this encounter Care Teams Elephant Keeper Relationship Specialty Start Date End Date Vlad Grant MD [address] [place] [address] PCP - General 02/26/00 documented as of this encounter"
--- OUTSIDE RECORDS SUMMARY | 2023-08-05 12:00 | External Medical Summary | Summary of Care ---
Author Name Unknown Organization [facility] Address [address] [place] [address] Phone [phone] Care Team Providers Care Occupational Health Nurse Name Role Phone Vlad Grant MD Primary Care Provider [phone]- [phone] Reason for Visit * Reason Onset Date Comments Advice 03/24/2023 Encounter Details Date Type Department Care Team (Late st Contact Info) Description 03/24/2023 Telephone Neurology, [place] [address] [place] [address] Specified, Z No Resource [address] [place] [address] Advice Allergies Active Allergy Reactions Criticality Noted Date Comments Sulfa Antibiotics 07/24/2002 documented as of this encounter (statuses as of 03/29/2023) Medications Medication Sig Dispensed Refills Start Date [...] MG Oral Tablet 0 06/04/2022 Active FreeStyle [place] Lite w/Device Kit USE ONCE A DAY [...] as of this encounter (statuses as of 03/29/2023) Active Problems Problem Noted Date Diagnosed Date Major depressive disorder wi th single episode, in partial remission 09/21/2022 Diabetes mellitus without complication 3 Osteoporosis without current pathological fractu re 11/16/2018 Gastroesophageal reflux disease 11/16/2018 HTN, goal below 140/90 07/01/2018 Tremor 02/09/2011 Allergic rhinitis 01/12/2003 COMMON MIGRAINE WITHOUT MENTION OF INTRACTABLE M IGRAINE Esotropia documented as of this encounter (statuses as of 03/29/2023) Resolved Problems Problem Noted Date Diagnosed Date [...] as of this encounter (statuses as of 03/29/2023) Immunizations Name Administration Dates Next Due COVID-19 mRNA, LNP-s, No Pre serve, 2-Dose Series ([employer]) 07/30/2020 Seasonal Influenza, Quadriva lent, No Preserve, [...] 05/25/2023 3:00 PM EST Office Visit [facility] [address] [place] [address] Reji Smith MD [address] [place] [address] 05/31/2023 11:40 AM EST Office Visit [facility] [address] [place] [id number] Vlad Grant MD [address] [place] [address] 06/09/2023 1:00 PM EST Cardiac Studies Cardiac Studies, [facility] [address] [place] [address] 06/10/2023 2:30 PM EST Office Visit Cardiology, [facility] [address] [place] [address] Garcia Bardales, [address] [facility] [address] Health Maintenance Due Date Last Done Comments [...] D LEVEL ONCE IN A LIFETIME-USE SMARTSET# [id number] Completed 04/23/2016, 12/28/2013, 08/08/2008 Pneumococcal Vaccine: 65+ Years Completed 04/20/2022, 03/12/2021 GARDASIL-HPV IMMUNIZATION SERIES Aged Out No longer eligible based on patient's age to complete this topic MENINGOCOCCAL (MENACTRA/MENVEO) Aged Out No longer eligible based on patient's age to complete this topic documented as of this encounter Medical Devices Not on filedocumented as of this encounter Care Teams Occupational Health Nurse Relationship Specialty Start Date End Date Vlad Grant MD [address] [place] [address] PCP - General 02/26/00 documented as of this encounter
--- OUTSIDE RECORDS SUMMARY | 2023-08-05 12:00 | External Medical Summary | Summary of Care ---
Author Name Unknown Organization [facility] Address [address] [place] [address] Phone [phone] Care Team Providers Care Business Banker Name Role Phone Vlad Grant MD Primary Care Provider +1- [phone] Reason for Visit * Reason Onset Date Comments Test Results 06/15/2023 Encounter Details Date Type Department Care Team (Late st Contact Info) Description 06/15/2023 Telephone Cardiology, [facility] [address] [facility] [place] [address] lAise Schrader CRNP [address] [place] [address] Test Results Allergies Active Allergy Reactions Criticality Noted Date Comments Sulfa Antibiotics 07/24/2002 documented as of this encounter (statuses as of 06/15/2023) Medications Medication Sig Dispensed Refills Start Date [...] bedtime. 34 Capsule 5 06/15/2022 Active FreeStyle [place] Lite w/Device Kit USE ONCE A DAY [...] Active Atorvastatin Calcium 20 MG Oral Tablet (Lipitor)Indications: HTN, goal below 140/90,Dyslipidemia, goal LDL below 70,Nonrheumatic mitral valve regurgitation,Asympto matic bilateral carotid artery stenosis Take 1 Tablet by mouth in the morning. 90 Tablet 3 06/10/2023 Active documented as of this encounter (statuses as of 06/15/2023) Active Problems Problem Noted Date Diagnosed Date Major depressive disorder wi th single episode, in partial remission 09/21/2022 Diabetes mellitus without complication Osteoporosis without current pathological fractu re 11/16/2018 Gastroesophageal reflux disease 11/16/2018 HTN, goal below 140/90 07/01/2018 Tremor 02/09/2011 Allergic rhinitis 01/12/2003 COMMON MIGRAINE WITHOUT MENTION OF INTRACTABLE M IGRAINE Esotropia documented as of this encounter (statuses as of 06/15/2023) Resolved Problems Problem Noted Date Diagnosed Date [...] as of this encounter (statuses as of 06/15/2023) Immunizations Name Administration Dates Next Due COVID-19 [...] encounter Miscellaneous Notes * Telephone Encounter - Kanika Sawyer LPN - 06/15/2023 3:45 PM EST mychart * Telephone Encounter - Kanika Sawyer LPN - 06/15/2023 3:43 PM EST ----- Message from SANTO Boyd sent at 06/15/2023 8:24 AM EST ----- Carotid atherosclerosis stable, less than 50% bilaterally. No changes needed at this time. Will anticipate repeat carotid ultrasound in 2-3 years. documented in this encounter Plan of Treatment Upcoming Encounters Date Type Department Care Team (Late st Contact Info) Description 09/30/2023 3:40 PM EDT Office Visit [facility] [address] [facility] [address] Vlad Grant MD [address] [facility] [address] 01/25/2024 11:20 AM EDT Office Visit Neurology [facility] [place] [address] [facility] [place] [id number] Reji Smith MD [address] [facility] [place] [address] 06/12/2024 3:00 PM EST Cardiac Studies Cardiac Studies, [facility] [address] [facility] [place] [address] Health Maintenance Due Date [...] D LEVEL ONCE IN A LIFETIME-USE SMARTSET# [id number] Completed 04/23/2016, 12/28/2013, 08/08/2008 Pneumococcal Vaccine: 65+ [...] filedocumented as of this encounter Care Teams Business Banker Relationship Specialty Start Date End Date Vlad Grant MD [address] [place] [address] PCP - General 02/26/00 documented as of this encounter
--- OUTSIDE RECORDS SUMMARY | 2023-08-05 12:00 | External Medical Summary | Summary of Care ---
Author Name Unknown Organization [facility] Address [address] [place] [address] Phone [phone] Care Team Providers Care Direct Care Supervisor Name Role Phone Vlad Grant MD Primary Care Provider [phone]- [phone] Reason for Visit * Reason Onset Date Comments Health Maintenance 07/20/2023 Encounter Details Date Type Department Care Team (Late st Contact Info) Description 07/20/2023 Telephone [facility] [address] [place] [address] Vlad Grant MD [address] [place] [address] Health Maintenance Allergies Active Allergy Reactions Criticality Noted Date Comments Sulfa Antibiotics 07/24/2002 documented as of this encounter (statuses as of 07/20/2023) Medications Medication Sig Dispensed Refills Start Date [...] bedtime. 34 Capsule 5 06/15/2022 Active FreeStyle [place] Lite w/Device Kit USE ONCE A DAY [...] as of this encounter (statuses as of 07/20/2023) Active Problems Problem Noted Date Diagnosed Date Major depressive disorder wi th single episode, in partial remission 09/21/2022 Diabetes mellitus without complication Osteoporosis without current pathological fractu re 11/16/2018 Gastroesophageal reflux disease 11/16/2018 HTN, goal below 140/90 07/01/2018 Tremor 02/09/2011 Allergic rhinitis 01/12/2003 COMMON MIGRAINE WITHOUT MENTION OF INTRACTABLE M IGRAINE Esotropia documented as of this encounter (statuses as of 07/20/2023) Resolved Problems Problem Noted Date Diagnosed Date [...] as of this encounter (statuses as of 07/20/2023) Immunizations Name Administration Dates Next Due COVID-19 [...] encounter Miscellaneous Notes * Telephone Encounter - Sabra Loyd LPN - 07/20/2023 8:40 AM EDT Care Gaps Comprehensive Care Outreach Last Office/Telemedicine Visit: 05/31/2023 (in office), 10/12/2022 (telemedicine) Next Office Visit: 09/30/2023 Hemoglobin AIC Results: Lab Results Component Value Date/Time HEMOGLOBIN A1C - [facility] 6.8 (H) 09/24/2022 10:18 AM HEMOGLOBIN A1C - [facility] 6.8 (H) 12/26/2020 01:00 PM HEMOGLOBIN A1C - [facility] 5.6 07/02/2005 09:15 AM BP Readings from Last 1 Encounters: 06/10/23 100/60 Reviewed Health Maintenance below: Health Maintenance Topic Date Due Diabetic Eye Exam Never done Hepatitis C Screening Never done COLONOSCOPY-EVERY 5 YRS AGES 18-100 09/23/2009 Zoster Vaccines (2 of 3) 04/07/2016 DTaP,Tdap,and Td Vaccines (2 - Td or Tdap) 09/12/2018 Depression Screening 03/28/2020 *BISPHONATE OR OTHER ACCEPTABLE MEDICATION NEEDED FOR OSTEOPOROSIS (REFER TO SMARTSET #1146) Never done COVID-19 Vaccine ( - 2022- season) 2023 HbA1c 03/27/2023 Albumin/Creatinine Ratio 10/13/2023 DXA Scan 09/09/2023 GFR 09/25/2023 Labs already ordered Eye Colon done in [place]? Care Gap Outreach Action Taken: Left message documented in this encounter Plan of Treatment Upcoming Encounters Date Type Department Care Team (Late st Contact Info) Description 09/30/2023 3:40 PM EDT Office Visit [facility] [address] [facility] [place] [phone] Vlad Grant MD [address] [place] [address] 01/25/2024 11:20 AM EDT Office Visit Neurology [facility] [address] [place] [place] [address] Reji Smith MD [address] [facility] [id number] 06/12/2024 3:00 PM EST Cardiac Studies Cardiac Studies, [facility] [address] [facility] [place] [address] Health Maintenance Due Date Last Done Comments [...] D LEVEL ONCE IN A LIFETIME-USE SMARTSET# 37512 Completed 04/23/2016, 12/28/2013, 08/08/2008 Pneumococcal Vaccine: 65+ [...] filedocumented as of this encounter Care Teams Direct Care Supervisor Relationship Specialty Start Date End Date Vlad Grant MD [address] [place] [address] PCP - General 02/26/00 documented as of this encounter
--- OUTSIDE RECORDS SUMMARY | 2023-08-05 12:00 | External Medical Summary | Summary of Care ---
Author Name Unknown Organization [facility] Address [address] [place] [address] Phone [phone] Care Team Providers Care Income Tax Investigator Name Role Phone Vlad Montano MD Primary Care Provider [phone]- [phone] Reason for Visit * Reason Comments Return Neuro Encounter Details Date Type Department Care Team (Late st Contact Info) Description 05/25/2023 3:00 PM EST Office Visit Neurology [facility] [place] [address] [place] [address] Reji Smith MD [address] [place] [address] Essential tremor*; Excessive physiologic tremor Allergies Active Allergy Reactions Criticality Noted Date Comments Sulfa Antibiotics 07/24/2002 documented as of this encounter (statuses as of 05/25/2023) Medications Medication Sig Dispensed Refills Start Date [...] bedtime. 34 Capsule 5 06/15/2022 Active FreeStyle [place] Lite w/Device Kit USE ONCE A DAY [...] in the morning. 30 Tablet 11 04/20/2022 05/25/2023 Active Vilazodone HCl 20 MG Oral Tablet (Viibryd) 0 07/24/2022 Active dilTIAZem HCl ER Coated Beads 180 MG Oral Capsule Extended Release 24 Hour (Cardizem CD) take 1 capsule by mouth once daily 90 Capsule 1 10/01/2022 Active clonazePAM 1 MG Oral Tablet (KlonoPIN)Indicati [...] before bedtime. 180 Tablet 3 05/25/2023 Active Amoxicillin 500 MG Oral Tablet 0 06/04/2022 05/25/2023 Discontinued (Medication List Clean Up) Zonisamide 50 MG Oral Capsule (Zonegran)Indicati ons:Essential tremor Take 1 capsule per mouth in the evening 30 Capsule 5 07/28/2022 05/25/2023 Discontinued (Medication List Clean Up) Propranolol HCl ER 80 MG Oral Capsule Extended Release 24 Hour (Inderal LA)Indications:Ess ential tremor Take 1 Capsule by mouth in the morning. 30 Capsule 5 07/28/2022 05/25/2023 Discontinued (Medication/ Dose Changed) Primidone 50 MG Oral Tablet (Mysoline)Indicati ons:Essential tremor 4 tablets in the morning and 4 tablets in the evening 720 Tablet 4 12/01/2022 05/25/2023 Discontinued (Medication/ Dose Changed) documented as of this encounter (statuses as of 05/25/2023) Active Problems Problem Noted Date Diagnosed Date Major depressive disorder wi th single episode, in partial remission 09/21/2022 Diabetes mellitus without complication 3 Osteoporosis without current pathological fractu re 11/16/2018 Gastroesophageal reflux disease 11/16/2018 HTN, goal below 140/90 07/01/2018 Tremor 02/09/2011 Allergic rhinitis 01/12/2003 COMMON MIGRAINE WITHOUT MENTION OF INTRACTABLE M IGRAINE Esotropia documented as of this encounter (statuses as of 05/25/2023) Resolved Problems Problem Noted Date Diagnosed Date [...] as of this encounter (statuses as of 05/25/2023) Immunizations Name Administration Dates Next Due COVID-19 [...] Sign Reading Time Taken Comments Blood Pressure 118/68 05/25/2023 3:14 PM EST Pulse 116 05/25/2023 3:14 PM EST Temperature 35.9 C (96.6 F) 05/25/2023 3:14 PM ES T Respiratory Rate 18 05/25/2023 3:14 PM EST Oxygen Saturation 97% 05/25/2023 3:14 PM EST Inhaled Oxygen Concentration - - Weight 67.5 kg (148 lb 14.4 oz) 05/25/2023 3:14 PM EST Height - - Body Mass Index 23.18 12/02/2022 3:00 PM EDT documented in this encounter Functional Status Functional [...] as of this encounter Progress Notes * Reji Smith MD - 05/25/2023 3:12 PM EST 05/25/2023 3:12 PM Margaret Chapman 68 year old female Ref: VLAD MONTANO[[id number]] [address] [place] [address] (office) [phone] (fax) Asked by Vlad Montano MD to render opinion regarding management of essential tremors CC: Chief Complaint Patient presents with Return Neuro HPI: The patient was last seen 6 months ago. He has essential tremors which are aggravated by excessive physiologic tremors. We have her on low-dose clonazepam as needed for physiologic tremor component. She did not have any benefit with low-dose zonisamide which we stopped. She was on primidone 250 milligrams twice a day and propranolol 80 milligrams per day before she called me to get off propranolol. I instead suggested her to lower the propranolol dose and increase primidone to 250 milligrams twice a day. I also recommended a trial of Lavender oil capsules last time. Drinks 2 half cups of half caffeinated coffee. PAST MEDICAL HISTORY: Patient Active Problem List Diagnosis Date Noted Major depressive disorder with single episode, in partial remission (HCC) [F32.4] 09/21/2022 Diabetes mellitus without complication (HCC) [E11.9] 09/21/2022 Osteoporosis without current pathological fracture [M81.0] 11/16/2018 Gastroesophageal reflux disease [K21.9] 11/16/2018 HTN, goal below 140/90 [I10] 07/01/2018 Tremor [R25.1] 02/09/2011 Allergic rhinitis [J30.9] 01/12/2003 COMMON MIGRAINE WITHOUT MENTION OF INTRACTABLE MIGRAINE [G43.009] Esotropia [H50.00] MEDICATIONS: Current Outpatient Medications Medication Sig Dispense Refill Aspirin EC 81 MG Oral Tablet Delayed Release Take 1 Tablet by mouth in the morning. lamoTRIgine 25 MG Oral Tablet (LaMICtal) Take 1 Tablet by mouth in the morning and 1 Tablet before bedtime. Atorvastatin Calcium 20 MG Oral Tablet (Lipitor) take 1 tablet by mouth once daily 90 Tablet 3 Dicyclomine HCl 20 MG Oral Tablet (Bentyl) Take 1 Tablet by mouth. FLUoxetine HCl 40 MG Oral Capsule Take 1 Capsule by mouth in the morning and 1 Capsule before bedtime. 34 Capsule 5 Amoxicillin 500 MG Oral Tablet (Patient not taking: Reported on 11/24/2022) FreeStyle [place] Lite w/Device Kit USE ONCE A DAY TO CHECK BLOOD SUGAR FreeStyle Lite Test In Vitro Strip USE ONE TEST STRIP TO TEST BLOOD SUGAR DAILY FreeStyle Lancets USE ONE LANCET TO TEST BLOOD SUGAR DAILY Vilazodone HCl 20 MG Oral Tablet (Viibryd) Zonisamide 50 MG Oral Capsule (Zonegran) Take 1 capsule per mouth in the evening 30 Capsule 5 Propranolol HCl ER 80 MG Oral Capsule Extended Release 24 Hour (Inderal LA) Take 1 Capsule by mouthin the morning. 30 Capsule 5 dilTIAZem HCl ER Coated Beads 180 MG Oral Capsule Extended Release 24 Hour (Cardizem CD) take 1 capsule by mouth once daily 90 Capsule 1 clonazePAM 1 MG Oral Tablet (KlonoPIN) Take half a tablet in the morning, half a tablet at noon, 1 tablet at bedtime. 60 Tablet 2 Restasis 0.05 % Ophthalmic Emulsion instill 1 drop into both eyes twice a day Primidone 50 MG Oral Tablet (Mysoline) 4 tablets in the morning and 4 tablets in the evening 720 Tablet 4 No current facility-administered medications for this visit. ALLERGIES: Review of patient's allergies indicates: Allergen Reactions Sulfa Antibiotics Social History Socioeconomic History Marital status: Spouse name: Not on file Number of children: 3 Years of education: Not on file Highest education level: Not on file Occupational History Occupation: presently not working Tobacco Use Smoking status: Never Smokeless tobacco: Never Substance and Sexual Activity Alcohol use: No Drug use: No Sexual activity: Never Comment: Other Topics Concern Not on file Social History Narrative with [place] in 1994 at the age of 42. Has three children (30,28,24) in good health. Not currently working. Social Determinants of Health Financial Resource Strain: Not on file Food Insecurity: Not on file Transportation Needs: Not on file Physical Activity: Not on file Stress: Not on file Social Connections: Not on file Intimate Partner Violence: Not on file Housing Stability: Not on file Occupation: HIV risk factors: None FAMILY HISTORY Family History Problem Relation Age of Onset Allergies Mother Heart Disorder Father [place] age 68, [place] age 75 Diabetes Father Parkinsonism Father Hypertension Sister Allergies Sister Arthritis Grandmother (Maternal) Heart Disorder Grandfather (Maternal) pacemaker Tremor Grandfather (Paternal) Other (Tremor) Other Several members Breast Cancer No significant family history Family Status Relation Status Mo Alive Fa Sis Alive MGMA MGFA PGMA PGFA Raciel Alive Raciel Alive Raciel Alive Other (Not Specified) No history (Not Specified) LMP 08/30/2008 The patient is a 68 year old female who is well developed and appears to be their stated age. NEUROLOGIC EXAMINATION: Mental status: Intact higher integrative functions. Orientated to person, place, and time. Recent and remote memory functions are intact. Attention, concentration, language, and fund of knowledge arenormal. Judgment and insight are intact. Mood and affect are normal. Bilateral kinetic > postural tremor R>L, Some yes-yes hand tremor. IMPRESSION: Patient with suboptimally controlled essential tremors. Would benefit from a dose adjustment. I doubt that the propranolol caused her headaches. RECOMMENDATIONS: I will increase her Primidone to 250mg BID (first week will be a transition phase of 200mg in AM and 250mg at bedtime). She will start on a lower dose of Propranolol 60mg LA per day. She will try theLavender oil capsules (Calm24), will do more research about the Liftware device and get a speciallyweighted pen. She is not keen on doing DBS. I spent approximately 25 minutes with this patient greater than half the time was spent reviewing diagnosis, physical exam, and treatment. Thank-you for letting me participate in the care of this patient. Reji Smith MD Neurology [address] [address] Please send copy to requesting physician, Vlad Montano MD documented in this encounter Nursing Notes * Sameera Gómez LPN - 05/25/2023 3:14 PM EST Chief Complaint Patient presents with Return Neuro documented in this encounter Plan of Treatment Upcoming Encounters Date Type Department Care Team (Late st Contact Info) Description 05/31/2023 11:40 AM EST Office Visit [facility] [address] [place] [phone] Vlad Montano MD [address] [place] [address] 06/09/2023 1:00 PM EST Cardiac Studies Cardiac Studies, [facility] [address] [place] [address] 06/30/2023 1:30 PM EST Office Visit Cardiology, [facility] [address] [place] [address] Alise Schrader CRNP [address] [place] [address] 01/25/2024 11:20 AM EDT Office Visit Neurology [facility] [address] [place] [address] Reji Smith MD [address] [place] [address] Health Maintenance Due Date Last Done Comments [...] 05/20/2024 05/20/2023, 11/08, 01/15/2016, Additional history exists Lipid Panel 09/25/2027 09/24/2022, 12/08, 01/29/2021, Additional history exists VITAMIN D LEVEL ONCE IN A LIFETIME-USE SMARTSET# [id number] Completed 04/23/2016, 12/28/2013, 08/08/2008 Pneumococcal Vaccine: 65+ [...] as of this encounter Visit Diagnoses Diagnosis Essential tremor- Primary Essential and other specified forms of tremor Excessive physiologic tremor Essential and other specified forms of tremor documented in this encounter Care Teams Income Tax Investigator Relationship Specialty Start Date End Date Vlad Montano MD [address] [place] [address] PCP - General 02/26/00 documented as of this encounter
--- OUTSIDE RECORDS SUMMARY | 2023-08-05 12:00 | External Medical Summary | Summary of Care ---
Author Name Unknown Organization [facility] Address [address] [place] [address] Phone [phone] Care Team Providers Care Invasive Cardiovascular Technologist Name Role Phone Vlad Grant MD Primary Care Provider [phone]- [phone] Reason for Visit * Reason Onset Date Comments Advice 03/24/2023 Encounter Details Date Type Department Care Team (Late st Contact Info) Description 03/24/2023 Telephone Neurology, [place] [address] [place] [address] Specified, Z No Resource [address] [place] [address] Advice Allergies Active Allergy Reactions Criticality Noted Date Comments Sulfa Antibiotics 07/24/2002 documented as of this encounter (statuses as of 03/30/2023) Medications Medication Sig Dispensed Refills Start Date [...] MG Oral Tablet 0 06/04/2022 Active FreeStyle [place] Lite w/Device Kit USE ONCE A DAY [...] as of this encounter (statuses as of 03/30/2023) Active Problems Problem Noted Date Diagnosed Date Major depressive disorder wi th single episode, in partial remission 09/21/2022 Diabetes mellitus without complication 3 Osteoporosis without current pathological fractu re 11/16/2018 Gastroesophageal reflux disease 11/16/2018 HTN, goal below 140/90 07/01/2018 Tremor 02/09/2011 Allergic rhinitis 01/12/2003 COMMON MIGRAINE WITHOUT MENTION OF INTRACTABLE M IGRAINE Esotropia documented as of this encounter (statuses as of 03/30/2023) Resolved Problems Problem Noted Date Diagnosed Date [...] as of this encounter (statuses as of 03/30/2023) Immunizations Name Administration Dates Next Due COVID-19 mRNA, LNP-s, No Pre serve, 2-Dose Series (Sentrigo) 07/30/2020 Seasonal Influenza, Quadriva lent, No Preserve, IM 02/11/2016 Seasonal Influenza, Split, I IV3, With Preserve, Inj 06/26/2020,03/09/2010,03/01/2008, 003 TD - Tetanus/Diptheria (ADULT) 02/14/1997 TDAP (age 11 and older)(Adacel) 09/12/2008 Varicella [...] Telephone Encounter - Mercedes Kwok LPN - 03/30/2023 1:20 PM EST Spoke with patient and she is aware * Telephone Encounter - Mercedes Kwok LPN [...] 05/25/2023 3:00 PM EST Office Visit Neurology [facility] [address] [place] [address] Reji Smith MD [address] [place] [address] 05/31/2023 11:40 AM EST Office Visit [facility] [address] [place] [phone] Vlad Grant MD [address] [place] [address] 06/09/2023 1:00 PM EST Cardiac Studies [facility], [facility] [address] [facility] [place] [address] 06/10/2023 2:30 PM EST Office Visit [facility] [address] [facility] [address] [address], [address] [facility] [place] [address] Health Maintenance Due Date Last Done Comments [...] D LEVEL ONCE IN A LIFETIME-USE SMARTSET# 08861 Completed 04/23/2016, 12/28/2013, 08/08/2008 Pneumococcal Vaccine: 65+ Years Completed 04/20/2022, 03/12/2021 GARDASIL-HPV IMMUNIZATION SERIES Aged Out No longer eligible based on patient's age to complete this topic MENINGOCOCCAL (MENACTRA/MENVEO) Aged Out No longer eligible based on patient's age to complete this topic documented as of this encounter Medical Devices Not on filedocumented as of this encounter Care Teams Invasive Cardiovascular Technologist Relationship Specialty Start Date End Date Vlad Grant MD [address] [place] [address] PCP - General 02/26/00 documented as of this encounter
--- NOTE | 2023-08-05 12:20 | Electrocardiogram Report ---
Test Reason : Blood Pressure : / mmHG Vent. Rate : 073 BPM Atrial Rate : 073 BPM P-R Int : 186 ms QRS Dur : 098 ms QT Int : 406 ms P-R-T Axes : 009 -15 083 degrees QTc Int : 447 ms Normal sinus rhythm Normal ECG When compared with ECG of 26-JAN-2021 23:32, ND interval has decreased QRS duration has decreased Non-specific change in ST segment in Anterior leads T wave inversion less evident in Anterolateral leads QT has shortened Confirmed by Roshan Macias ([id number]) on 08/05/2023 12:20:34 PM Referred By: REFERRED SELF Confirmed By:Roshan Macias
--- NOTE | 2023-08-05 12:36 | Electrocardiogram Report ---
Test Reason : Blood Pressure : / mmHG Vent. Rate : 056 BPM Atrial Rate : 056 BPM P-R Int : 244 ms QRS Dur : 100 ms QT Int : 456 ms P-R-T Axes : 032 -20 070 degrees QTc Int : 440 ms Sinus bradycardia with 1st degree A-V block Cannot rule out Anterior infarct , age undetermined Abnormal ECG When compared with ECG of 04-AUG-2023 17:59, (unconfirmed) VA interval has increased Anterior infarct is now Present Confirmed by Roshan Macias ([id number]) on 08/05/2023 12:35:59 PM Referred By: REFERRED SELF Confirmed By:Roshan Macias
[2023-08-05] MEDS: ATROPINE SULFATE 0.1 MG/ML 10ML SYR IV ONE (13:04)
[2023-08-05] MEDS: DOBUTamine HCL 12.5 MG/ML 20 ML VIAL IV ONE (13:05)
[2023-08-05] MEDS: METOPROLOL TARTRATE 1 MG/ML VIAL IV ONE (13:05)
[2023-08-05] MEDS ORDERED: Nursing to Pharmacy Communication SCH (16:30)
[2023-08-05] MEDS: ACETAMINOPHEN 325 MG TAB PO PRN (19:00)
[2023-08-05] MEDS: clonazePAM 1 MG TAB PO SCH (20:40)
[2023-08-06 05:09] LABS: Hematocrit (blood only) 36.8 % (37.0-47.0); Hemoglobin 12.2 g/dl (12.0-16.0); Mean Corpuscular Hemoglobin 32.7 pg (25.0-34.0); Mean Corpuscular Hgb Conc 33.2 g/dL (32.0-36.0); Mean Corpuscular Volume 98.7 fL (80.0-100.0); Mean Platelet Volume 9.7 fL (9.4-12.4); Platelet Count 221 K/uL (130-400); RDW Standard Deviation 43.6 fL (36.4-46.3); Red Blood Count 3.73 M/uL (4.20-5.40)
[2023-08-06 05:29] LABS: BUN Creatinine Ratio 11.8 (10-20); Calcium 9.1 mg/dl (8.6-10.3); Creatinine Clr Calc Pharmacy 65.4 ml/min; Est GFR (African American) 92.8 ml/min; Magnesium 1.8 mg/dl (1.7-2.4); Phosphorus 3.3 mg/dl (2.5-4.9); Potassium 3.8 mmol/L (3.5-5.1)
[2023-08-06 05:47] LABS: Troponin I High Sensitivity 73.1 pg/ml (0-14)
--- NOTE | 2023-08-06 11:35 | CT Scan Report ---
CT OF THE HEAD WITHOUT CONTRAST CLINICAL HISTORY: forgetful. recently had episode of slurred speech COMPARISON STUDY: Head CT and CTA of the head January 27, 2021. CT DOSE: 625.8 mGy.cm TECHNIQUE: Helical axial images of the head were obtained without IV contrast. Automated exposure con trol was utilized for the study. A dose lowering technique was utilized adhering to the principles o f ALARA. FINDINGS: No acute intracranial hemorrhage, midline shift or mass effect is present. The ventricular system is unremarkable. The basal cisterns are patent. No extra-axial collections are present. There are no findings to suggest acute dural sinus thrombosis or acute territorial infarct. No significant calvarial abnormalities are present. There is a small air-fluid level within the right sphenoid sinus . IMPRESSION: No acute intracranial findings. ACT 112: Negative or not required by law. Electronically signed by: Milton Alonzo M.D. 08/06/2023 11:34 AM
--- NOTE | 2023-08-06 12:09 | Cardiology Progress Note ---
Date of Service August 06, 2023 Assessment & Plan (1) Chest pain: (2) Troponin level elevated: (3) Bronchitis: (4) Mitral valve prolapse determined by imaging: (5) Left bundle branch block: Plan Assessment: 68 year old female with recent bronchitis on oral antibiotics presents with sudden onset chest pain with no other associated symptoms. Mild elevation in troponin with flat trend, but prior history of abnormal baseline EKG. Plan: 1. Chest pain 2. Troponin level elevated 3. Bronchitis -Chest pain as noted with no other associated symptoms, no aggravating or alleviating factors. Abnormal EKG with known conduction concerns in the past including by not limited to Left BBB. not cited on most current EKG. Mild elevation in troponin with question of active ischemia vs demand secondary to recent acute URI/bronchitis. 4. Mitral valve prolapse -Known history, follows closely with OP cardiology. -Will obtain echo to reassess overall structure and function, wall motion abnormality. Continue current medication therapies at this time including propranolol and Losartan. Further recommendations as appropriate pending echo and stress test. 08/06/2023. Patient underwent dobutamine stress echocardiography on 08/05/2023. Study negative for ischemia. No cardiac symptoms during Rate related left bundle branch block observed with elevated heart rates. Once again discussed findings in detail with patient. No overt ischemia but diagnostic sensitivity reduced in the setting of conduction changes. Offered option of further imaging with cardiac catheterization. Will plan on proceeding as an outpatient in 3 weeks time. Will arrange Patient agreeable I do not feel troponin elevations reflect acute coronary syndrome Stable for discharge today Admission and Anticipated Discharge Date Admission Date: August 04, 2023 Subjective Patient was seen and examined, chart, medications, telemetry reviewed. No chest pain or discomfort overnight. No dizziness or lightheadedness. Ambulatory in room. Troponin still persistently elevated without associated EKG abnormality with EKG is unchanged from [address] of head performed last night due to chronic neurologic findings Results & Data Vital Signs (Past 12 Hours) Vital Signs Temp Pulse Pulse Resp BP Pulse Ox Pulse Ox 08/06/23 11:25 36.7 C 62 18 113/66 94 08/06/23 08:00 08/06/23 07:49 36.9 C 59 L 16 115/69 97 08/06/23 07:00 58 L 08/06/23 03:04 36.6 C 66 16 100/61 94 08/06/23 01:00 93 O2 Del Method O2 Del Method 08/06/23 11:25 Room Air 08/06/23 08:00 Room Air 08/06/23 07:49 Room Air 08/06/23 07:00 08/06/23 03:04 Room Air 08/06/23 01:00 Room Air Laboratory Results Laboratory Results - last 24 hr 08/05/23 08/05/23 08/05/23 13:51 14:22 14:51 WBC RBC Hgb Hct MCV MCH MCHC RDW Std Deviation RDW Coeff of Brigid Plt Count MPV Sodium Potassium Chloride Carbon Dioxide Anion Gap BUN Creatinine Est Cr Clr Drug Dosing Est GFR ( Amer) Est GFR (Non-Af Amer) BUN/Creatinine Ratio Glucose POC Glucose 113 H 104 H Calcium Phosphorus Magnesium Troponin I High Sens 70.5 H* D 08/05/23 08/05/23 08/05/23 17:13 18:53 20:06 WBC RBC Hgb Hct MCV MCH MCHC RDW Std Deviation RDW Coeff of Brigid Plt Count MPV Sodium Potassium Chloride Carbon Dioxide Anion Gap BUN Creatinine Est Cr Clr Drug Dosing Est GFR ( Amer) Est GFR (Non-Af Amer) BUN/Creatinine Ratio Glucose POC Glucose 103 H 154 H Calcium Phosphorus Magnesium Troponin I High Sens 113.4 H* D 08/06/23 08/06/23 08/06/23 04:56 08:14 11:19 WBC 8.40 RBC 3.73 L Hgb 12.2 Hct 36.8 L MCV 98.7 MCH 32.7 MCHC 33.2 RDW Std Deviation 43.6 RDW Coeff of Brigid 12.0 Plt Count 221 MPV 9.7 Sodium 139 Potassium 3.8 Chloride 110 H Carbon Dioxide 24 Anion Gap 5 BUN 9 Creatinine 0.76 Est Cr Clr Drug Dosing 65.4 Est GFR ( Amer) 92.8 Est GFR (Non-Af Amer) 80.0 BUN/Creatinine Ratio 11.8 Glucose 101 H POC Glucose 122 H 128 H Calcium 9.1 Phosphorus 3.3 Magnesium 1.8 Troponin I High Sens 73.1 H* D
--- NOTE | 2023-08-06 16:13 | Electrocardiogram Report ---
Test Reason : Blood Pressure : / mmHG Vent. Rate : 050 BPM Atrial Rate : 050 BPM P-R Int : 224 ms QRS Dur : 104 ms QT Int : 472 ms P-R-T Axes : 002 -25 019 degrees QTc Int : 430 ms Sinus bradycardia with 1st degree A-V block Minimal voltage criteria for LVH, may be normal variant Septal infarct (cited on or before 05-AUG-2023) Inferior infarct (cited on or before 06-AUG-2023) Abnormal ECG When compared with ECG of 06-AUG-2023 05:58, (unconfirmed) Questionable change in initial forces of Inferior leads Confirmed by Roshan Macias ([id number]) on 08/06/2023 4:13:05 PM Referred By: REFERRED SELF Confirmed By:Roshan Macias
--- NOTE | 2023-08-06 16:51 | Discharge Summary ---
Date of Service August 06, 2023 Admission HPI Per Admitting Provider 68-year-old female with past medical history significant for diabetes, allergic rhinitis, hypertension, GERD, osteoporosis, migraines, tremor, major depression, history of mitral valve prolapse presents with chest pain. Patient states she was in the library with her grandkid when she suddenly had 7 /10 burning chest pain in the middle of the chest with no radiation. She thinks she might of felt dizzy and short of breath during the episode. She dropped her granddaughter and came to ER. The pain lasted for 3 hours. Currently pain is gone. Resting comfortably hemodynamic stable. She recently diagnosed with bronchitis and taking Augmentin. But last 2 days she has no cough. Denies any fevers. She has migraines and currently has a headache. Denies any blurred visions,no earache. No runny nose. No sore throat. Appetite is okay. No nausea or nausea. No abdominal pain. Normal bowel and bladder movements. Hemodynamics are okay. Past medical history. As mentioned above Past surgical history. Exploration of abdomen. Laparoscopic cholecystectomy. Tonsillectomy and adenoidectomy. Social history. No smoking. No alcohol use. No drug use. Family history. Mother had allergies. Father had diabetes. AR. Parkinsonism. Sister has hypertension. Paternal grandfather had tremor. Maternal grandfather had pacemaker. Maternal grandmother had arthritis. Admission Exam Per Admitting Provider General- Not in distress Head- atraumatic Eyes- PERRL. ENT- oropharynx clear Neck- supple, no JVD. Lungs- clear to auscultation, no wheezing or crackles. Heart- regular rhythm; no murmur, no gallop. Abdomen- normal bowel sounds, soft, nontender, no distension. Extremities- no pretibial edema, no erythema seen. Neuro- alert, oriented PERRL,no facial palsy; no dysarthria; moves extremities. Principal Diagnosis Atypical chest pain Discharge Exam General- WD/WN F in NAD Head- atraumatic Eyes- PERRL. Neck- supple, no JVD. Lungs- clear to auscultation, no wheezing or crackles. Heart- regular rhythm; no murmur Abdomen- normal bowel sounds, soft, nontender Extremities- no pretibial edema, no erythema seen. 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 Discharge Data Allergies Allergy/AdvReac Type Severity Reaction Status Date / Time Sulfa (Sulfonamide Allergy Unknown HIVES Verified 08/04/23 20:06 Antibiotics) Consultations 08/04/23 19:45 ED Decision to Admit Stat 08/05/23 08:00 Consult Cardiology Routine Ordered Studies 08/06/23 04:42 CT head/brain wo con Routine FINDINGS: No acute intracranial hemorrhage, midline shift or mass effect is present. The ventricular system is unremarkable. The basal cisterns are patent. No extra-axial collections are present. There are no findings to suggest acute dural sinus thrombosis or acute territorial infarct. No significant calvarial abnormalities are present. There is a small air-fluid level within the right sphenoid sinus. IMPRESSION: No acute intracranial findings. Hospital Course (1) Chest pain: 68 yo F with past medical history significant for diabetes, allergic rhinitis, hypertension, GERD, osteoporosis, migraines, tremor, major depression, history of mitral valve prolapse presents with chest pain. Patient states she was in the library with her grandkid when she suddenly had 7 /10 burning chest pain in the middle of the chest with no radiation. She thinks she might of felt dizzy and short of breath during the episode. She dropped her granddaughter and came to ER. The pain lasted for 3 hours. Currently pain is gone. Resting comfortably hemodynamic stable. She recently diagnosed with bronchitis and taking Augmentin. But last 2 days she has no cough. Denies any fevers. She has migraines and currently has a headache. Denies any blurred visions,no earache. No runny nose. No sore throat. Appetite is okay. No nausea or nausea. No abdominal pain. Normal bowel and bladder movements. Hemodynamics are okay. Chest pain Troponin elevated 36 and repeat 38 Currently chest pain resolved EKG no acute findings serial cardiac enzymes and echo and repeat EKG Trop peaked at 113 Echo - LV is normal in size. Normal LV wall thickness. Septal motion is consistent with conduction abnormality. No regional wall motion abnormalities noted. EF 50 to 55%. Grade 1 diastolic dysfunction. Aortic valve sclerosis mild, without significant aortic valvular stenosis. Mitral valve leaflets are mildly thickened with mild prolapse of the posterior mitral valve leaflet. There is mild to moderate mitral regurg. There is mild tricuspid regurg. Med/telemetry Cardiology consulted for further recommendation - pt underwent stress test - dobutamine stress echo negative for ischemia with limitations of underlying conduction abnormalities. No cardiac symptoms induced. Blood pressure and heart rate response were normal and achieved 85% age-predicted maximal heart rate. Rate related left bundle branch block observed. Follow-up with cardiology 4 weeks Discussed symptoms and findings in detail with patient. If symptoms would recur will would proceed directly to coronary angiography for clarity given conduction abnormality. Current plan is for cardiac cath in 3 weeks as outpt. 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 Seen by cardiology Total Time Total Time Spent Total Time Spent (In Minutes): 40 Discharge Plan Discharge Items Patient Disposition: Home - Self-Care Reason For Visit: CHEST PAIN Discharge Diagnosis: Atypical chest pain Activity: Per Instructions section Non-emergency contact: Primary Care Provider and Director Of [employer] Call non-emergency contact if: you have any medication questions and your symptoms worsen Follow-up/Referrals: Vernon Hazel MD [Physician] - (The Cardiology office will contact you for a follow up appointment/testing.) Vlad Grant MD [Primary Care Provider] - (Date & Time 08/12/2023 3:00 PM Provider Vlad Grant MD [facility] ) Reji Smith MD [Outside Practitioners] - (The Neurology office will contact you for an appointment.) Diet: Carb Consistent or DM2 and Heart Healthy Addtl Attending Provider Instructions: Follow up with primary care physician within 1 week. You will also need to follow up with cardiology, you will be contacted about the appointment with them. Also, recommend to follow up with your neurologist / movement specialist. In addition, recommend to start taking omeprazole to see if that helps with your symptoms. Pending Studies at Discharge: No Stand-Alone Forms: Braclet, Smoking Cessation Medications and DC Order Prescriptions: New omeprazole 20 mg capsule,delayed release(DR/EC) 20 mg PO DAILY Qty: 30 0RF Continued fluoxetine 40 mg capsule 40 mg PO QAM clonazepam 1 mg tablet See Rx Instructions .ROUTE .COMPLEX Rx Instructions: Take 3/4 tab in AM & NOON. Take 1 tab @ hs fluticasone propionate 50 mcg/actuation spray,suspension 2 spray INTRANASAL QAM PRN (Reason: Nasal Congestion) amoxicillin-pot clavulanate 500-125 mg tablet 1 tab PO AMHS atorvastatin 20 mg tablet 20 mg PO QAM diltiazem HCl 180 mg capsule,extended release 24hr 180 mg PO DAILY propranolol 60 mg capsule,extended release 24 hr 60 mg PO QAM aspirin [Aspir-Low] 81 mg Tablet,Delayed Release (Dr/Ec) 81 mg PO Q OTHER DAY lamotrigine 25 mg tablet 50 mg PO QAM Rx Instructions: PATIENT ONLY TAKS 2 TABS IN QAM primidone 250 mg tablet 250 mg PO BID Rx Instructions: THIS DOSE IS STATED BY PATIENT dicyclomine 20 mg tablet 20 mg PO BID PRN (Reason: .ABD CRAMPS) losartan 25 mg tablet 25 mg PO DAILY cyclosporine [Restasis] 0.05 % dropperette 1 drp OPB BID vilazodone 20 mg tablet 20 mg PO QAM Discharge Orders: Discharge Order (Routine); Ordered 08/06/23 Ordered By: Hamzah Milton/Other Patient Handouts: Managing Type 2 Diabetes Admission Data Admit Date/Time: 08/04/23 23:21 Attending Provider: Hamzah Ayala Admit Provider: Garry Au Primary Care Provider: Vlad Grant Other Providers: Garry Au; Vernon Hazel
--- OUTSIDE RECORDS SUMMARY | 2023-08-07 08:59 | External Medical Summary | Summary of Care ---
Author Name Unknown Organization [facility] Address [address] [place] [address] Phone [phone] Care Team Providers Care Patients Transporter Name Role Phone Vlad Grant MD Primary Care Provider [phone] Reason for Visit * Reason Onset Date Comments Advice 08/06/2023 Encounter Details Date Type Department Care Team (Late st Contact Info) Description 08/06/2023 Telephone Cardiology, [facility] [address] [place] [id number] Vernon Hazel MD [address] [place] [phone] Advice Allergies Active Allergy Reactions Criticality Noted Date Comments Sulfa Antibiotics 07/24/2002 documented as of this encounter (statuses as of 08/06/2023) Medications Medication Sig Dispensed Refills Start Date [...] bedtime. 34 Capsule 5 06/15/2022 Active FreeStyle [place] Lite w/Device Kit USE ONCE A DAY [...] as of this encounter (statuses as of 08/06/2023) Active Problems Problem Noted Date Diagnosed Date Major depressive disorder wi th single episode, in partial remission 09/21/2022 Diabetes mellitus without complication 3 Osteoporosis without current pathological fractu re 11/16/2018 Gastroesophageal reflux disease 11/16/2018 HTN, goal below 140/90 07/01/2018 Tremor 02/09/2011 Allergic rhinitis 01/12/2003 COMMON MIGRAINE WITHOUT MENTION OF INTRACTABLE M IGRAINE Esotropia documented as of this encounter (statuses as of 08/06/2023) Resolved Problems Problem Noted Date Diagnosed Date [...] as of this encounter (statuses as of 08/06/2023) Immunizations Name Administration Dates Next Due COVID-19 [...] encounter Miscellaneous Notes * Telephone Encounter - Vernon Hazel MD - 08/06/2023 12:05 PM EDT Patient seen during hospitalization at [facility] for atypical chest pain. Dobutamine stress echocardiography negative for ischemia but conduction changes of left bundle branch block present. Discussed options patient wishes clarit given y we will arrange for outpatient cardiac cat heterization 3 weeks time. Please schedule documented in this encounter Plan of Treatment Upcoming Encounters Date Type Department Care Team (Late st Contact Info) Description 08/12/2023 3:00 PM EDT [facility] [address] [facility] [id number] Vlad Grant MD [address] [place] [facility] [place] [id number] 09/30/2023 3:40 PM EDT [facility] [address] [facility] [phone] Vlad Grant MD [address] [place] [facility] [place] [id number] 01/25/2024 11:20 AM EDT Office Visit Neurology [facility] [address] [place] [address] Reji Smith MD [address] [place] [address] 06/12/2024 3:00 PM EST Cardiac Studies Cardiac Studies, [facility] [address] [facility] [place] [address] Health Maintenance Due Date Last Done Comments Hepatitis C Screening 1973 COLONOSCOPY-EVERY 5 YRS AGES 18-100 09/23/2009 09/23/2004, 07/12/2000 Zoster Vaccines (2 of 3) 04/07/2016 02/11/2016 Depression Screening 03/28/2020 03/28/2019 *BISPHONATE OR OTHER ACCEPTABLE MEDICATION NEEDED FOR OSTEOPOROSIS (REFER TO SMARTSET #1146) 12/07/2021 COVID-19 Vaccine ( season) 2023 02/16/2022, 03/12/2021, 08/27/2020, Additional history exists DXA Scan 09/09/2023 09/08/2021, 09/07, 12/09/2015 HbA1c 01/29/2024 07/29/2023, 09/07, 12/26/2020, Additional history exists Mammogram 05/20/2024 05/20/2023, 11/08, 01/15/2016, Additional history exists Diabetic Foot Exam 05/31/2024 05/31/2023 Albumin/Creatinine Ratio 07/28/2024 024, 10/12/2022, 01/29/2021 Diabetic Eye Exam 07/28/2024 07/29/2023 GFR 07/28/2024 07/29/2023, 09/07, 01/29/2021, Additional history exists Lipid Panel 09/25/2027 09/24/2022, 12/08, 01/29/2021, Additional history exists DTaP,Tdap,and Td Vaccines Discontinued 09/12/2008, 12/1996 VITAMIN D LEVEL ONCE IN A LIFETIME-USE SMARTSET# 64025 Completed 04/23/2016, 12/28/2013, 08/08/2008 Pneumococcal Vaccine: 65+ Years Completed 04/20/2022, 03/12/2021 Influenza Vaccine (FLU shot) Completed 02/16/2023, 06/26/2020, 06/09/2019, Additional history exists GARDASIL-HPV IMMUNIZATION SERIES Aged [...] filedocumented as of this encounter Care Teams Patients Transporter Relationship Specialty Start Date End Date Vlad Grant MD [address] [place] [address] PCP - General 02/26/00 documented as of this encounter
--- NOTE | 2023-08-09 14:21 | Electrocardiogram Report ---
Test Reason : Blood Pressure : / mmHG Vent. Rate : 063 BPM Atrial Rate : 063 BPM P-R Int : 216 ms QRS Dur : 104 ms QT Int : 442 ms P-R-T Axes : 007 -20 062 degrees QTc Int : 452 ms Sinus rhythm with 1st degree A-V block Septal infarct (cited on or before 05-AUG-2023) Inferior infarct (cited on or before 06-AUG-2023) Abnormal ECG When compared with ECG of 06-AUG-2023 05:59, No significant change was found Confirmed by Neo Judge ([id number]) on 08/09/2023 2:21:33 PM Referred By: REFERRED SELF Confirmed By:Neo Judge
== END 2023-08-06 18:00 | disposition home or self-care (01) ==
LOC: ED 17:46 → EDINP 17:46 → SUATTDRO 23:21 → 2N 08-05 00:27